=== PATIENT | female | born 1955 | race American Indian/Alaskan Native ===

== ENCOUNTER 2017-03-12 13:32 | Emergency (ER) | payer OTHER ==
[~2017-03-12] VITALS: Ht 162.6 cm; Wt 95.7 kg
--- OUTSIDE RECORDS SUMMARY | ~2017-03-12 | XMS | Clinical Summary ---
Demographics + + + | Address | [address] | | | [place] [address] | + + + | Home Phone | | + + + | Preferred Language | Unknown | + + + | Marital Status | Single | + + + | Confucianism Affiliation | BAP | + + + [...] | Unavailable | + + + Support +------+ +---------+ + | Name | Relationship | Address | Phone | +------+ +---------+ + ECON | Unknown | | +------+ +---------+ + Care Team Providers + +------+ + | Care Sales Director Name | Role | Phone | + +------+ + PP | Unavailable | + +------+ + Source Comments AMELIA is fully live [facility] both [facility] Allergies + + + + + [...] 2.5 mg by mouth | | | /2 | | Activ | | Oral Tablet [...] | | | | (FLU SHOT) | 7 | | | + + + + + Results Not on filefrom Last 3 Months
[~2017-03-12 13:32] MED LIST: ASPIR 8181 MG PO; BASLE60 GM; BETAMETHASONE V60 ML; BYETTA5 MCG/0.02 SQ; CRESTOR10 MG PO; DULERA 100 MCG/13 GM; ERGOCALCIF50000 UNIT; ERYTHROMYCIN3.5 GM OD; FLUCONAZOLE150 MG PO; GLIPIZIDE XL10 MG; GLIPIZIDE XL10 MG PO; GLYBURIDE5 MG PO; IBUPROFEN400 MG PO; ISOSORBIDE MONO30 MG PO; JANUVIA25 MG PO; LANTUS SOL100 UNIT/1 SUB-Q; LEVOTHROID125 MCG PO; LEVOTHYROXINE150 MCG; LEXAPRO20 MG PO; LISINOPRIL10 MG PO; MAGNESIUM400 MG; METOCLOPRAMIDE10 MG PO; METOPROLOL SUCC25 MG PO; NITROGLYCERIN0.4 MG SL; NORCO 5-325 TA1 EACH; NOVOLOG FL100 UNIT/1 SUB-Q; OMEGA-31000 MG PO; PRILOSEC20 MG PO; PROTOPIC100 G1 TP; SIMVASTATIN10 MG PO; SIMVASTATIN5 MG PO; SOOTHING CARE28 GM TOP; TEMOVATE EMOLLI60 GM; VANOS60 GM; VITAMIN D250000 UNIT PO; VITAMIN D5000 UNI1 PO; ZOLOFT25 MG PO
[2017-03-12] MEDS ORDERED: ASPIR 8181 MG PO (13:44)
--- NOTE | 2017-03-12 16:52 | EKG ---
[facility] [address] [facility] [place] [address] Signed Normal sinus rhythm Normal ECG When compared with ECG of 27-DEC-2015 05:55, No significant change was found Confirmed by LIS CORRAL MD ([id number]) on 03/12/2017 4:51:42 PM Electronically Signed By: LIS CORRAL MD 03/12/17 165 PATIENT NAME: RACHAEL GARCIA Electrocardiogram DATE OF : 51 PHYSICIAN: LIS CORRAL MD REPORT #: [id number] REPORT IS CONFIDENTIAL AND NOT TO BE RELEASED WITHOUT AUTHORIZATION
[2017-03-12] MEDS ORDERED: NITROGLYCERIN0.4 MG SL (17:25)
== END 2017-03-12 17:37 | disposition left against medical advice (07) ==
LOC: ED 13:32
DX: R07.9 Chest pain, unspecified (principal); R06.02 Shortness of breath; I10 Essential (primary) hypertension; K21.9 Gastro-esophageal reflux disease without esophagitis; E11.9 Type 2 diabetes mellitus without complications; E78.5 Hyperlipidemia, unspecified; Z90.49 Acquired absence of other specified parts of digestive tract; Z98.51 Tubal ligation status; Z95.5 Presence of coronary angioplasty implant and graft; Z88.2 Allergy status to sulfonamides; Z91.030 Bee allergy status; Z79.899 Other long term (current) drug therapy; Z79.4 Long term (current) use of insulin; Z79.82 Long term (current) use of aspirin
CPT/HCPCS: 36415; 71010; 80053; 84484; 85025; 85379; 93005; 93010; 99284

== ENCOUNTER 2017-06-19 09:12 | Observation (INO) | payer OTHER ==
[~2017-06-19] VITALS: Ht 162.6 cm; Wt 95.7 kg
--- OUTSIDE RECORDS SUMMARY | ~2017-06-19 | XMS | Clinical Summary ---
Demographics + + + | Address | [address] | | | [place] [address] | + + + | Home Phone | | + + + | Preferred Language | Unknown | + + + | Marital Status | Legally | + + + | Jew Affiliation | Unknown | + + + | Race | Unknown | + + + | Ethnic Group | Unknown | + + + Author + + + | Author | [facility] | | | and [place] | + + + | Organization | [facility] | | | and [place] | + + + | Address | Unknown | + + + | Phone | Unavailable | + + + Care Team Providers + +------+ + | Care Fish Peddler Name | Role | Phone | + [...] | 09/ | | Activ | | [place] [facility] | puffs every 6 hours | [...] | | + +--------+ +--------+ +---------+ | [facility] | IHS | xxxxxxxxx | Indemn [...] | Self | [birth year] | Home: | [address] | | | [place] | | 1956 | [phone] | [place] [address] | | | beulah | | | [phone] | | + +--------+ +--------+ + +
--- OUTSIDE RECORDS SUMMARY | ~2017-06-19 | XMS | Clinical Summary ---
Demographics + + + | Address | [address] | | | [place] [address] | + + + | Home Phone | | + + + | Preferred Language | Unknown | + + + | Marital Status | Unknown | + + + | Hoahaoism Affiliation | Unknown | + + + | Race | Unknown | + + + | Ethnic Group | Unknown | + + + Author + + + | Author | [facility] | + + + | Organization | [facility] | + + + | Address [...] Team Providers + +------+ + | Care Goring Cutter Name | Role | Phone | + [...] | | | Activ | | (DRISDOL) [id number] | mouth once a week. | | [...] | | | | | | [place] [address] | | | | | | [phone] | | | | | | | [...] | | | + +--------+ +------+-------+---------+ | [facility] | YELLOW | xxxxxxxxx | | [...] | Self | [birth year] | Home: | [address] | | | [place] | | [phone] | [place] | | | beulah | | | [phone] | [phone] | + +--------+ +--------+ + +
--- OUTSIDE RECORDS SUMMARY | ~2017-06-19 | XMS | Clinical Summary ---
Demographics + + + | Address | [address] | | | [place] [address] | + + + | Home Phone | | + + + | Preferred Language | Unknown | + + + | Marital Status | Single | + + + | Episcopalian Affiliation | BAP | + + + [...] Team Providers + +------+ + | Care Microcomputer Support Specialist Name | Role | Phone | + +------+ + PP | Unavailable | + +------+ + Source Comments AMELIA is fully live on both [facility] and [facility] InPatient.[facility] Allergies + + + + + + [...]
--- OUTSIDE RECORDS SUMMARY | ~2017-06-19 | XMS | Encounter Summary ---
Demographics + + + | Address | [address] | | | [place] [address] | + + + | Home Phone | | + + + | Preferred Language | Unknown | + + + | Marital Status | Unknown | + + + | Spiritism Affiliation | Unknown | + + + | Race | Unknown | + + + | Ethnic Group | Unknown | + + + Author + + + | Author | [facility] | + + + | Organization | [facility] | + + + | Address [...] Team Providers + +------+ + | Care Dental Coordinator Name | Role | Phone | + [...] [place], | | | | | [place] | [place] [address] | | | | | [address] | [phone] | | | | | [phone] | | | +--------+ + + + [...] | | | | | | [place] [address] | | | | | | [phone] | | | | | | | | +--------+ + + + + as of this encounter Visit Diagnoses Not on filein this encounter"
[2017-06-19] MEDS ORDERED: BETAMETHASONE V60 ML TOP (10:03)
--- OUTSIDE RECORDS SUMMARY | 2017-06-19 10:37 | XMS | Clinical Summary ---
Demographics + + + | Address | [address] | | | [place] [address] | + + + | Home Phone | | + + + | Preferred Language | Unknown | + + + | Marital Status | Unknown | + + + | Hinduism Affiliation | Unknown | + + + | Race | Unknown | + + + | Ethnic Group | Unknown | + + + Author + + + | Author | [employer] [facility] | + + + | Organization | [facility] [employer] | + + + | Address | Unknown | + + + | Phone | Unavailable | + + + Support + + +---------+ + | Name | Relationship | Address | Phone | + + +---------+ + | Raad Steward | ECON | Unknown | | + + +---------+ + | Shawn Peña | ECON | Unknown | | + + +---------+ + Care Team Providers + +------+ + | Care Laundromat Worker Name | Role | Phone | + +------+ + | Padmini Lo MD | PP | | + +------+ + Allergies + + + + + + | Active Allergy | Reactions | Severity | Noted | Comments | | | | | Date | | + + + + + + | Sulfa Antibiotics | Nausea Only | Low | 02/28/20 | | | | | | 14 | | + + + + + + Current Medications + + +-------+---------+------+------+-------+ | Prescription | Sig. | Disp. | Refills | Star | End | Statu | | | | | | t | Date | s | | | | | | Date | | | + + +-------+---------+------+------+-------+ | albuterol | Inhale 2 puffs into | | | | | Activ | | (PROVENTIL | the lungs every 4 | | | | | e | | HFA;VENTOLIN HFA) | (four) hours as | | | | | | | 108 (90 BASE) | needed for Wheezing. | | | | | | | MCG/ACT inhaler | | | | | | | + + +-------+---------+------+------+-------+ | insulin aspart | Inject 15 Units into | | | | | Activ | | (NOVOLOG) 100 | the skin 3 (three) | | | | | e | | UNIT/ML injection | times daily before | | | | | | | | meals. Sliding scale | | | | | | + + +-------+---------+------+------+-------+ | insulin glargine | Inject 40 Units into | | | | | Activ | | (LANTUS) 100 UNIT/ML | the skin 2 (two) | | | | | e | | injection | times daily. | | | | | | + + +-------+---------+------+------+-------+ | clotrimazole | Place 1 applicator | | | | | Activ | | (LOTRIMIN) 1 % | vaginally 2 (two) | | | | | e | | vaginal cream | times daily as | | | | | | | | needed. | | | | | | + + +-------+---------+------+------+-------+ | hydrocortisone 2.5 | Apply topically 2 | | | | | Activ | | % ointment | (two) times daily as | | | | | e | | | needed. | | | | | | + + +-------+---------+------+------+-------+ | methylcellulose | Place 1 drop into | | | | | Activ | | (ARTIFICIAL TEARS) 1 | both eyes nightly as | | | | | e | | % ophthalmic | needed. | | | | | | | solution | | | | | | | + + +-------+---------+------+------+-------+ | levothyroxine | Take 150 mcg by | | | | | Activ | | (SYNTHROID) 150 MCG | mouth every morning | | | | | e | | tablet | before breakfast. | | | | | | + + +-------+---------+------+------+-------+ | aspirin 81 MG EC | Take 81 mg by mouth | | | | | Activ | | tablet | daily with | | | | | e | | | breakfast. | | | | | | + + +-------+---------+------+------+-------+ | nitroGLYCERIN | Place 0.4 mg under | | | | | Activ | | (NITROSTAT) 0.4 MG | the tongue every 5 | | | | | e | | SL tablet | (five) minutes as | | | | | | | | needed for Chest | | | | | | | | pain. | | | | | | + + +-------+---------+------+------+-------+ | ergocalciferol | Take 50,000 Units by | | | | | Activ | | (DRISDOL) 92774 | mouth once a week. | | | | | e | | UNITS capsule | | | | | | | + + +-------+---------+------+------+-------+ | escitalopram | Take 10 mg by mouth | | | | | Activ | | (LEXAPRO) 20 MG | daily. | | | | | e | | tablet | | | | | | | + + +-------+---------+------+------+-------+ | ibuprofen (MOTRIN) | Take 600 mg by mouth | | | | | Activ | | 600 MG tablet | every 6 (six) hours | | | | | e | | | as needed for Pain. | | | | | | + + +-------+---------+------+------+-------+ | | Take 1 tablet by | | | | | Activ | | HYDROcodone-acetamin | mouth every 6 (six) | | | | | e | | ophen (KADLEC | hours as needed for | | | | | | | DISPENSED | Pain. | | | | | | | MEDICATION) 5-325 MG | | | | | | | | (6 tab pre-ronald) | | | | | | | + + +-------+---------+------+------+-------+ | metoprolol | Take 25 mg by mouth | | | | | Activ | | (TOPROL-XL) 25 MG 24 | daily. | | | | | e | | hr tablet | | | | | | | + + +-------+---------+------+------+-------+ | omeprazole | Take 20 mg by mouth | | | | | Activ | | (PRILOSEC) 20 MG | every morning before | | | | | e | | capsule | breakfast. | | | | | | + + +-------+---------+------+------+-------+ | simvastatin | Take 10 mg by mouth | | | | | Activ | | (ZOCOR) 10 MG tablet | nightly. | | | | | e | + + +-------+---------+------+------+-------+ | magnesium oxide | Take 400 mg by mouth | | | | | Activ | | (MAG-OX) 400 MG | nightly. | | | | | e | | tablet | | | | | | | + + +-------+---------+------+------+-------+ Active Problems + + + | Problem | Noted Date | + + + | CAD (coronary artery disease) | 02/27/2014 | + + + + + | Last Assessment & Plan: 1V-CAD, Hx PCI/stent, LVEF 60-65%. | | 59yo MARCUS, with known coronary disease, she's been plagued | | by frequent recurrent episodes of chest discomfort, somewhat | | atypical nature. They generally are migratory, and fleeting. A | | nuclear perfusion study has been performed, and this is benign. | | Recent labs reviewed. Reassurance given. Tolerating | | medications. No changes in therapy. Lifestyle modifications | | encouraged, this includes exercise and caloric restriction.Hx | | CABG: noHx PCI/stent: 12/23/2004, LAD (2.75*18mm Cypher DARY).Hx | | Pacemaker/ICD: noLast Cath: 12/01/2006: left main OK, LAD stent | | patent with 20% distal in-stent restenosis, LCx OK, RCA | | non-dominant, LVEF 65%.Last Echo, 08/19/2010: LVEF 60-65%, mild | | LAE, mild MR, mild TR, trace AI, trace PI.Last stress test, | | 06/03/2014: 5:15min Jose Francisco, no chest pain, ECG (-), images NML, | | LVEF 69%.ECG, 01/23/2014: sinus rhythm, PRWP, non-spec ST-T | | changes anteriorly. | + + + + + | HTN (hypertension) | 02/27/2014 | + + + + + | Last Assessment & Plan: Hypertension, controlled, continue | | current meds.Lab, 06/23/2014: Trop-T: <0.010, AST/ALT: 5877, K: | | 4.4, BUN/Cr: 101/0.6, glu: 348, M.7 | | WBC: 6.8, H/H: 13.0/41.9, plt: 224Lab, 09/03/2014: TSH: 2.17, free | | T4: 1.44, HgbA1c: 10.7 | + + + + + | HLD (hyperlipidemia) | 02/27/2014 | + + + + + | Last Assessment & Plan: Hyperlipidemia, managed by PCP. Labs | | requested. | + + + + + | Diabetes mellitus, type 2 | 02/27/2014 | + + + + + | Last Assessment & Plan: DM2, managed by PCP. | + + + + + | GERD (gastroesophageal reflux disease) | 02/27/2014 | + + + + + | Last Assessment & Plan: Hx HH/GERD, IBS. | + + Encounters +--------+ + + + + | Date | Type | Specialty | Care Team | Description | +--------+ + + + + | 03/23/ | Documentati | | Josh Cullen, | | | 2017 | on Only | | MD | | +--------+ + + + + from Last 3 Months Family History + + +------+ + | Medical History | Relation | Name | Comments | + + +------+ + | Heart disease | Father | | | + + +------+ + | Hypertension | Mother | | | + + +------+ + + +------+ + + | Relation | Name | Status | Comments | + +------+ + + | Father | | | heart disease, cirrhosis of liver | | | | (Age | | | | | 72) | | + +------+ + + | Mother | | | MVA, Angina Pectoris,HTN | | | | (Age | | | | | 54) | | + +------+ + + Social History + + + +--------+ + | Tobacco Use | Types | Packs/Day | Years | Date | | | | | Used | | + + + +--------+ + | Former Smoker | Cigarettes | 1 | 41 | Quit: 06/11/2006 | + + + +--------+ + + +---+---+---+ | Smokeless Tobacco: | | | | | Never Used | | | | + +---+---+---+ + + +---------+ + | Alcohol Use | Drinks/We | oz/Week | Comments | | | ek | | | + + +---------+ + | No | 0 | 0.0 | | | | Standard | | | | | drinks or | | | | | | | | | | equivalen | | | | | t | | | + + +---------+ + + + + | Sex Assigned at | Date Recorded | | | | + + + | Not on file | | + + + Last Filed Vital Signs + + + + | Vital Sign | Reading | Time Taken | + + + + | Blood Pressure | 110/64 | 09/04/2014 12:44 PM PDT | + + + + | Pulse | 64 | 09/04/2014 12:44 PM PDT | + + + + | Temperature | - | - | + + + + | Respiratory Rate | 16 | 09/04/2014 12:44 PM PDT | + + + + | Oxygen Saturation | 98% | 09/04/2014 12:44 PM PDT | + + + + | Inhaled Oxygen | - | - | | Concentration | | | + + + + | Weight | 91.6 kg (202 lb) | 09/04/2014 12:44 PM PDT | + + + + | Height | 162.6 cm (5' 4") | 09/04/2014 12:44 PM PDT | + + + + | Body Mass Index | 34.67 | 09/04/2014 12:44 PM PDT | + + + + Plan of Treatment +--------+ + + + + | Date | Type | Specialty | Care Team | Description | +--------+ + + + + | 07/24/ | Initial | | Josh Cullen, | | | 2018 | consult | | MD [address] | | | | | | [place], | | | | | | [place] [address] | | | | | | [phone] | | | | | | | | +--------+ + + + + + + + + + | Health Maintenance | Due Date | Last Done | Comments | + + + + + | Diabetic Eye Exam | | | | | | 4 | | | + + + + + | Diabetic Foot Exam | | | | | | 4 | | | + + + + + | Hemoglobin A1c | | | | | | 4 | | | + + + + + | Microalbumin | | | | | Screening | 4 | | | + + + + + | Vaccine: | | | | | Dtap/Tdap/Td (1 - | 3 | | | | Tdap) | | | | + + + + + | Vaccine: | | | | | Pneumococcal 19-64 | 3 | | | | (PPSV23 only) Medium | | | | | Risk (1 of 1 - | | | | | PPSV23) | | | | + + + + + | Cervical Cancer | | | | | Screening (Pap) | 5 | | | + + + + + | Breast Cancer | | | | | Screening | 4 | | | | (Mammogram) | | | | + + + + + | Colon Cancer | | | | | Screening | 4 | | | | (Colonoscopy) | | | | + + + + + | Vaccine: Zoster (#1) | | | | | | 4 | | | + + + + + | Statin Therapy | | | | | (optimal intensity) | 6 | | | + + + + + | Vaccine: Influenza | | | | | (Season Ended) | 8 | | | + + + + + Results Not on filefrom Last 3 Months Insurance + +--------+ +------+-------+---------+ | Payer | Benefi | Subscriber | Type | Phone | Address | | | t Plan | ID | | | | | | / | | | | | | | Group | | | | | + +--------+ +------+-------+---------+ | [employer] | YELLOW | xxxxxxxxx | | | | | PLANS | [place] | | | | | + +--------+ +------+-------+---------+ + +--------+ +--------+ + + | Guarantor Name | Accoun | Relation to | Date | Phone | Billing Address | | | t Type | Patient | of | | | | | | | | | | + +--------+ +--------+ + + | RACHAEL CARCAMO | Person | Self [birth year] Home: | [address] | | | [place] | | [phone] [place] | | | [place] | | | [phone] | [address] | + +--------+ +--------+ + +
--- OUTSIDE RECORDS SUMMARY | 2017-06-19 10:37 | XMS | Encounter Summary ---
Demographics + + + | Address | [address] | | | [place] [address] | + + + | Home Phone | | + + + | Preferred Language | Unknown | + + + | Marital Status | Unknown | + + + | Gnosticist Affiliation | Unknown | + + + | Race | Unknown | + + + | Ethnic Group | Unknown | + + + Author + + + | Author | [employer] | + + + | Organization | [facility] [employer] | + + + | Address [...] Team Providers + +------+ + | Care Support Architect Name | Role | Phone | + +------+ + | Padmini Lo MD | PCP | | + +------+ + Encounter Details +--------+ + + + + | Date | Type | Department | Care Team | Description | +--------+ + + + + | 03/23/ | Documentati | [facility] | Josh Cullen, | | | 2018 | on Only | Cardiology Eric | [address] | | | | | [address] | [place], | | | | | [place] | [place] [address] | | | | | [address] | [phone] | | | | | [phone] | | | +--------+ + + + + Social History + + + [...] on file | | + + + as of this encounter Plan of Treatment +--------+ + + + + | Date | Type | Specialty | Care Team | Description | +--------+ + + + + | 07/24/ | Initial | Cardiology | Josh Cullen, | | | 2018 | consult | | [address] | | | | | | [place], | | | | | | [place] [address] | | | | | | [phone] | | | | | | | | +--------+ + + + + as of this encounter Visit Diagnoses Not on filein this encounter"
--- OUTSIDE RECORDS SUMMARY | 2017-06-19 10:37 | XMS | Clinical Summary ---
Demographics + + + | Address | [address] | | | [place] [address] | + + + | Home Phone | | + + + | Preferred Language | Unknown | + + + | Marital Status | Single | + + + | Temple Affiliation | BAP | + + + | Race | White | + + + | Ethnic Group | Not or | + + + Author + + + | Author | [facility] | + + + | Organization | NON REVEN[facility] LOC[facility] | + + + | Address | Unknown | + + + | Phone | Unavailable | + + + Support + + +---------+ + | Name | Relationship | Address | Phone | + + +---------+ + | KHUSHI PIERCE | ECON | Unknown | | + + +---------+ + Care Team Providers + +------+ + | Care Lion Tamer Name | Role | Phone | + +------+ + PP | Unavailable | + +------+ + Source Comments [facility] is [facility] and [facility] Allergies + + + + + + | Active Allergy | Reactions | Severity | Noted | Comments | | | | | Date | | + + + + + + | Penicillins | | | 04/05/19 | | | | | | 11 | | + + + + + + | Sulfa (Sulfonamide | | | 04/05/19 | | | Antibiotics) | | | 11 | | + + + + + + Current Medications + + +-------+---------+------+------+-------+ | Prescription | Sig. | Disp. | Refills | Star | End | Statu | | | | | | t | Date | s | | | | | | Date | | | + + +-------+---------+------+------+-------+ | glyBURIDE 2.5 mg | Take 2.5 mg by mouth | | | 03/14 | | Activ | | Oral Tablet | two times daily. | | | 06/30 | | e | | | | | | 11 | | | + + +-------+---------+------+------+-------+ | Aspirin 81 mg Oral | Take 81 mg by mouth | | | | | Activ | | Tablet | once daily. | | | | | e | + + +-------+---------+------+------+-------+ | omeprazole 20 mg | Take 20 mg by mouth | | | | | Activ | | Oral Capsule, | once daily. | | | | | e | | Delayed | | | | | | | | Release(E.C.) | | | | | | | + + +-------+---------+------+------+-------+ | levothyroxine 150 | Take 150 mcg by | | | | | Activ | | mcg Oral Tablet | mouth once daily. | | | | | e | + + +-------+---------+------+------+-------+ | Ergocalciferol, | Take 50,000 Units by | | | | | Activ | | Vitamin D2, 50,000 | mouth. | | | | | e | | unit Oral Tablet | | | | | | | + + +-------+---------+------+------+-------+ | docusate sodium | Take 100 mg by mouth | | | | | Activ | | 100 mg Oral Capsule | two times daily. | | | | | e | + + +-------+---------+------+------+-------+ | SALSALATE ORAL | Take by mouth. | | | | | Activ | | | | | | | | e | + + +-------+---------+------+------+-------+ | IPRATROPIUM | Inhale. | | | | | Activ | | BROMIDE INHL | | | | | | e | + + +-------+---------+------+------+-------+ | nitroglycerin 0.3 | Place 0.3 mg under | | | | | Activ | | mg Sublingual | tongue every five | | | | | e | | Tablet, Sublingual | minutes as needed. | | | | | | | | Do not crush. Place | | | | | | | | under tongue and | | | | | | | | allow to dissolve. | | | | | | | | Administer every 5 | | | | | | | | minutes for a | | | | | | | | maximum of 3 doses | | | | | | | | in 15 minutes. | | | | | | + + +-------+---------+------+------+-------+ | hydrocortisone 2.5 | by Topical route two | | | | | Activ | | % Topical Cream | times daily. Apply | | | | | e | | | a thin film to | | | | | | | | clean, dry skin and | | | | | | | | rub in gently. | | | | | | + + +-------+---------+------+------+-------+ | Hydrophilic | by Topical route. | | | | | Activ | | Topical Ointment | | | | | | e | + + +-------+---------+------+------+-------+ | pioglitazone | Take 15 mg by mouth | | | | | Activ | | (ACTOS) 15 mg Oral | once daily. | | | | | e | | Tablet | | | | | | | + + +-------+---------+------+------+-------+ Active Problems + + + | Problem | Noted Date | + + + | Enchondroma | 04/22/2010 | + + + Family History + + +------+ + | Medical History | Relation | Name | Comments | + + +------+ + | Heart Disease | Brother | | | + + +------+ + | Heart Disease | Brother | | | + + +------+ + | Heart Disease | Father | | | + + +------+ + | Cancer | Maternal | | | | | Aunt | | | + + +------+ + | Diabetes | Maternal | | | | | Aunt | | | + + +------+ + | Diabetes | Maternal | | | | | Uncle | | | + + +------+ + | Cancer | Mother | | stomach;uterus | + + +------+ + | Heart Disease | Mother | | | + + +------+ + + +------+--------+ + | Relation | Name | Status | Comments | + +------+--------+ + | Brother | | | | + +------+--------+ + | Brother | | | | + +------+--------+ + | Father | | | | + +------+--------+ + | Maternal Aunt | | | | + +------+--------+ + | Maternal Uncle | | | | + +------+--------+ + | Mother | | | | + +------+--------+ + Social History + +-------+ +--------+------+ | Tobacco Use | Types | Packs/Day | Years | Date | | | | | Used | | + +-------+ +--------+------+ | Never Assessed | | | | | + +-------+ +--------+------+ + + + | Sex Assigned at | Date Recorded | | | | + + + | Not on file | | + + + Last Filed Vital Signs + + + + | Vital Sign | Reading | Time Taken | + + + + | Blood Pressure | 122/77 | 04/05/2010 1:08 PM PST | + + + + | Pulse | 87 | 04/05/2010 1:08 PM PST | + + + + | Temperature | 36.6 C (97.9 F) | 10/04/2010 2:59 PM PDT | + + + + | Respiratory Rate | - | - | + + + + | Oxygen Saturation | - | - | + + + + | Inhaled Oxygen | - | - | | Concentration | | | + + + + | Weight | 95.3 kg (210 lb) | 10/04/2010 2:59 PM PDT | + + + + | Height | 162.6 cm (5' 4") | 10/04/2010 2:59 PM PDT | + + + + | Body Mass Index | 36.05 | 10/04/2010 2:59 PM PDT | + + + + Plan of Treatment + + + + + | Health Maintenance | Due Date | Last Done | Comments | + + + + + | INFLUENZA VACCINE | | | | | (FLU SHOT) | 8 | | | + + + + + Results Not on filefrom Last 3 Months
--- OUTSIDE RECORDS SUMMARY | 2017-06-19 10:37 | XMS | Clinical Summary ---
Demographics + + + | Address | [address] | | | [place] [address] | + + + | Home Phone | | + + + | Preferred Language | Unknown | + + + | Marital Status | Legally | + + + | Lutheran Affiliation | Unknown | + + + | Race | Unknown | + + + | Ethnic Group | Unknown | + + + Author + + + | Author | [facility] | | | and [place] | + + + | Organization | [facility] | | | and [place] | + + + | Address | Unknown | + + + | Phone | Unavailable | + + + Care Team Providers + +------+ + | Care Video Games Storywriter Name | Role | Phone | + +------+ + | Kevin Eagle PA-C | PP | | + +------+ + Allergies + + + +--------+ + | Active Allergy | Reactions | Severity | Noted | Comments | | | | | Date | | + + + +--------+ + | Amoxicillin-Pot | | | | | | Clavulanate | | | | | + + + +--------+ + | Bee Venom | | | | | + + + +--------+ + | Soap | | | | SDS: Sodium | | | | | | dodecyl sulfate | + + + +--------+ + | Sulfa Antibiotics | | | | | + + + +--------+ + Current Medications + + +-------+---------+------+------+-------+ | Prescription | Sig. | Disp. | Refills | Star | End | Statu | | | | | | t | Date | s | | | | | | Date | | | + + +-------+---------+------+------+-------+ | ergocalciferol | Take 50,000 Units by | | | 09/1 | | Activ | | (VITAMIN D-2) 50,000 | mouth Every 30 | | | 4/20 | | e | | units capsule | days. | | | 12 | | | + + +-------+---------+------+------+-------+ | hydrophilic | Apply a thin layer | | | 09/1 | | Activ | | ointment | to the affected area | | | 4/20 | | e | | | of feet every | | | 12 | | | | | morning | | | | | | + + +-------+---------+------+------+-------+ | mupirocin | Apply a small amount | | | 09/1 | | Activ | | (BACTROBAN) 2% | in each nostril at | | | 20 | | e | | ointment | bedtime and apply a | | | 12 | | | | | thin layer to the | | | | | | | | affected area four | | | | | | | | times a day as | | | | | | | | directed for | | | | | | | | infection | | | | | | + + +-------+---------+------+------+-------+ | simvastatin | Take 20 mg by mouth | | | 11/11 | | Activ | | (ZOCOR) 20 mg tablet | every evening. | | | 06/30 | | e | | | | | | 12 | | | + + +-------+---------+------+------+-------+ | | Take 1 tablet by | | | 11/11 | | Activ | | amoxicillin-clavulan | mouth twice daily | | | 06/30 | | e | | ate (AUGMENTIN) | with meals until all | | | 12 | | | | 875-125 mg per | taken for infection | | | | | | | tablet | | | | | | | + + +-------+---------+------+------+-------+ | aspirin 325 mg EC | Take 325 mg by mouth | | | 09/1 | | Activ | | tablet | Daily. | | | 420 | | e | | | | | | 12 | | | + + +-------+---------+------+------+-------+ | glucose blood | Use as directed | | | 11/11 | | Activ | | test strips (CHERRY | | | | 06/30 | | e | | CONTOUR TEST) strip | | | | 12 | | | + + +-------+---------+------+------+-------+ | glyBURIDE | Take 2.5 mg by mouth | | | 1 | | Activ | | (DIABETA) 2.5 mg | 2 times daily. | | | 20 | | e | | tablet | | | | 12 | | | + + +-------+---------+------+------+-------+ | hydrocortisone 2.5 | Apply a thin layer | | | / | | Activ | | % ointment | to the affected area | | | 420 | | e | | | two times daily | | | 12 | | | + + +-------+---------+------+------+-------+ | Ipratropium | AERS Inhale 1 to 2 | | | 09/ | | Activ | | [place] HFA | puffs every 6 hours | | | 20 | | e | | (ATROVENT HFA IN) | as needed for | | | 12 | | | | | shortness of breath | | | | | | + + +-------+---------+------+------+-------+ | levothyroxine | Take 1 tablet by | | | 11/11 | | Activ | | (SYNTHROID, | mouth once daily on | | | 06/30 | | e | | LEVOTHROID) 150 mcg | empty stomach with | | | 12 | | | | tablet | water and wait 30 | | | | | | | | minutes before | | | | | | | | eating | | | | | | + + +-------+---------+------+------+-------+ | nitroglycerin | Take 1 tablet | | | 11/11 | | Activ | | (NITROSTAT) 0.4 mg | sublingually every 5 | | | 20 | | e | | SL tablet | minutes up to 3 | | | 12 | | | | | tablets total for | | | | | | | | chest pain. Call 911 | | | | | | | | or go to ER if not | | | | | | | | relieved. | | | | | | + + +-------+---------+------+------+-------+ | omeprazole | Take 20 mg by mouth | | | 11/11 | | Activ | | (PRILOSEC) 20 mg | 2 times daily. | | | 06/30 | | e | | capsule | | | | 12 | | | + + +-------+---------+------+------+-------+ | Pioglitazone HCl | TABS daily | | | 11/11 | | Activ | | (ACTOS PO) | | | | 06/30 | | e | | | | | | 12 | | | + + +-------+---------+------+------+-------+ | | Take 5-500 mg by | | | 11/11 | | Activ | | HYDROcodone-acetamin | mouth as needed. | | | 06/30 | | e | | ophen (VICODIN) | | | | 12 | | | | 5-500 mg per tablet | | | | | | | + + +-------+---------+------+------+-------+ Active Problems + + + | Problem | Noted Date | + + + | HYPOTHYROIDISM | | + + + | DIABETES MELLITUS, TYPE II | | + + + | CHRONIC OBSTRUCTIVE PULMONARY DISEASE | | + + + | CORONARY ARTERY DISEASE | | + + + | URINARY INCONTINENCE | | + + + | DYSPNEA ON EXERTION | | + + + | GASTROESOPHAGEAL REFLUX DISEASE | | + + + | NONSPEC ELEVATION OF LEVELS OF TRANSAMINASE/LDH | | + + + | HYPERLIPIDEMIA | | + + + | BREAST TENDERNESS | | + + + | ABDOMINAL PAIN OTHER SPECIFIED SITE | | + + + | PSORIASIS | | + + + Social History + +-------+ +--------+------+ | [...] + + + | Blood Pressure | 120/60 | 07/29/2010 0000 PDT | + + + + | Pulse | - | - | + + + + | Temperature | - | - | + + + + | Respiratory Rate | - | - | + + + + | Oxygen Saturation | - | - | + + + + | Inhaled Oxygen | - | - | | Concentration | | | + + + + | Weight | 92.5 kg (204 lb) | 07/29/2010 0000 PDT | + + + + | Height | 165.1 cm (5' 5") | 04/09/2010 0000 PST | + + + + | Body Mass Index | 33.95 | 07/29/2010 0000 PDT | + + + + Plan of Treatment + + + + + | Health Maintenance | Due Date | Last Done | Comments | + + + + + | Hepatitis C | | | | | Screening | 4 | | | + + + + + | Diabetic Eye Exam | | | | | (Bi-Annually) | 2 | | | + + + + + | Diabetic Foot Exam | | | | | | 2 | | | + + + + + | Hemoglobin A1c Q3 | | | | | Months | 2 | | | + + + + [...] | + + + + + | CERVICAL CANCER | | | | | SCREENING (PAP EVERY | 5 | | | | 3 YEARS 21-64 ) | | | | + + + + + | BREAST CANCER | | | | | SCREENING (MAMM Q2 | 4 | | | | YEARS 50-74) | | | | + + + + + | COLON CANCER | | | | | SCREENING | 4 | | | | (COLONOSCOPY EVERY | | | | | 10 YEARS 50-75) | | | | + + + + + | Vaccine: Zoster (#1) | | | | | | 4 | | | + + + + + | Microalbumin | | | | | Screening | 5 | | | + + + + + | Statin Therapy | | | | | (optimal intensity) | 5 | | | + + + + + | Vaccine: Influenza | | | | | (Season Ended) | 8 | | | + + + + + Results Not on filefrom Last 3 Months Insurance + +--------+ +--------+ +---------+ | Payer | Benefi | Subscriber | Type | Phone | Address | | | t Plan | ID | | | | | | / | | | | | | | Group | | | | | + +--------+ +--------+ +---------+ | [employer] | MODA | xxxxxxxx | Medica | +1- | | | MEDICAID HMO | HEALTH | | id | [id number] | | | | MDCD | | | | | | | HMO [place] | | | | | + +--------+ +--------+ +---------+ | [employer] [facility] | IHS | xxxxxxxxx | Indemn | | | | SERVICE | YELLOW | | ity | | | | | HAWK | | | | | + +--------+ +--------+ +---------+ + +--------+ +--------+ + + | Guarantor Name | Accoun | Relation to | Date | Phone | Billing Address | | | t Type | Patient | of | | | | | | | | | | + +--------+ +--------+ + + | ALBERT CARCAMO | Person | Self | [birth year] | Home: | [address] | | | [place] | | 1956 | [phone] | [place] [address] | | | beulah | | | [phone] | | + +--------+ +--------+ + +
--- NOTE | 2017-06-20 07:22 | EKG ---
[facility] [address] [facility] [place], [place] [address] Signed Normal sinus rhythm Inferior infarct , age undetermined Abnormal ECG When compared with ECG of 12-MAR-2017 13:36, No significant change was found Confirmed by LIS CORRAL MD ([id number]) on 06/20/2017 7:22:10 AM Electronically Signed By: LIS CORRAL MD 06/20/17 0722 PATIENT NAME: RACHAEL GARCIA Electrocardiogram DATE OF : 51 PHYSICIAN: LIS CORRAL MD REPORT #: [id number] REPORT IS CONFIDENTIAL AND NOT TO BE RELEASED WITHOUT AUTHORIZATION
--- NOTE | 2017-06-20 07:58 | CONS ---
[facility] [address] [place], [place] [address] Signed DATE OF CONSULTATION: 06/19/2017 CHIEF COMPLAINT: Right lower quadrant abdominal pain. HISTORY OF PRESENT ILLNESS: Mariece is a 62-year-old diabetic female, who developed epigastric and periumbilical pain that is localized to the right lower quadrant over the last day. She has had nausea and dry heaves along with anorexia. She came to the ER for evaluation. Although the white count is normal. She has a left shift and she is tender in the right lower quadrant. The CT scan showed an thickened inflamed appendix with periappendiceal fat stranding. Consequently, I was asked to admit her earlier today. She has been n.p.o. and started on Rocephin and Flagyl and given pain control. PAST MEDICAL HISTORY: 1. Gastroesophageal reflux disease. 2. COPD. 3. Hypertension. 4. Diabetes. 5. Coronary artery disease. 6. Angina. 7. Irritable bowel syndrome. 8. Hyperlipidemia. 9. Obesity. 10. Uterine prolapse. 11. Psoriasis. PAST SURGICAL HISTORY: Includes: 1. Laparoscopic cholecystectomy. 2. Cardiac stents in 2004. 3. Bilateral tubal ligation. 4. Sinus surgery. 5. Left great toe surgery. SOCIAL HISTORY: She does not smoke or drink. She lives with her partner. Her son is Raad Steward. She prefers the [facility]. Her primary care provider is Abiola Holland. FAMILY HISTORY: Mom had ovarian cancer. She is not sure about her dad. REVIEW OF SYSTEMS: Electronically Signed By: RICK CARRILLO MD 06/20/17 0758 PATIENT NAME: ALBERT GARCIA CONSULTATION DATE OF : 51 REPORT #: [id number] PHYSICIAN: RICK CARRILLO MD PCP: ABIOLA HOLLAND REPORT IS CONFIDENTIAL AND NOT TO BE RELEASED WITHOUT AUTHORIZATION [facility] [address] [place], [place] [address] Signed She had 10 systems reviewed and there were no new findings. She said she has no metal in the body. ALLERGIES: Sulfa and bee stings. MEDICATIONS: 1. Nitroglycerin. 2. Tacrolimus. 3. Metoprolol. 4. Magnesium oxide. 5. Lexapro. 6. Levothyroxine. 7. Dulera. 8. Lantus. 9. Hydrocortisone. 10. NovoLog. 11. Vitamin D. 12. Aspirin. 13. Betamethasone. PHYSICAL EXAMINATION: VITAL SIGNS: Blood pressure 155/66, heart rate 79, respiratory rate 18, and temperature is 98.2. She is 95% on room air. She is 5 feet 4 inches at 95 kg. GENERAL: Meredithece is a 62-year-old female appears generally healthy and her stated age. Her boyfriend is in the room along with I believe family friend or daughter. She does not appear systemically ill or toxic. LUNGS: Clear to auscultation bilaterally. HEART: Regular rate and rhythm. ABDOMEN: Obese, but soft. She is tender in the right lower quadrant. LABORATORY DATA: Her white blood cell count is 8.5, neutrophils 86, BUN 9, creatinine 0.6, total bilirubin 0.7, AST 71, ALT 80, alkaline phosphatase 104, albumin 3.9, and lipase 13. Urinalysis negative. RADIOGRAPHIC STUDIES: CT scan of abdomen and pelvis is reviewed along with the report. It shows a slightly thickened inflamed appendix. Chest x-ray is unremarkable. ASSESSMENT AND PLAN: Albert is a 62-year-old, obese, diabetic female, who presents with acute appendicitis. I have discussed with her the location of function of the appendix. We have discussed laparoscopic versus open appendectomy. She understands expected intraop and postop Electronically Signed By: RICK CARRILLO MD 06/20/17 0758 PATIENT NAME: ALBERT GARCIA CONSULTATION DATE OF : 51 REPORT #: [id number] PHYSICIAN: RICK CARRILLO MD PCP: ABIOLA HOLLAND REPORT IS CONFIDENTIAL AND NOT TO BE RELEASED WITHOUT AUTHORIZATION [facility] [address] [place], [place] [address] Signed course. There is risk of surgery including, but not limited to, bleeding, infection, scarring, change in contour of the skin, damage to bowel, appendiceal stump leak, postoperative intraabdominal abscess, incisional hernias, and other unforeseen comorbidities. She has expressed understanding and wishes to proceed. Rick Carrillo MD ALB/BRANDONL /[id number] cc: MUMTAZ Rolon MD Copies: ABIOLA HOLLAND ANDREW L MD ~ Electronically Signed By: RICK CARRILLO MD 06/20/17 0758 PATIENT NAME: ALBERT GARCIA CONSULTATION DATE OF : 51 REPORT #: [id number] PHYSICIAN: RICK CARRILLO MD PCP: ABIOLA HOLLAND REPORT IS CONFIDENTIAL AND NOT TO BE RELEASED WITHOUT AUTHORIZATION
--- NOTE | 2017-06-20 07:58 | OR ---
[facility] [address] [place], [place] [address] Signed DATE OF OPERATION: 06/19/2017 SURGEON: Rick Carrillo MD PREOPERATIVE DIAGNOSIS: Acute appendicitis. POSTOPERATIVE DIAGNOSIS: Acute inflamed appendicitis. PROCEDURE: Laparoscopic appendectomy. ESTIMATED BLOOD LOSS: Minimal. INDICATIONS: Albert is a 62-year-old obese diabetic female, who over about a day or so developed epigastric and periumbilical pain, which localized to the right lower quadrant. She had nausea, dry heaves, and anorexia. She came to the emergency room for evaluation. She was tender in the right lower quadrant with a normal white count, but elevated neutrophils. The chest x-ray was fine. CT scan of the abdomen and pelvis showed an inflamed thickened appendix with fat stranding around the appendix. Consequently, I was asked to admit her to general surgeon on-call. She was given Rocephin and Flagyl earlier today along with IV fluids and we started her on a sliding scale regular insulin. Overall, she is doing better, but fiber machine tender in the right lower quadrant even with her pain medication. I met with Albert and her boyfriend and family, and we discussed the above findings. We reviewed the location and function of the appendix. We discussed laparoscopic versus open appendectomy. They understand the expected intraoperative and postoperative course. There is risk to surgery including, but not limited to bleeding, infection, scarring, change in contour of the skin, damage to bowel, appendiceal stump leak, postoperative intraabdominal abscess, incisional hernias and other unforeseen comorbidities. She had expressed understanding and wished to proceed. PROCEDURE NOTE: Albert was taken into our operating room and placed in the supine position under general endotracheal tube anesthesia. She was given preoperative antibiotics along with subcutaneous heparin. SCDs were utilized. Bain catheter was inserted with return of clear yellow urine. She was then prepped and draped in the usual sterile fashion. All Electronically Signed By: RICK CARRILLO MD 06/20/17 0758 PATIENT NAME: ALBERT GARCIA OPERATIVE REPORT DATE OF : 51 REPORT #: [id number] PHYSICIAN: RICK CARRILLO MD PCP: ABIOLA SANTANA REPORT IS CONFIDENTIAL AND NOT TO BE RELEASED WITHOUT AUTHORIZATION [facility] [address] [place], [place] [address] Signed trocars were placed in the usual positions under direct visualization of camera without difficulty. We could see that she has a fatty liver. We were able to sweep the omentum off the cecum, where it was speckled in red. The anterior taenia coli was followed down to the appendix and the appendix was elevated and cleared off at the base of the appendix with the help of the cautery. The appendix was divided from the cecum with the help of a linear stapler. Hemostasis was easily achieved with the cautery. The mesoappendix was divided between the vascular load on the stapler, and again, there was one small vessel bleeding and it was easily controlled with the cautery. The appendix was then placed into an EndoCatch bag and taken out through the right subcostal trocar site. The right lower quadrant was irrigated and suctioned out until clear. We used our laparoscopic suturing device to pass 0 Vicryl suture on either side of the fascia of the subxiphoid trocar site. This was tied down to close this fascia primarily. After this, the remaining trocars were removed. We closed the fascia of the supraumbilical trocar site with interrupted 0 Vicryl sutures. Local anesthetic was injected into all trocar sites. The skin of each trocar site was then closed with interrupted 3-0 subcuticular Monocryl sutures. Dry gauze and tape were applied to all incisions. Albert was then awakened from her anesthesia, extubated in the OR, and taken to recovery room in stable condition. Rick Carrillo MD ALB/MODL /[id number] cc: MUMTAZ Rolon Copies: ABIOLA SANTANA ~ Electronically Signed By: RICK CARRILLO MD 06/20/17 0758 PATIENT NAME: ALBERT GARCIA OPERATIVE REPORT DATE OF : 51 REPORT #: [id number] PHYSICIAN: RICK CARRILLO MD PCP: ABIOLA SANTANA REPORT IS CONFIDENTIAL AND NOT TO BE RELEASED WITHOUT AUTHORIZATION
[2017-06-20] MEDS ORDERED: NORCO 5-325 TA1 EACH PO (12:04)
--- NOTE | 2017-06-21 08:57 | DS ---
[facility] [address] [place], [place] [address] Signed ADMISSION DATE: 06/19/2017 DISCHARGE DATE: 06/20/2017 FINAL DIAGNOSIS: Acute appendicitis. PROCEDURE: Laparoscopic appendectomy. HISTORY OF PRESENT ILLNESS: Albert is a 62-year-old female, who came to us with periumbilical pain that had localized to the right lower quadrant associated with nausea, vomiting, and anorexia. White count was normal with a little bit of a left shift. CT scan confirmed an inflamed appendix. Consequently, I was asked to admit her as a general surgeon on-call. HOSPITAL COURSE: Albert was brought into the hospital as above, hydrated, and given antibiotics and pain control. We took her to the operating room later that same day for an uncomplicated laparoscopic appendectomy for acute inflamed appendicitis. Although, she did have a little necrosis of the appendix as it was approaching the proximal 1/3. Her intra and postop course had been uncomplicated. She rapidly transitioned from her liquid diet to a regular diet. She is eating well and has no nausea or vomiting. She has a little pain in between otherwise doing fine. Given her progress, she wanted to be discharged to home and her boyfriend was in agreement. DISCHARGE PLANS: Albert will be discharged to home with a prescription for hydrocodone 5 mg 1-2 tablets p.o. q.4-6 hours p.r.n. pain, dispense 50 tablets with no refills. We are going to have her resume all her chronic medications including the aspirin. She is welcomed to walk up and down stairs and perform her activities of daily living. She should not lift over 25 pounds or do any heavy pushing, pulling, or lifting. She is not working currently and should not return to work currently. She can follow up in my office in 7 to 10 days for her surgical followup. I have reviewed this with Albert and her . They have expressed understanding and agreed with the above plan. Rick Carrillo MD Electronically Signed By: RICK CARRILLO MD 06/21/17 0857 PATIENT NAME: ALBERT GARCIA DISCHARGE SUMMARY DATE OF : 51 REPORT #: [id number] PHYSICIAN: RICK CARRILLO MD PCP: ABIOLA SANTANA REPORT IS CONFIDENTIAL AND NOT TO BE RELEASED WITHOUT AUTHORIZATION [facility] [address] [place], [place] [address] Signed ALB/MODL /[id number] cc: MUMTAZ Rolon Copies: ABIOLA SANTANA ~ Electronically Signed By: RICK CARRILLO MD 06/21/17 0857 PATIENT NAME: ALBERT GARCIA DISCHARGE SUMMARY DATE OF : 51 REPORT #: [id number] PHYSICIAN: RICK CARRILLO MD PCP: ABIOLA SANTANA REPORT IS CONFIDENTIAL AND NOT TO BE RELEASED WITHOUT AUTHORIZATION
== END 2017-06-20 12:50 | disposition home or self-care (01) ==
LOC: ED 09:12 → MS 09:13 → ED 12:35 → MS 06-20 12:50
PROVIDERS: ADMIT Colon & Rectal Surgery
PROC: 0DTJ4ZZ Resection of Appendix, Percutaneous Endoscopic Approach (ICD-10-PCS; principal; 2017-06-19 16:00)
DX: K35.3 Acute appendicitis with localized peritonitis (principal); J44.9 Chronic obstructive pulmonary disease, unspecified; K21.9 Gastro-esophageal reflux disease without esophagitis; I10 Essential (primary) hypertension; E11.9 Type 2 diabetes mellitus without complications; E66.9 Obesity, unspecified; K58.9 Irritable bowel syndrome, unspecified; Z95.5 Presence of coronary angioplasty implant and graft; Z79.4 Long term (current) use of insulin; I25.10 Atherosclerotic heart disease of native coronary artery without angina pectoris; E78.5 Hyperlipidemia, unspecified; L40.9 Psoriasis, unspecified; Z68.26 Body mass index [BMI] 26.0-26.9, adult; Z87.891 Personal history of nicotine dependence; Z88.2 Allergy status to sulfonamides; Z79.82 Long term (current) use of aspirin; Z79.51 Long term (current) use of inhaled steroids; Z79.52 Long term (current) use of systemic steroids; Z79.899 Other long term (current) drug therapy
CPT/HCPCS: 00840; 36415; 71046; 74177; 80053; 81001; 82150; 83690; 85025; 88304; 93005; 93010; 94762; 96374; 96375; 99285; G0378; J0330; J0696; J0735; J1100; J1170; J1644; J1885; J2250; J2405; J2704; J3475; J7030; J7120; Q9967

== ENCOUNTER 2018-08-10 15:16 | Emergency (ER) | payer MEDICAID, OTHER ==
[~2018-08-10] VITALS: Ht 162.6 cm; Wt 95.7 kg
--- OUTSIDE RECORDS SUMMARY | ~2018-08-10 | XMS | Encounter Summary ---
Demographics + + + | Address | [address] | | | [place] [address] | + + + | Home Phone | | + + + | Preferred Language | Unknown | + + + | Marital Status | Single | + + + | Taoist Affiliation | BAP | + + + | Race | White | + + + | Ethnic Group | Not or | + + + Author + + + | Author | [facility] | + + + | Organization | [facility] | + + + | Address | Unknown | + + + | Phone | Unavailable | + + + Support + + +---------+ + | Name | Relationship | Address | Phone | + + +---------+ + | Raad Steward | ECON | Unknown | | + + +---------+ + Care Team Providers + +------+ + | Care Hedis Registered Nurse Rn Name | Role | Phone | + +------+ + | Moni Erwin MD | PCP | | + +------+ + Reason for Visit + + + | Reason | Comments | + + + | Follow-up visit | | + + + Office Visit - E/M Services (Routine) +--------+--------+ + + + + | Status | Reason | Specialty | Diagnoses / | Referred By | Referred To | | | | | Procedures | Contact | Contact | +--------+--------+ + + + + | Closed | | Orthopedics | Diagnoses | Remberto, | Sher | | | | | Lesion | [place], | MD Anna | | | | | proximal | Eastern | [address] | | | | | Humerus | [facility] | [facility] | | | | | | & [address] | [address] | | | | | | [address] | [place], [place] | | | | | | Jade Castaneda | [address] | | | | | | [place], | Phone: | | | | | | [place] [address] | [phone] | | | | | | Phone: | Fax: | | | | | | [phone] | [phone] | | | | | | Fax: | | | | | | | [phone] | | +--------+--------+ + + + + Encounter Details +--------+---------+ + + + | Date | Type | Department | Care Team | Description | +--------+---------+ + + + | 10/04/ | Office | Orthopaedics at | Anna Olivarez, | Gurvinder (Primary | | 2010 | Visit | [facility] [address] | [address] | Dx) | | | | [facility] [address] | [facility] [address] | | | | | Mailcode: PV430 | [place], [place] | | | | | [facility] | [address] | | | | | [place], [place] | [phone] | | | | | [address] | | | | | | [phone] | | | +--------+---------+ + + + Social History + +-------+ [...] + + documented as of this encounter Last Filed Vital Signs + + + + + | Vital Sign | Reading | Time Taken | Comments | + + + + + | Blood Pressure | - | - | | + + + + + | Pulse | - | - | | + + + + + | Temperature | 36.6 C (97.9 F) | 10/04/2010 2:59 PM | | | | | PDT | | + + + + + | Respiratory Rate | - | - | | + + + + + | Oxygen Saturation | - | - | | + + + + + | Inhaled Oxygen | - | - | | | Concentration | | | | + + + + + | Weight | 95.3 kg (210 lb) | 10/04/2010 2:59 PM | | | | | PDT | | + + + + + | Height | 162.6 cm (5' 4") | 10/04/2010 2:59 PM | | | | | PDT | | + + + + + | Body Mass Index | 36.05 | 10/04/2010 2:59 PM | | | | | PDT | | + + + + + documented in this encounter Progress Notes Anna Olivarez MD - 10/04/2010 5:11 PM PDTFormatting of this note might be different fr om the original. Dx: enchondroma L prox humerus HPI: 55 y.o. F here for f/u enchondroma L proximal humerus. No pain in shoulder currently. No issues with shoulder. Able to do all activities. Past Medical History Diagnosis Date High cholesterol Diabetes COPD (chronic obstructive pulmonary disease) Anxiety Heart attack 2002 Hypothyroid Rheum arth Psoriasis Past Surgical History Procedure Date Stent placement 2004 Gallbladder surgery 1997 Tubal ligation 1975 Colonoscopy 2007 Upper gi surgery Current Medication List Name Sig ASPIRIN 81 MG TAB Take 81 mg by mouth once daily. DOCUSATE SODIUM 100 MG CAP Take 100 mg by mouth two times daily. ERGOCALCIFEROL (VITAMIN D2) 50,000 UNIT TAB Take 50,000 Units by mouth. GLYBURIDE 2.5 MG TAB Take 2.5 mg by mouth two times daily. HYDROCORTISONE 2.5 % TOPICAL CREAM by Topical route two times daily. Apply a thin film to c lean, dry skin and rub in gently. HYDROPHILIC OINTMENT by Topical route. IPRATROPIUM BROMIDE INHL Inhale. LEVOTHYROXINE 150 MCG TAB Take 150 mcg by mouth once daily. NITROGLYCERIN 0.[address] 0.3 mg under tongue every five minutes as needed. Do not crush. Place under tongue and allow to dissolve. Administer every 5 minutes for a m aximum of 3 doses in 15 minutes. OMEPRAZOLE 20 MG CAP, DELAYED RELEASE Take 20 mg by mouth once daily. PIOGLITAZONE 15 MG TAB Take 15 mg by mouth once daily. SALSALATE ORAL Take by mouth. PE: Ht 162.6 cm (5' 4")( < 3 %ile), Wt 95.255 kg (210 lbs)( < 3 %ile), Temperature 36.6 C (97 .9 F), Temperature source Oral, BMI 36.05 kg/(m^2). Gen: NAD WDWN overweight LUE: AROM FE 170/ER 70/IR T10. SILT M/R/U/A. Motor 5/ D/B/T/WE/Int. 5/5 RTC muscles. N o ttp biceps tendon. No ttp acromion, clavicle, ac jt. 2+rad. No axillary lymphadenopathy . Imaging: Reviewed by myself. XR today compared to 03/2010 and 01/2010: lesion with calcific stipping in L humeral head, s table compared to 2 previous films. No soft tissue mass. No periosteal reaction. No corti lary expansion or thinning. A/P: enchondroma L prox humerus, stable -f/u 6 mo w/ new XR L shoulder (AP, ax, scapular-Y) -pt will likely need 3 more visits total over the course of 1.5 years to ensure that this l esion is stable. documented in this e ncounter Plan of Treatment Not on filedocumented as of this encounter Visit Diagnoses + + | Diagnosis | + + | Enchondroma - Primary Benign neoplasm of bone and articular cartilage, site | | unspecified | + + documented in this encounter
--- OUTSIDE RECORDS SUMMARY | ~2018-08-10 | XMS | Clinical Summary ---
Demographics + + + | Address | [address] | | | [place] [address] | + + + | Home Phone | | + + + | Preferred Language | Unknown | + + + | Marital Status | Unknown | + + + | Advent Affiliation | Unknown | + + + | Race | Unknown | + + + | Ethnic Group | Unknown | + + + Author + + + | Author | [facility] | + + + | Organization | [facility] | + + + | Address [...] Team Providers + +------+ + | Care Food Beverage Attendant Name | Role | Phone | + +------+ + | Padmini Lo MD | PP | | + +------+ + Allergies + + + + + + | Active Allergy | Reactions | Severity | Noted | Comments | | | | | Date | | + + + + + + | Amoxicillin-Pot | Other (See Comments) | Medium | | | | Clavulanate | | | | | + + + + + + | Bee Venom | Anaphylaxis | High | | | + + + + + + | Lactose Intolerance | Diarrhea | Low | /20 | | | (Gi) | | | 18 | | + + + + + + | Other-Environmental | Other (See Comments) | Medium | | SDS: Sodium | | | | | | dodecyl sulfate | + + + + + + | Sulfa Antibiotics | Nausea Only | Low | 20 | | | | | | 14 [...] + +-------+---------+------+------+-------+ | insulin glargine | Inject 72 Units into | | | | | [...] + + +-------+---------+------+------+-------+ | escitalopram | Take 20 mg by mouth | [...] | | | | | DISPENSED | Pain (rarely take). | | | | | | | [...] | | | + + +-------+---------+------+------+-------+ | cholecalciferol | Take 5,000 Units by | | | | | Activ | | 5000 units capsule | mouth daily. | | | | | e | + + +-------+---------+------+------+-------+ | rifaximin | Take 550 mg by mouth | | | | | Activ | | (XIFAXAN) 550 MG | 3 (three) times | | | | | e | | TABS | daily. | | | | | | + + +-------+---------+------+------+-------+ | clobetasol | Apply topically 2 | | | | | Activ | | propionate | (two) times daily. | | | | | e | | (TEMOVATE) 0.05 % | | | | | | | | ointment | | | | | | | + + +-------+---------+------+------+-------+ | betamethasone | Apply topically 2 | | | | | Activ | | valerate (VALISONE) | (two) times daily. | | | | | e | | 0.1 % lotion | | | | | | | + + +-------+---------+------+------+-------+ Active Problems + + + | Problem | Noted Date | + + + | Chronic obstructive pulmonary disease (HCC) | 11/11/2017 | + + + | Psoriasis | 11/11/2017 | + + + | Hypothyroidism | 11/11/2017 | + + + | CAD (coronary [...] Plan: Hx HH/GERD, IBS. | + + + + + | Status post insertion of drug-eluting stent into left anterior | 12/23/2004 | | descending (LAD) artery for coronary artery disease | | + + + + + | Overview: 2.75x18 mm Cypher DARY mid LAD | + + + +---+ | Obstructive sleep apnea syndrome | | + +---+ + + | Overview: not on CPAP (could not tolerate) | + + Family History + + +------+ + | Medical History | Relation | Name | Comments | + + +------+ + | Coronary art dis | Brother | | CABG | + + +------+ + | Diabetes type II | Brother | | | + + +------+ + | High cholesterol | Brother | | | + + +------+ + | Hypertension | Brother | | | + + +------+ + | Alcohol abuse | Brother | | | + + +------+ + | Coronary art dis | Brother | | | + + +------+ + | Diabetes type II | Brother | | | + + +------+ + | High cholesterol | Brother | | | + + +------+ + | Psoriasis | Brother | | | + + +------+ + | Cirrhosis | Father | | | + + +------+ + | Coronary art dis | Father | | CABG | + + +------+ + | Coronary art dis | Mother | | | + + +------+ + | Hypertension | Mother | | | + + +------+ + + +------+ + + | Relation | Name | Status | Comments | + +------+ + + | Brother | | Alive | | + +------+ + + | Brother | | | OH | | | | (Age | | | | | 60) | | + +------+ + + | Daughter | | Alive | | + +------+ + + | Father | | | cirrhosis | | | | (Age | | | | | 72) | | + +------+ + + | Mother | | | MVA | | | | (Age | | | | | 54) | | + +------+ + + | Son | | Alive | | + +------+ + + Social [...] | No | 0 | 0.0 | quit drinking 05/2003, h/o alcoholism | | | Standard | | | [...] + + + | Blood Pressure | 126/62 | 11/09/2017 3:18 PM PDT | + + + + | Pulse | 82 | 11/09/2017 3:18 PM PDT | + + + + | Temperature | - | - | + + + + | Respiratory Rate | 16 | 11/09/2017 3:18 PM PDT | + + + + | Oxygen Saturation | 94% | 11/09/2017 3:18 PM PDT | + + + + | Inhaled Oxygen | - | - | | Concentration | | | + + + + | Weight | 98.4 kg (216 lb 14.4 | 11/09/2017 3:18 PM PDT | | | oz) | | + + + + | Height | 162.6 cm (5' 4") | 11/09/2017 3:18 PM PDT | + + + + | Body Mass Index | 37.23 | 11/09/2017 3:18 PM PDT | + + + + [...] + + + + | Vaccine: Zoster (1 | | | | | of 2) | 4 | | | + + + + + | Lung Cancer | | | | | Screening | 9 | | | + + + + + | DEXA SCAN SCREENING | | | | | | 9 | | | + + + + + | Vaccine: | | | | | Pneumococcal 65+ | 9 | | | | Low/Medium Risk (1 | | | | | of 2 - PCV13) | | | | + + + + + | Vaccine: Influenza | | | | | (Season Ended) | 9 | | | + + + + + Results Not on filefrom Last 3 Months Insurance + +--------+ +------+-------+ + | Payer | Benefi | Subscriber | Type | Phone | Address | | | t Plan | ID | | | | | | / | | | | | | | Group | | | | | + +--------+ +------+-------+ + | MEDICAID | [employer] | [id number] | | | [address] | | | N | | | | [place], [place] | | | [place] | | | | [address] | | | EXCAVATING CONTRACTOR | | | | | + +--------+ +------+-------+ + | [facility] | YELLOW | [id number] | | | | | PLANS | [place] | | | | | + +--------+ +------+-------+ + + +--------+ +--------+ + + | Guarantor Name | Accoun | Relation to | Date | Phone | Billing Address | | | t Type | Patient | of | | | | | | | | | | + +--------+ +--------+ + + | ALBERT CARCAMO | Person | Self [birth year] Home: | [address] | | | [place] | | [phone] | [phone] | [place] | | | [place]ah | | | [phone] | [address] | + +--------+ +--------+ + +
--- OUTSIDE RECORDS SUMMARY | ~2018-08-10 | XMS | Encounter Summary ---
Demographics + + + | Address | [address] | | | [place] [address] | + + + | Home Phone | | + + + | Preferred Language | Unknown | + + + | Marital Status | Single | + + + | Jewish Affiliation | BAP | + + + | Race | White | + + + | Ethnic Group | Not or | + + + Author + + + | Author | [facility] | + + + | Organization | [facility] | + + + | Address | Unknown | + + + | Phone | Unavailable | + + + Support + + +---------+ + | Name | Relationship | Address | Phone | + + +---------+ + | Raad Steward | ECON | Unknown | | + + +---------+ + Care Team Providers + +------+ + | Care Mechanical Manufacturing Technician Name | Role | Phone | + +------+ + | Elaina Emerson HELP DESK ADMINISTRATOR | PCP | Unavailable | + +------+ + Encounter Details +--------+ + + + + | Date | Type | Department | Care Team | Description | +--------+ + + + + | 04/05/ | Hospital | Diagnostic | | | | 2010 | Encounter | Radiology at [facility] | | | | | | [address] | | | | | | [facility] | | | | | | Mailcode: PV450 | | | | | | [place] | | | | | | [place], [place] | | | | | | [address] | | | | | | [phone] | | | +--------+ + + + [...] | | | | | | medullary | | | | | | calcification. There | | | | | | isno endosteal | | | | | | scalloping or periosteal | | | | | | | | | | | | reaction. Additionall | | | | | | y, nosoft tissue | | | | | | component or cortical | | | | | | destruction is | | | | | | seen. The bones | | | | | | areotherwise intact with | | | | | | no fracture or focal | | | | | | destruction. Thegleno | | | | | | humeral joint is | | | | | | maintained. There are | | | | | | no soft | | | | | [...] STINSON, | | | | | | MYvette STATUS FINAL / | | | | | | TAMICA STINSON | | | | + + + + + + + + | Specimen | + + | | + + + +---------+ + + | Performing | Address | City/State/Zipcode | Phone Number | | Organization | | | | + +---------+ + + | [facility] DEPARTMENT OF | | | | | RADIOLOGY | | | | + +---------+ + + documented in this encounter Visit Diagnoses + + | Diagnosis | + + | Shoulder pain Pain in joint, shoulder region | + + documented in this encounter"
--- OUTSIDE RECORDS SUMMARY | ~2018-08-10 | XMS | Encounter Summary ---
Demographics + + + | Address | [address] | | | [place] [address] | + + + | Home Phone | | + + + | Preferred Language | Unknown | + + + | Marital Status | Single | + + + | Baptist Affiliation | BAP | + + + | Race | White | + + + | Ethnic Group | Not or | + + + Author + + + | Author | [facility] | + + + | Organization | [facility] | + + + | Address | Unknown | + + + | Phone | Unavailable | + + + Support + + +---------+ + | Name | Relationship | Address | Phone | + + +---------+ + | Raad Steward | ECON | Unknown | | + + +---------+ + Care Team Providers + +------+ + | Care Acid Tank Liner Name | Role | Phone | + +------+ + | Elaina Emerson BRIM SHAPER | PCP | Unavailable | + +------+ + Encounter Details +--------+ + + + + | Date | Type | Department | Care Team | Description | +--------+ + + + + | 04/05/ | Clinical Trials Data Coordinator | Orthopaedics at | Anna Olivarez, | Shoulder pain | | 2010 | | [facility] [address] | [address] | (Primary Dx) | | | | [facility] | [facility] [address] | | | | | Mailcode: PV430 | [place], [place] | | | | | [facility] | [address] | | | | | [facility] [place] | [phone] | | | | | [address] | | | | | | [phone] | | | +--------+ + + + [...]
--- OUTSIDE RECORDS SUMMARY | ~2018-08-10 | XMS | Encounter Summary ---
Demographics + + + | Address | [address] | | | [place] [address] | + + + | Home Phone | | + + + | Preferred Language | Unknown | + + + | Marital Status | Single | + + + | Episcopal Affiliation | BAP | + + + | Race | White | + + + | Ethnic Group | Not or | + + + Author + + + | Author | [facility] | + + + | Organization | [facility] | + + + | Address | Unknown | + + + | Phone | Unavailable | + + + Support + + +---------+ + | Name | Relationship | Address | Phone | + + +---------+ + | Raad Steward | ECON | Unknown | | + + +---------+ + Care Team Providers + +------+ + | Care Cashier Or Checker Stock Clerk Name | Role | Phone | + +------+ + | Moni Erwin MD | PCP | | + +------+ + Encounter Details +--------+ + + + + | Date | Type | Department | Care Team | Description | +--------+ + + + + | 04/21/ | Manager Requirements | Orthopaedics at | Anna Olivarez, | Enchondroma (Primary | | 2011 | | [facility] [address] | [address] | Dx) | | | | [facility] | [facility] | | | | | Mailcode: PV430 | [place], [place] | | | | | [facility] | [address] | | | | | [facility] [place] | [phone] | | | | | [address] | | | | | | [phone] | | | +--------+ + + + [...]
--- OUTSIDE RECORDS SUMMARY | ~2018-08-10 | XMS | Encounter Summary ---
Demographics + + + | Address | [address] | | | [place] [address] | + + + | Home Phone | | + + + | Preferred Language | Unknown | + + + | Marital Status | Single | + + + | Scientology Affiliation | BAP | + + + | Race | White | + + + | Ethnic Group | Not or | + + + Author + + + | Author | [facility] | + + + | Organization | [facility] | + + + | Address | Unknown | + + + | Phone | Unavailable | + + + Support + + +---------+ + | Name | Relationship | Address | Phone | + + +---------+ + | Raad Steward | ECON | Unknown | | + + +---------+ + Care Team Providers + +------+ + | Care Math Professor Name | Role | Phone | + +------+ + | Elaina Emerson ELECTRONIC COMPONENTS ASSEMBLER | PCP | Unavailable | + +------+ + Encounter Details +--------+ + + + + | Date | Type | Department | Care Team | Description | +--------+ + + + + | 09/29/ | Steward/Stewardess Club Car | Orthopaedics at | Anna Olivarez, | Gurvinder (Primary | | 2010 | | [facility] [address] | [address] | Dx) | | | | [facility] | [facility] | | | | | Mailcode: PV430 | [place], [place] | | | | | [facility] | [address] | | | | | [place], [place] | [phone] | | | | | [address] | | | | | | [phone] | | | +--------+ + + + [...] | | | | | | COMPARISON: 1/24/11. | | | | | | HISTORY: [...] | | | | | inappearance and | | | | | | size. Measurements on | | | | | | the axillary view are | | | | | | 1.5 x 1.9cm, which is | | | | | | unchanged. No new | | | | | | lytic component, | | | | | | endostealscalloping, | | | | | | cortical breakthrough or | | | | | | periosteal new bone | | | | | | formation | | | | | | isobserved. The | | | | | | remaining osseous | | | | | | structures are | | | | | | intact. There is | | | | | | ahealed mid left | | | | | | clavicular | | | | | | fracture. No acute | | | | | | fracture is | | | | | | observed.Glenohumeral | | | | | | alignment is | | | | | | normal. No soft | | | | | | tissue abnormality | | | | | | isdetected. IMPRESSION: | | | | | | Stable appearance of a | | | | | | low-grade chondroid | | | | | | lesion within the | | | | | | proximalleft humerus. | | | | | | Attending Radiologists: | | | | | | Rosa Capps, | | | | | | M.AdiAuthor: Rosa | | | | | | [...] | | + +---------+ + + | [facility] DEPARTMENT OF | | | | | RADIOLOGY | | | | + +---------+ + + documented in this encounter Visit Diagnoses + + | Diagnosis | + + | Enchondroma - Primary Benign neoplasm of bone and articular cartilage, site | | unspecified | + + documented in this encounter"
--- OUTSIDE RECORDS SUMMARY | ~2018-08-10 | XMS | Clinical Summary ---
Demographics + + + | Address | [address] | | | [place] [address] | + + + | Home Phone | | + + + | Preferred Language | Unknown | + + + | Marital Status | Unknown | + + + | Hindu Affiliation | Unknown | + + + | Race | Unknown | + + + | Ethnic Group | Unknown | + + + Author + + + | Author | [facility] | + + + | Organization | [facility] | + + + | Address [...] Team Providers + +------+ + | Care Ux Design Lead Name | Role | Phone | + [...] + + | Brother | | | [place] | | | | (Age | | [...] +------+-------+ + | MEDICAID | [employer] | [id number] | | | [address] | | | N | | | | [place], [place] | | | [place] | | | | [address] | | | UNIT CONTROLLER | | | | | + +--------+ +------+-------+ + | [facility] | YELLOW | [id number] | | | | | PLANS | [...] | Self | [birth year] | Home: | [address] | | | [place] | | [phone] | [phone] | [place] | | | [place] | | | [address] | [address] | + +--------+ +--------+ + +
--- OUTSIDE RECORDS SUMMARY | ~2018-08-10 | XMS | Encounter Summary ---
Demographics + + + | Address | [address] | | | [place] [address] | + + + | Home Phone | | + + + | Preferred Language | Unknown | + + + | Marital Status | Single | + + + | Moravian Affiliation | BAP | + + + | Race | White | + + + | Ethnic Group | Not or | + + + Author + + + | Author | [facility] | + + + | Organization | [facility] | + + + | Address | Unknown | + + + | Phone | Unavailable | + + + Support + + +---------+ + | Name | Relationship | Address | Phone | + + +---------+ + | Raad Steward | ECON | Unknown | | + + +---------+ + Care Team Providers + +------+ + | Care Sound Printer Name | Role | Phone | + +------+ + | Elaina Emerson SUPERVISOR FEED MILL | PCP | Unavailable | + +------+ + Encounter Details +--------+ + + + + | Date | Type | Department | Care Team | Description | +--------+ + + + + | 09/29/ | Payroll Accounting Specialist | Orthopaedics at | Anna Olivarez, | Gurvinder (Primary | | 2010 | | [facility] [address] | [address] | Dx) | | | | [facility] | [facility] | | | | | Mailcode: PV430 | [place], [place] | | | | | [facility] | [address] | | | | | [place], [place] | [phone] | | | | | [address] | | | | | | [phone] | | | +--------+ + + + [...] | | + +---------+ + + | [facility] DEPARTMENT OF | | | | | RADIOLOGY | | | | + +---------+ + + documented in this encounter Visit Diagnoses + + | Diagnosis | + + | Enchondroma - Primary Benign neoplasm of bone and articular cartilage, site | | unspecified | + + documented in this encounter"
--- OUTSIDE RECORDS SUMMARY | ~2018-08-10 | XMS | Encounter Summary ---
Demographics + + + | Address | [address] | | | [place] [address] | + + + | Home Phone | | + + + | Preferred Language | Unknown | + + + | Marital Status | Single | + + + | Advent Affiliation | BAP | + + + | Race | White | + + + | Ethnic Group | Not or | + + + Author + + + | Author | [facility] | + + + | Organization | [facility] | + + + | Address | Unknown | + + + | Phone | Unavailable | + + + Support + + +---------+ + | Name | Relationship | Address | Phone | + + +---------+ + | Raad Steward | ECON | Unknown | | + + +---------+ + Care Team Providers + +------+ + | Care Molding Line Assistant Name | Role | Phone | + +------+ + | Moni Erwin MD | PCP | | + +------+ + Encounter Details +--------+ + + + + | Date | Type | Department | Care Team | Description | +--------+ + + + + | 10/04/ | Hospital | Diagnostic | | | | 2010 | Encounter | Radiology at [facility] | | | | | | [address] [facility] | | | | | | [facility] | | | | | | Mailcode: PV450 | | | | | | [address] | | | | | | [place], [place] | | | | | | [address] | | | | | | [phone] | | | +--------+ + + + [...] Capps, | | | | | | ChitoAuthor: [...]
--- OUTSIDE RECORDS SUMMARY | ~2018-08-10 | XMS | Encounter Summary ---
Demographics + + + | Address | [address] | | | [place] [address] | + + + | Home Phone | | + + + | Preferred Language | Unknown | + + + | Marital Status | Single | + + + | Quaker Affiliation | BAP | + + + | Race | White | + + + | Ethnic Group | Not or | + + + Author + + + | Author | [facility] | + + + | Organization | [facility] | + + + | Address | Unknown | + + + | Phone | Unavailable | + + + Support + + +---------+ + | Name | Relationship | Address | Phone | + + +---------+ + | Raad Steward | ECON | Unknown | | + + +---------+ + Care Team Providers + +------+ + | Care Wind Turbine Mechanical Engineer Name | Role | Phone | + +------+ + | Elaina Emerson PAINTER SPRAY | PCP | Unavailable | + +------+ + Encounter Details +--------+ + + + + | Date | Type | Department | Care Team | Description | +--------+ + + + + | 04/05/ | Spindle Maker | Orthopaedics at | Anna Olivarez, | Shoulder pain | | 2010 | | [facility] [address] | [address] | (Primary Dx) | | | | [facility] | [address] | | | | | Mailcode: PV430 | [place], [place] | | | | | [facility] | [address] | | | | | [facility] [place] | [phone] | | | | | [address] | | | | | | [phone] | | | +--------+ + + + [...]
--- OUTSIDE RECORDS SUMMARY | ~2018-08-10 | XMS | Encounter Summary ---
Demographics + + + | Address | [address] | | | [place] [address] | + + + | Home Phone | | + + + | Preferred Language | Unknown | + + + | Marital Status | Single | + + + | Sabianism Affiliation | BAP | + + + | Race | White | + + + | Ethnic Group | Not or | + + + Author + + + | Author | [facility] | + + + | Organization | 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 | | | | | Mailcode: PV430 | [place], [place] | | | | | [facility] | [address] | | | | | [facility] [place] | [phone] | | | | | [address] | | | | | | [phone] | | | +--------+ + + + [...]
--- OUTSIDE RECORDS SUMMARY | ~2018-08-10 | XMS | Encounter Summary ---
Demographics + + + | Address | [address] | | | [place] [address] | + + + | Home Phone | | + + + | Preferred Language | Unknown | + + + | Marital Status | Single | + + + | Nondenominational Affiliation | BAP | + + + | Race | White | + + + | Ethnic Group | Not or | + + + Author + + + | Author | [facility] | + + + | Organization | [facility] | + + + | Address | Unknown | + + + | Phone | Unavailable | + + + Support + + +---------+ + | Name | Relationship | Address | Phone | + + +---------+ + | Raad Steward | ECON | Unknown | | + + +---------+ + Care Team Providers + +------+ + | Care Deli Cutter Slicer Name | Role | Phone | + +------+ + | Elaina Emerson QUALITY CONTROL AUDITOR | PCP | Unavailable | + +------+ [...] [address] | | | | | | [facility] | | | | | | Mailcode: PV450 | | | | | | [place] | | | | | | [place], [place] | | | | | | [address] | | | | | | [phone] | | | +--------+ + + + [...] | | + +---------+ + + | [facility] DEPARTMENT OF | | | | | RADIOLOGY | | | | + +---------+ + + documented in this encounter Visit Diagnoses + + | Diagnosis | + + | Shoulder pain Pain in joint, shoulder region | + + documented in this encounter"
--- OUTSIDE RECORDS SUMMARY | ~2018-08-10 | XMS | Clinical Summary ---
Demographics + + + | Address | [address] | | | [place] [address] | + + + | Home Phone | | + + + | Preferred Language | Unknown | + + + | Marital Status | Legally | + + + | Sikhism Affiliation | Unknown | + + + | Race | Unknown | + + + | Ethnic Group | Unknown | + + + Author + + + | Author | [facility] | | | and [place] | + + + | Organization | [facility] | | | and [place] | + + + | Address | Unknown | + + + | Phone | Unavailable | + + + Care Team Providers + +------+ + | Care Ornamental Metal Erector Name | Role | Phone | + [...] | | + + + +--------+ + Medications + + + +---------+------+------+-------+ | Medication | Sig | Dispensed | Refills | Star | End | Statu | | | | | | t | Date | s | | | | | | Date | | | + + + +---------+------+------+-------+ | ergocalciferol | Take 50,000 Units by | | 0 | 09/1 | | [...] | | + + + +---------+------+------+-------+ | simvastatin | Take 20 mg by mouth | | 0 | 09/1 | | Activ | | (ZOCOR) 20 mg tablet | every evening. | | | 420 | | e | | | | | | 12 | | | + + + +---------+------+------+-------+ | | Take 1 tablet by | | 0 | 09/1 | | Activ | | amoxicillin-clavulan | mouth twice daily | | | 420 | | e | | ate (AUGMENTIN) | with meals until all | | | 12 | | | | 875-125 mg per | taken for infection | | | | | | | tablet | | | | | | | + + + +---------+------+------+-------+ | aspirin 325 mg EC | Take 325 mg by mouth | | 0 | 09/1 | | Activ | | tablet | Daily. | | | 4/20 | | e | | | | | | 12 | | | + + + +---------+------+------+-------+ | glucose blood | Use as directed | | 0 | 09/1 | | Activ | | test strips (CHERRY | | | | 4/20 | | e | | CONTOUR TEST) strip | | | | 12 | | | + + + +---------+------+------+-------+ | glyBURIDE | Take 2.5 mg by mouth | | 0 | 09/1 | | Activ | | (DIABETA) 2.5 mg | 2 times daily. | | | 4/20 | | e | | tablet | | | | 12 | | | + + + +---------+------+------+-------+ | hydrocortisone 2.5 | Apply a thin layer | | 0 | 09/1 | | Activ | | % ointment | to the affected area | | | 4/20 | | e | | | two times daily | | | 12 | | | + + + +---------+------+------+-------+ | Ipratropium | AERS Inhale 1 to 2 | | 0 | 09/1 | | Activ | | [place] HFA | puffs every 6 hours | | | 20 | | e | | (ATROVENT HFA IN) | as needed for | | | 12 | | | | | shortness of breath | | | | | | + + + +---------+------+------+-------+ | levothyroxine | Take 1 tablet by | | 0 | 09/1 | | Activ | | (SYNTHROID, | [...] | sublingually every 5 | | | 06/30 | | e | | SL tablet [...] mg by mouth | | 0 | 11/11 | | Activ | | (PRILOSEC) 20 mg | 2 times daily. | | | 06/30 | | e | | capsule | | | | 12 | | | + + + +---------+------+------+-------+ | Pioglitazone HCl | TABS daily | | 0 | 11/11 | | Activ | | (ACTOS PO) | | | | 420 | | e | | | | | | 12 | | | + + + +---------+------+------+-------+ | | Take 5-500 mg by | | 0 | 11/11 | | Activ | | HYDROcodone-acetamin | mouth as needed. | | | 4/20 | | e | | ophen (MIAGILBERT) | | | | 12 | | [...] Body Mass Index | 33.95 | 04/09/2010 0000 PST | + + + + Plan of [...] Last 3 Months Insurance + +--------+ +--------+ +---------+--------+ | Payer | Benefi | Subscriber | Effect | Phone | Address | Type | | | t Plan | ID | radha | | | | | | / | | Dates | | | | | | Group | | | | | | + +--------+ +--------+ +---------+--------+ | MEDICARE | MEDICA | [id number] | 05/12/19 | [phone] | | Medica | | | RE | | 19-Pre | 5 | | re | | | PART A | | sent | | | | | | AND B | | | | | | + +--------+ +--------+ +---------+--------+ | [facility] | IHS | [id number] | 01/04/ | | | Indemn | [...] +--------+ +--------+ + + | Albert Carcamo | Person | Self | [birth year] | [address] | | | al/Fam | | 1956 | [phone] | [place] [address] | | | beulah | | | 9 (Home) | | + +--------+ +--------+ + +
--- OUTSIDE RECORDS SUMMARY | ~2018-08-10 | XMS | Encounter Summary ---
Demographics + + + | Address | [address] | | | [place] [address] | + + + | Home Phone | | + + + | Preferred Language | Unknown | + + + | Marital Status | Single | + + + | Yazidi Affiliation | BAP | + + + | Race | White | + + + | Ethnic Group | Not or | + + + Author + + + | Author | [facility] | + + + | Organization | [facility] | + + + | Address | Unknown | + + + | Phone | Unavailable | + + + Support + + +---------+ + | Name | Relationship | Address | Phone | + + +---------+ + | Raad Steward | ECON | Unknown | | + + +---------+ + Care Team Providers + +------+ + | Care Hub Cutter Name | Role | Phone | + +------+ + | Moni Erwin MD | PCP | | + +------+ + Encounter Details +--------+ + + + + | Date | Type | Department | Care Team | Description | +--------+ + + + + | 10/04/ | Hospital | Diagnostic | | | | 2010 | Encounter | Radiology at [facility] | | | | | | [address] | | | | | | [facility] | | | | | | Mailcode: PV450 | | | | | | [address] | | | | | | [place], [place] | | | | | | [address] | | | | | | [phone] | | | +--------+ + + + [...]
--- OUTSIDE RECORDS SUMMARY | ~2018-08-10 | XMS | Encounter Summary ---
Demographics + + + | Address | [address] | | | [place] [address] | + + + | Home Phone | | + + + | Preferred Language | Unknown | + + + | Marital Status | Single | + + + | Muslim Affiliation | BAP | + + + | Race | White | + + + | Ethnic Group | Not or | + + + Author + + + | Author | [facility] | + + + | Organization | [facility] | + + + | Address | Unknown | + + + | Phone | Unavailable | + + + Support + + +---------+ + | Name | Relationship | Address | Phone | + + +---------+ + | Raad Steward | ECON | Unknown | | + + +---------+ + Care Team Providers + +------+ + | Care Batter Mixer Helper Name | Role | Phone | + +------+ + | Elaina mEerson GLAZE MAKER | PCP | Unavailable | + +------+ + Reason for Visit [...] | | proximal | Eastern | [address] | | | | | Humerus | [facility] | [address] | | | | | | & [address] | [address] | | | | | | [address] | [place], [place] | | | | | | [address] | [address] | | | | | | [place], | Phone: | | | | | | [place] [address] | [phone] | | | | | | Phone: | Fax: | | | | | | [phone] | [phone] | | | | | | Fax: | | | | | | | [phone] | | +--------+--------+ + + + + Encounter Details +--------+---------+ + + + | Date | Type | Department | Care Team | Description | +--------+---------+ + + + | 04/05/ | Office | Orthopaedics at | Anna Olivarez, | [place]re[place] (Primary | | 2010 | Visit | [facility] [address] | [address] | Dx) | | | | [facility] | [address] | | | | | Mailcode: PV430 | [place], [place] | | | | | [facility] | [address] | | | | | [place], [place] | [phone] | | | | | [address] | | | | | | [phone] | | | +--------+---------+ + + + [...] shoulder pain. Has a h/o adhesive capsulitis Kim garcia 2 yrs ago, resolved with PT/OT. [...]
--- OUTSIDE RECORDS SUMMARY | ~2018-08-10 | XMS | Clinical Summary ---
Demographics + + + | Address | [address] | | | [place] [address] | + + + | Home Phone | | + + + | Preferred Language | Unknown | + + + | Marital Status | Single | + + + | Anglican Affiliation | BAP | + + + [...] Team Providers + +------+ + | Care Information Systems Administrator Name | Role | Phone | + +------+ + PP | Unavailable | + +------+ + Source Comments AMELIA is fully live on both EpicCare Ambulatory and [facility] InPatient.[facility] Allergies + + + + + [...] + + + + + | Pneumococcal (Adult) | | | | | (1 of 2 - PCV13) | 9 | | | + + + + + | Influenza (Flu) | | | | | vaccination (Season | 9 | | | | Ended) | | | | + + + [...] | | | + +--------+ +--------+-------+---------+--------+ | [facility] | [facility] | xxxxxxxxxx | Effect | | | [...] Person | Self | [birth year] | | [address] | | | al/Fam | | [birth year] | [phone] | [place] [address] | | | beulah | | | 6 (Home) | | + +--------+ +--------+ + + | Albert Carcamo | Agency | Self | [birth year] | | [address] | | | | | 1956 | [phone] | [place] [address] | | | | | | 6 (Home) | | + +--------+ +--------+ + +
--- OUTSIDE RECORDS SUMMARY | ~2018-08-10 | XMS | Clinical Summary ---
Demographics + + + | Address | [address] | | | [place] [address] | + + + | Home Phone | | + + + | Preferred Language | Unknown | + + + | Marital Status | Legally | + + + | Restoration Affiliation | Unknown | + + + | Race | Unknown | + + + | Ethnic Group | Unknown | + + + Author + + + | Author | [facility] | | | and [place] | + + + | Organization | [facility] | | | and [place] | + + + | Address | Unknown | + + + | Phone | Unavailable | + + + Care Team Providers + +------+ + | Care Registered Nurse Obstetrics Name | Role | Phone | + [...] | 09/1 | | Activ | | [place] [facility] | puffs every 6 hours | [...] +--------+ +---------+--------+ | MEDICARE | MEDICA | [id number] | 05/12/19 | [phone] | | Medica | | | RE | | 19-Pre | 5 | | re | | | PART A | | sent | | | | | | AND B | | | | | | + +--------+ +--------+ +---------+--------+ | [facility] | IHS | [id number] | 01/04/ | | | Indemn | [...] Person | Self | [birth year] | | [address] | | | al/Fam | | 1956 | [phone] | [place] [address] | | | beulah | | | 9 (Home) | | + +--------+ +--------+ + +
--- OUTSIDE RECORDS SUMMARY | ~2018-08-10 | XMS | Encounter Summary ---
Demographics + + + | Address | [address] | | | [place] [address] | + + + | Home Phone | | + + + | Preferred Language | Unknown | + + + | Marital Status | Single | + + + | Jew Affiliation | BAP | + + + | Race | White | + + + | Ethnic Group | Not or | + + + Author + + + | Author | [facility] | + + + | Organization | [facility] | + + + | Address | Unknown | + + + | Phone | Unavailable | + + + Support + + +---------+ + | Name | Relationship | Address | Phone | + + +---------+ + | Raad Steward | ECON | Unknown | | + + +---------+ + Care Team Providers + +------+ + | Care Screw Machine Repairer Name | Role | Phone | + [...] | | | | | Humerus | [facility] | [facility] | | | | | | & [address] | [address] | | | | | | [address] | [place], [place] | | | | | | [address] | [address] | | | | | | [place], | Phone: | | | | | | [place] [address] | [phone] | | | | | | Phone: | Fax: | | | | | | [phone] | [phone] | | | | | | Fax: | | | | | | | [phone] | | +--------+--------+ + + + + Encounter Details +--------+---------+ + + + | Date | Type | Department | Care Team | Description | +--------+---------+ + + + | 10/04/ | Office | Orthopaedics at | Anna Olivarez, | Gurvinder (Primary | | 2010 | Visit | [facility] [address] | [address] | Dx) | | | | [facility] [address] | [facility] [address] | | | | | Mailcode: PV430 | [place], [place] | | | | | [facility]ilion | [address] | | | | | [place], [place] | [phone] | | | | | [address] | | | | | | [phone] | | | +--------+---------+ + + + [...]
--- OUTSIDE RECORDS SUMMARY | ~2018-08-10 | XMS | Encounter Summary ---
Demographics + + + | Address | [address] | | | [place] [address] | + + + | Home Phone [...] Author + + + | Author | [facility] | + + + | Organization | [facility] | + + + | Address | Unknown | + + + | Phone | Unavailable | + + + Support + + +---------+ + | Name | Relationship | Address | Phone | + + +---------+ + | Raad Steward | ECON | Unknown | | + + +---------+ + Care Team Providers + +------+ + | Care Tuber Machine Operator Name | Role | Phone | + +------+ + | Elaina Emerson INSEMINATION WORKER | PCP | Unavailable | + +------+ [...] | | | | | Humerus | [facility] | [address] | | | | | | & [address] | Rd | | | | | | [address] | [place], [place] | | | | | | [address] | [address] | | | | | | [place], | Phone: | | | | | | [place] [address] | [phone] | | | | | | Phone: | Fax: | | | | | | [phone] | [phone] | | | | | | Fax: | | | | | | | [phone] | | +--------+--------+ + + + + Encounter Details +--------+---------+ + + + | Date | Type | Department | Care Team | Description | +--------+---------+ + + + | 04/05/ | Office | Orthopaedics at | Anna Olivarez, | [place]reas (Primary | | 2010 | Visit | [facility] [address] | [address] | Dx) | | | | [facility] | [facility] [address] | | | | | Mailcode: PV430 | [place], [place] | | | | | [facility] | [address] | | | | | [place], [place] | [phone] | | | | | [address] | | | | | | [phone] | | | +--------+---------+ + + + [...]
--- OUTSIDE RECORDS SUMMARY | ~2018-08-10 | XMS | Clinical Summary ---
Demographics + + + | Address | [address] | | | [place] [address] | + + + | Home Phone | | + + + | Preferred Language | Unknown | + + + | Marital Status | Single | + + + | Orthodoxy Affiliation | BAP | + + + [...] Team Providers + +------+ + | Care Generation Engineering Technologist Name | Role | Phone | + +------+ + PP | Unavailable | + +------+ + Source Comments AMELIA is fully live on both Epic[facility] Ambulatory and [facility] & [facility] Allergies + + + + + + [...] | | | + +--------+ +--------+-------+---------+--------+ | [facility] | [facility] | xxxxxxxxxx | Effect | | | [...] Person | Self | [birth year] | | [address] | | | al/Fam | | 4 | [phone] | [place] [address] | | | beulah | | | 6 (Home) | | + +--------+ +--------+ + + | Albert Carcamo | Agency | Self | [birth year] | | [address] | | | | | 1956 | [phone] | [place] [address] | | | | | | 6 (Home) | | + +--------+ +--------+ + +
[~2018-08-10 15:16] MED LIST changes: +BETAMETHASONE V60 ML TOP; +NORCO 5-325 TA1 EACH PO
--- OUTSIDE RECORDS SUMMARY | 2018-08-10 15:18 | XMS ---
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 Details: AMA CRITERIA MET - Group Notification CARE PROVIDERS MUMTAZ [facility] Current PHONE: [phone] Russ has no Care Guidelines for this patient. EAlia. VISIT COUNT (12 MO.) 1 [facility]. TOTAL 1 NOTE: Visits indicate total known visits. ED/UCC VISIT TRACKING (12 MO.) 08/10/2018 15:17 [facility] TYPE: Emergency COMPLAINT: - ABNORMAL LABS INPATIENT VISIT TRACKING (12 MO.) No inpatient visits to display in this time frame [email or web address]
[2018-08-10] MEDS ORDERED: VENTOLIN HFA18 GM (16:17)
[2018-08-10] MEDS ORDERED: MACRODANTIN100 MG PO (16:17)
== END 2018-08-10 19:32 | disposition home or self-care (01) ==
LOC: ED 15:16
DX: E11.65 Type 2 diabetes mellitus with hyperglycemia (principal); I10 Essential (primary) hypertension; Z87.891 Personal history of nicotine dependence; Z90.49 Acquired absence of other specified parts of digestive tract; Z95.5 Presence of coronary angioplasty implant and graft; Z88.2 Allergy status to sulfonamides; Z91.030 Bee allergy status; Z79.82 Long term (current) use of aspirin; Z79.4 Long term (current) use of insulin; Z79.899 Other long term (current) drug therapy
CPT/HCPCS: 80053; 81001; 82010; 82803; 85025; 96360; 99283-25; J1815; J7030

== ENCOUNTER 2018-11-12 11:27 | Emergency (ER) | payer MEDICARE, OTHER, MEDICAID ==
[~2018-11-12] VITALS: Ht 162.6 cm; Wt 95.7 kg
[~2018-11-12 11:27] MED LIST changes: +MACRODANTIN100 MG PO; +VENTOLIN HFA18 GM
--- OUTSIDE RECORDS SUMMARY | 2018-11-12 11:30 | XMS ---
PreManage Notification: RACHAEL GARCIA Security Agriculture Technician Events No recent Security Events currently on file CRITERIA MET - Group Notification CARE PROVIDERS MUMTAZ [facility] Current PHONE: [phone] Russ has no Care Guidelines for this patient. EYvette VISIT COUNT (12 MO.) 2 [facility] [place] TOTAL 2 NOTE: Visits indicate total known visits. ED/UCC VISIT TRACKING (12 MO.) 11/12/2018 11:28 [facility] [place] TYPE: Emergency COMPLAINT: - ABD PAIN 08/10/2018 15:17 [facility] [place] TYPE: Emergency COMPLAINT: - ABNORMAL LABS DIAGNOSES: - salvage determiner (current) use of insulin - Allergy status to sulfonamides status - Bee allergy status - Hyperglycemia, unspecified - Presence of coronary angioplasty implant and graft - Other usp (current) drug therapy - Personal history of nicotine dependence - retirement (current) use of aspirin - Acquired absence of other specified parts of digestive tract - Type 2 diabetes mellitus with hyperglycemia - Essential (primary) hypertension INPATIENT VISIT TRACKING (12 MO.) No inpatient visits to display in this time frame [email or web address]
[2018-11-12] MEDS ORDERED: NORCO 5-325 TA1 EACH PO (16:45)
[2018-11-12] MEDS ORDERED: FLOMAX0.4 MG PO (16:45)
== END 2018-11-12 17:00 | disposition home or self-care (01) ==
LOC: ED 11:27
DX: N20.1 Calculus of ureter (principal); I10 Essential (primary) hypertension; K21.9 Gastro-esophageal reflux disease without esophagitis; E11.9 Type 2 diabetes mellitus without complications; I20.9 Angina pectoris, unspecified; E78.5 Hyperlipidemia, unspecified; Z87.891 Personal history of nicotine dependence; Z88.2 Allergy status to sulfonamides; Z91.030 Bee allergy status; Z79.899 Other long term (current) drug therapy; Z79.4 Long term (current) use of insulin; Z79.82 Long term (current) use of aspirin
CPT/HCPCS: 36415; 74176; 80053; 81001; 85025; 96374; 99284-25; J1885

== ENCOUNTER 2018-11-22 14:42 | Emergency (ER) | payer MEDICARE, OTHER, MEDICAID ==
[~2018-11-22] VITALS: Ht 162.6 cm; Wt 99.3 kg
[~2018-11-22 14:42] MED LIST changes: +FLOMAX0.4 MG PO
--- OUTSIDE RECORDS SUMMARY | 2018-11-22 14:44 | XMS ---
PreManage Notification: RACHAEL GARCIA Security Director Web Events No recent Security Events currently on file CRITERIA MET - Group Notification - [facility] - Has Care Guidelines - [facility] - 2 Visits in 30 Days CARE PROVIDERS SERGIO HARRINGTON Nurse Practitioner 11/13/2018-Current PHONE: [phone] MUMTAZ [facility] Current PHONE: [phone] Russ has no Care Guidelines for this patient. Care History Medical/Surgical 11/13/2018 [facility] \T\middot;\T\nbsp; PATIENT IS A [employer] MEMBER. \T\middot;\T\nbsp; PLEASE REFER PATIENT TO [facility] FOR NON EMERGENT MEDICAL NEEDS. \T\middot;\ T\nbsp; [facility] CAN SEE PATIENTS SAME DAY FOR APTS IF PATIENT CALLS FIRST THING IN THE MORNING. E.D. VISIT COUNT (12 MO.) 3 [facility] [place] TOTAL 3 NOTE: Visits indicate total known visits. ED/UCC VISIT TRACKING (12 MO.) 11/22/2018 14:43 [facility] [place] TYPE: Emergency COMPLAINT: - INTOXICATION 11/12/2018 11:28 [facility] [place] TYPE: Emergency COMPLAINT: - ABD PAIN DIAGNOSES: - terminal press operator (current) use of insulin - Allergy status to sulfonamides status - Type 2 diabetes mellitus without complications - Personal history of nicotine dependence - Gastro-esophageal reflux disease without esophagitis - Other custodial (current) drug therapy - Bee allergy status - detention (current) use of aspirin - Essential (primary) hypertension - Hyperlipidemia, unspecified - Unspecified abdominal pain - Calculus of ureter - Angina pectoris, unspecified 08/10/2018 15:17 [facility] [place] TYPE: Emergency COMPLAINT: - ABNORMAL LABS DIAGNOSES: - detention (current) use of insulin - Allergy status to sulfonamides status - Bee allergy status - Hyperglycemia, unspecified - Presence of coronary angioplasty implant and graft - Other custodial (current) drug therapy - Personal history of nicotine dependence - terminal press operator (current) use of aspirin - Acquired absence of other specified parts of digestive tract - Type 2 diabetes mellitus with hyperglycemia - Essential (primary) hypertension INPATIENT VISIT TRACKING (12 MO.) No inpatient visits to display in this time frame [id number]
[2018-11-22] MEDS ORDERED: PERCOCET 5-3251 EACH PO (18:07)
[2018-11-22] MEDS ORDERED: INDOMETHACIN50 MG PO (18:07)
--- NOTE | 2018-11-23 12:01 | EKG ---
[facility] [address] [place], [place] [address] Signed Normal sinus rhythm Normal ECG When compared with ECG of 19-JUN-2017 12:05, No significant change was found Confirmed by SHERLY RODRIGUES MD ([id number]) on 11/23/2018 12:01:25 PM Electronically Signed By: SHERLY RODRIGUES MD 11/23/18 1201 PATIENT NAME: RACHAEL GARCIA Electrocardiogram DATE OF : 51 PHYSICIAN: SHERLY RODRIGUES MD REPORT #: [id number] REPORT IS CONFIDENTIAL AND NOT TO BE RELEASED WITHOUT AUTHORIZATION
== END 2018-11-22 18:22 | disposition home or self-care (01) ==
LOC: ED 14:42
DX: R10.9 Unspecified abdominal pain (principal); I10 Essential (primary) hypertension; E11.9 Type 2 diabetes mellitus without complications; K21.9 Gastro-esophageal reflux disease without esophagitis; E78.5 Hyperlipidemia, unspecified; Z87.891 Personal history of nicotine dependence; Z95.5 Presence of coronary angioplasty implant and graft; Z91.030 Bee allergy status; Z79.4 Long term (current) use of insulin; Z79.82 Long term (current) use of aspirin; Z79.899 Other long term (current) drug therapy
CPT/HCPCS: 74176; 80053; 81001; 85025; 93005; 93010; 96374; 96375; 99284-25; J1885; J2405

== ENCOUNTER 2019-07-05 16:59 | Emergency (ER) | payer MEDICARE, MEDICAID, OTHER ==
[~2019-07-05] VITALS: Ht 162.6 cm; Wt 99.8 kg
--- OUTSIDE RECORDS SUMMARY | ~2019-07-05 | XMS | Encounter Summary ---
Demographics + + + | Address | [address] | | | [place] [address] | + + + | Home Phone | | + + + | Preferred Language | Unknown | + + + | Marital Status | Legally | + + + | Hoahaoism Affiliation | Unknown | + + + | Race | Unknown | + + + | Ethnic Group | Unknown | + + + Author + + + | Author | [facility] | | | and [place] | + + + | Organization | [facility] | | | and [place] | + + + | Address | Unknown | + + + | Phone | Unavailable | + + + Support + + +---------+ + | Name | Relationship | Address | Phone | + + +---------+ + | Raad Kari | ECON | Unknown | | + + +---------+ + | Shawn Peña | ECON | Unknown | | + + +---------+ + Care Team Providers + +------+ + | Care Web Site Manager Name | Role | Phone | + +------+ + | Deloris Tolbert | PCP | | + +------+ + Reason for Visit + + + | Reason | Comments | + + + | Procedure | EGD instructions | + + + Encounter Details +--------+ + + + + | Date | Type | Department | Care Team | Description | +--------+ + + + + | 11/05/ | Telephone | [facility] | [facility] | Procedure (EGD | | 2019 | | GASTROENTEROLOGY | MD [address] | instructions) | | | | [address] | [address] | | | | | [address], [place] | [place] [address] | | | | | [address] | [phone] | | | | | [phone] | | | +--------+ + + + + Social History + +-------+ +--------+------+ | Tobacco Use | Types | Packs/Day | Years | Date | | | | | Used | | + +-------+ +--------+------+ | Former Smoker | | | | | + +-------+ +--------+------+ + +---+---+---+ | Smokeless Tobacco: | | | | | Never Used | | | | + +---+---+---+ + + +---------+ + | Alcohol Use | Drinks/Week | oz/Week | Comments | + + +---------+ + | Never | | | | + + +---------+ + + + + + | Alcohol Habits | Answer | Date Recorded | + + + + | How often do you have a drink containing | Never | 08/20/2018 | | alcohol? | | | + + + + | How many drinks containing alcohol do you | Not asked | | | have on a typical day when you are | | | | drinking? | | | + + + + | How often do you have six or more drinks on | Not asked | | | one occasion? | | | + + + + + + + | Sex Assigned at | Date Recorded | | | | + + + | Not on file | | + + + + + + + | Job Start Date | Occupation | Industry | + + + + | Not on file | Not on file | Not on file | + + + + + + + + | Travel History | Travel Start | Travel End | + + + + + + | No recent travel history available. | + + documented as of this encounter Plan of Treatment Not on filedocumented as of this encounter Visit Diagnoses Not on filedocumented in this encounter Additional Health Concerns + + + + | Infection | Noted Time | Resolved Time | + + + + | Methicillin-resistant Staphylococcus aureus | 05/17/2013 3:06 PM | | | | PST | | + + + + documented as of this encounter"
--- OUTSIDE RECORDS SUMMARY | ~2019-07-05 | XMS | Encounter Summary ---
Demographics + + + | Address | [address] | | | [place] [address] | + + + | Home Phone | | + + + | Preferred Language | Unknown | + + + | Marital Status | Single | + + + | Gnosticist Affiliation | BAP | + + + | Race | White | + + + | Ethnic Group | Not or | + + + Author + + + | Author | [facility] | + + + | Organization | [facility] | + + + | Address | Unknown | + + + | Phone | Unavailable | + + + Support + + +---------+ + | Name | Relationship | Address | Phone | + + +---------+ + | Raad Steward | ECON | Unknown | | + + +---------+ + Care Team Providers + +------+ + | Care Medical Language Specialist Name | Role | Phone | + +------+ + | Elaina Emerson ASSISTIVE TECHNOLOGY TRAINER | PCP | | + +------+ + Reason for Visit + + + | Reason | Comments | + + + | New patient | | | consultation | | + + + Office Visit - E/M Services (Routine) +--------+--------+ + + + + | Status | Reason | Specialty | Diagnoses / | Referred By | Referred To | | | | | Procedures | Contact | Contact | +--------+--------+ + + + + | Closed | | Orthopedics | Diagnoses | Remberto, | Sher, | | | | | Lesion | [place], | MD Anna | | | | | proximal | Eastern | [address] | | | | | Humerus | [facility] | [address] | | | | | | & Fractur | [facility] [place] | | | | | | [address] | [address] | | | | | | [address] | Phone: | | | | | | [place], | [phone] | | | | | | [place] [address] | Fax: | | | | | | Phone: | [phone] | | | | | | [phone] | | | | | | | Fax: | | | | | | | [phone] | | +--------+--------+ + + + + Encounter Details +--------+---------+ + + + | Date | Type | Department | Care Team | Description | +--------+---------+ + + + | 04/05/ | Office | Orthopaedics at | Anna Olivarez, | Gurvinder (Primary | | 2010 | Visit | [address] | MD [address] | Dx) | | | | [address] | [place], [place] | | | | | Mailcode: [id number] | [phone] | | | | | [facility] | [phone] | | | | | [place] | | | | | | [address] | | | | | | [phone] | | | +--------+---------+ + + + [...] Pressure | 122/77 | 04/05/2010 1:08 PM | | | | | PST | | + + + + + | Pulse | 87 | 04/05/2010 1:08 PM | | | | | PST | | + + + + + | Temperature | 37.2 C (99 F) | 04/05/2010 1:08 PM | | | | | PST | | + + + + + | Respiratory Rate | - | - | | + + + + + | Oxygen Saturation | - | - | | + + + + + | Inhaled Oxygen | - | - | | | Concentration | | | | + + + + + | Weight | 95.3 kg (210 lb) | 04/05/2010 1:08 PM | | | | | PST | | + + + + + | Height | 162.6 cm (5' 4") | 04/05/2010 1:08 PM | | | | | PST | | + + + + + | Body Mass Index | 36.05 | 04/05/2010 1:08 PM | | | | | PST | | + + + + + documented in this encounter Progress Notes Anna Olivarez MD - 04/05/2010 2:44 PM PSTFormatting of this note might be different fr om the original. Dx: enchondroma L prox humerus Chief Complaint: L shoulder pain This is a consult from [place] HPI: 54 y.o. F here for evaluation of L shoulder pain. Has a h/o adhesive capsulitis L lia garcia 2 yrs ago, resolved with PT/OT. Still has some L shoulder pain, feels muscular in saturnino ure. On wkup of L shoulder pain, had XR taken which showed calcification. Also had MRI and bone scan. Referred here for further mgmt. RHD. Able to use L shoulder for ADLs. Past Medical History Diagnosis Date High cholesterol Diabetes COPD (chronic obstructive pulmonary disease) Anxiety Heart attack 2002 Hypothyroid Rheum arth Psoriasis Past Surgical History Procedure Date Stent placement 2004 Gallbladder surgery 1997 Tubal ligation 1976 Colonoscopy 2007 Upper gi surgery Current Medication [...] Take 20 mg by mouth once daily. SALSALATE ORAL Take by mouth. Family History Problem Relation Age of Onset Cancer Mother stomach;uterus Cancer Maternal Aunt Diabetes Maternal Uncle Diabetes Maternal Aunt Heart Disease Father Heart Disease Brother Heart Disease Brother Heart Disease Mother History Social History Marital Status: Single Spouse Name: N/A Number of Children: N/A Years of Education: N/A Social History Main Topics Smoking status: Not on file Smokeless tobacco: Not on file Alcohol Use: Not on file Drug Use: Not on file Sexually Active: Not on file Other Topics Concern Not on file Social History Narrative No narrative on file Review of Systems: General: No constitutional symptoms of fevers, fatigue, chills, weight loss or sweats. Eyes: No changes in vision loss, double vision, eye pain, eye irritation, discharge, blurr ed vision or light sensitivity. Ears, Nose and Throat: No hearing loss, ringing in the ears, ear discharge, earache, noseb raina, nasal congestion, difficulty swallowing, hoarseness or sore throat. Respiratory: No coughing up blood, excessive sputum, cough, chest discomfort or wheezing. +shortness of breath, Musculoskeletal: No swelling, stiffness, back pain, arthritis, muscle aches, muscle cramps or loss of strength. +joint pain L shoulder, Cardiovascular: No skipping beats, lightheadedness, difficulty breathing upright or lying down, fatigue, near fainting or fainting, weight gain, leg cramps. + chest pain, palpitatio ns, edema, Gastrointestinal: No loss of appetite, excessive appetite, indigestion, vomiting, constipa tion, gas, abdominal pain, hemorrhoids, diarrhea, bloating, bloody stools or dark tarry stoo ls. +nausea, reflux Genitourinary: No blood in urine, discharge, painful urination, incontinence, urinary urge ncy or genital sores. +urinary frequency, difficulty in urination, Neurologic: No unusual headaches, inability to speak, poor balance, numbness, tingling, tr emors, memory loss, disturbances in coordination or sensation of room spinning. Skin: No itching, poor wound healing, night sweats, changes in skin color, dryness, flushi ng or suspicious lesions. +psoriasis Psychological: No abnormal anxiety, depression, thoughts of suicide or hallucinations. Heme/Lymphatic: No skin discoloration, abnormal bleeding or enlarged lymph nodes. Endocrine: No heat intolerance, cold intolerance, excessive hunger or excessive thirst. Allergic: No seasonal allergies, hives or rash, persistent infections or HIV exposure. PE: Ht 162.6 cm (5' 4")( < 3 %ile), Wt 95.255 kg (210 lbs)( < 3 %ile), BP 122/77, Pulse 87, Tem perature 37.2 C (99 F), Temperature source Oral, BMI 36.05 kg/(m^2). Gen: NAD WDWN overweight LUE: AROM FE 160/ER 70/IR T10. SILT M/R/U/A. Motor 07/15 D/B/T/WE/Int. 07/15 RTC muscles. N o ttp biceps tendon. No ttp acromion, clavicle, ac jt. 2+rad. No axillary lymphadenopathy . Imaging: XR today and 01/2010: lesion with calcific stipping in L humeral head, stable between 2 jay ms. No soft tissue mass. No periosteal reaction. No cortical expansion or thinning. Bone scan: slightly increased uptake in L humeral head. A/P: enchondroma L prox humerus, stable over 3 mo period -pt to have MRI sent here for us to eval -f/u 6 mo w/ new XR L shoulder (AP, ax, scapular-Y) -no objections to intraarticular injections if pt needs one documented in this encounter Plan of Treatment Not on filedocumented as of this encounter Visit Diagnoses + + | Diagnosis | + + | Enchondroma - Primary Benign neoplasm of bone and articular cartilage, site | | unspecified | + + documented in this encounter
--- OUTSIDE RECORDS SUMMARY | ~2019-07-05 | XMS | Encounter Summary ---
Demographics + + + | Address | [address] | | | [place] [address] | + + + | Home Phone | | + + + | Preferred Language | Unknown | + + + | Marital Status | Single | + + + | Anabaptism Affiliation | BAP | + + + | Race | White | + + + | Ethnic Group | Not or | + + + Author + + + | Author | [facility] | + + + | Organization | [facility] | + + + | Address | Unknown | + + + | Phone | Unavailable | + + + Support + + +---------+ + | Name | Relationship | Address | Phone | + + +---------+ + | Raad Steward | ECON | Unknown | | + + +---------+ + Care Team Providers + +------+ + | Care Oracle Financials Developer Name | Role | Phone | + [...] | | | | | proximal | MD Eastern | [address] | | | | | Humerus | [facility] | [address] | | | | | | & Fractur | [facility] [place] | | | | | | [address] | [address] | | | | | | [address] | Phone: | | | | | | [place], | [phone] | | | | | | [place] [address] | Fax: | | | | | | Phone: | [phone] | | | | | | [phone] | | | | | | | Fax: | | | | | | | [phone] | | +--------+--------+ + + + + Encounter Details +--------+---------+ + + + | Date | Type | Department | Care Team | Description | +--------+---------+ + + + | 10/04/ | Office | Orthopaedics at | Anna Olivarez, | Bendrameza (Primary | | 2010 | Visit | [address] | MD [address] | Dx) | | | | [address] | [place], [place] | | | | | Mailcode: [id number] | [address] | | | | | [facility] | [phone] | | | | | [place], [place] | | | | | | [address] | | | | | | [phone] | | | +--------+---------+ + + + [...] FE 170/ER 70/IR T10. SILT M/R/U/A. Motor 07/15 D/B/T/WE/Int. / RTC muscles. N o ttp biceps tendon. [...]
--- OUTSIDE RECORDS SUMMARY | ~2019-07-05 | XMS | Clinical Summary ---
Demographics + + + | Address | [address] | | | [place] [address] | + + + | Home Phone | | + + + | Preferred Language | Unknown | + + + | Marital Status | Unknown | + + + | Adventism Affiliation | Unknown | + + + | Race | Unknown | + + + | Ethnic Group | Unknown | + + + Author + + + | Author | [facility] (Historical as of | | | 10-27-18) | + + + | Organization | [facility] (Historical as of | | | 10-27-18) | + + + | Address | Unknown | + + + | Phone | Unavailable | + + + Support + + +---------+ + | Name | Relationship | Address | Phone | + + +---------+ + | Kari,Raad | ECON | Unknown | | + + +---------+ + | Shawn Peña | ECON | Unknown | | + + +---------+ + Care Team Providers + +------+ + | Care Patient Service Rep Name | Role | Phone | + [...] Lactose Intolerance | Diarrhea | Low | 08/30/20 | | | (Gi) | | | 18 | | + + + + + + | Other-Environmental | Other (See Comments) | Medium | | SDS: Sodium | | | | | | dodecyl sulfate | + + + + + + | Sulfa Antibiotics | Nausea Only | Low | 12/18/20 | | | | | | 14 [...] + + | Overview: 2.75x18 mm Cypher DRAY mid LAD | + + + +---+ [...] + + | Brother | | | [place] | | | | (Age | | [...] | | | | (Season Ended) | 0 | | | + + + + [...] +------+-------+ + | MEDICAID | [place] | [id number] | | | [address] | | | [place] | | | | [place] | | | [place] | | | | [address] | | | DIRECTOR OF SERVICES | | | | | + +--------+ +------+-------+ + | [employer] [facility] | YELLOW | [phone] | | | | | PLANS | [...] | Self [birth year] Home: | [address] | | | al/Fam | | 1955 | [phone] [place] | | | beulah | | | [address] | [address] | + +--------+ +--------+ + +
--- OUTSIDE RECORDS SUMMARY | ~2019-07-05 | XMS | Encounter Summary ---
Demographics + + + | Address | [address] | | | [place] [address] | + + + | Home Phone | | + + + | Preferred Language | Unknown | + + + | Marital Status | Legally | + + + | Hinduism Affiliation | Unknown | + + + | Race | Unknown | + + + | Ethnic Group | Unknown | + + + Author + + + | Author | [facility] | | | and [place] | + + + | Organization | [facility] | | | and [...] Team Providers + +------+ + | Care Decontamination Technician Name | Role | Phone | + +------+ + PCP | Unavailable | + +------+ + Encounter Details +--------+ + + + + | Date | Type | Department | Care Team | Description | +--------+ + + + + | 06/18/ | Hospital | [facility] | | | | 2007 | Encounter | [facility] | | | | | | CENTER [address] | | | | | | [place] | | | | | | [address] | | | | | | [phone] | | | +--------+ + + + [...] Visit Diagnoses Not on filedocumented in this encounter"
--- OUTSIDE RECORDS SUMMARY | ~2019-07-05 | XMS | Encounter Summary ---
Demographics + + + | Address | [address] | | | [place] [address] | + + + | Home Phone | | + + + | Preferred Language | Unknown | + + + | Marital Status | Single | + + + | Druze Affiliation | BAP | + + + | Race | White | + + + | Ethnic Group | Not or | + + + Author + + + | Author | [facility] | + + + | Organization | [facility] | + + + | Address | Unknown | + + + | Phone | Unavailable | + + + Support + + +---------+ + | Name | Relationship | Address | Phone | + + +---------+ + | Raad Steward | ECON | Unknown | | + + +---------+ + Care Team Providers + +------+ + | Care Development Mgr Name | Role | Phone | + +------+ + | Elaina Emerson AIRCRAFT SEAT UPHOLSTERER | PCP | | + +------+ + Encounter Details +--------+ + + + + | Date | Type | Department | Care Team | Description | +--------+ + + + + | 09/29/ | Product Promoter Sales Person | Orthopaedics at | Anna Olivarez, | Enchondroma (Primary | | 2010 | | [address] | MD [address] | Dx) | | | | [address] | [facility] [place] | | | | | Mailcode: [id number] | [address] | | | | | [facility] | [phone] | | | | | [place], [place] | | | | | | [address] | | | | | | [phone] | | | +--------+ + + + [...] Not on filedocumented as of this encounter Results X-RAY SHOULDER 3+ VIEWS LEFT (10/04/2010 2:59 PM PDT) + + + + + + | Component | Value | Ref Range | Performed | Pathologist | | | | | At | Signature | + + + + + + | SHOULDER 3+ | STUDY: SHOULDER 3 VIEWS | | | | | VIEWS LEFT | LEFT 10/04/10 14:59:00 | | | | | | COMPARISON: 04/05/10. | | | | | | HISTORY: Enchondroma. | | | | | | FINDINGS: The stippled | | | | | | calcified lesion within | | | | | | the proximal humerus, | | | | | | partiallyextending into | | | | | | the base of the lesser | | | | | | tuberosity is unchanged | | | | | | inappearance and size. | | | | | | Measurements on the | | | | | | axillary view are 1.5 x | | | | | | 1.9cm, which is | | | | | | unchanged. No new | | | | | | lytic component, | | | | | | endostealscalloping, | | | | | | cortical breakthrough or | | | | | | periosteal new bone | | | | | | formation isobserved. | | | | | | The remaining osseous | | | | | | structures are intact. | | | | | | There is ahealed mid | | | | | | left clavicular | | | | | | fracture. No acute | | | | | | fracture is | | | | | | observed.Glenohumeral | | | | | | alignment is normal. | | | | | | No soft tissue | | | | | | abnormality isdetected. | | | | | | IMPRESSION: Stable | | | | | | appearance of a | | | | | | low-grade chondroid | | | | | | lesion within the | | | | | | proximalleft humerus. | | | | | | Attending Radiologists: | | | | | | Rosa Capps, | | | | | | M.DMjAuthor: Rosa | | | | | | Chito Capps I have | | | | | | personally viewed this | | | | | | procedure/exam, reviewed | | | | | | this report,and made | | | | | | changes to it where | | | | | | appropriate. | | | | | | Final/Electronically | | | | | | signed / Rosa | | | | | | Jefry 10/04/2010 | | | | | | 17:29PM | | | | + + + + + + + + | Specimen | + + | | + + + +---------+ + + | Performing | Address | City/State/Zipcode | Phone Number | | Organization | | | | + +---------+ + + | [facility] | | | | [facility]IOLOGY | | | | + +---------+ + + documented in this encounter Visit Diagnoses + + | Diagnosis | + + | Enchondroma - Primary Benign neoplasm of bone and articular cartilage, site | | unspecified | + + documented in this encounter"
--- OUTSIDE RECORDS SUMMARY | ~2019-07-05 | XMS | Clinical Summary ---
Demographics + + + | Address | [address] | | | [place] [address] | + + + | Home Phone | | + + + | Preferred Language | Unknown | + + + | Marital Status | Legally | + + + | Hoahaoism Affiliation | Unknown | + + + | Race | Unknown | + + + | Ethnic Group | Unknown | + + + Author + + + | Author | [facility] | | | [facility] [place] | + + + | Organization | [facility] | | | [facility] [place] | + + + | Address | Unknown | + + + | Phone | Unavailable | + + + Support + + +---------+ + | Name | Relationship | Address | Phone | + + +---------+ + | Raad Parr | ECON | Unknown | | + + +---------+ + | Shawn Peña | ECON | Unknown | | + + +---------+ + Care Team Providers + +------+ + | Care Program Production Specialist Name | Role | Phone | + +------+ + | Deloris Tolbert | PCP | | + +------+ + Allergies + + + + + + | Active Allergy | Reactions | Severity | Noted | Comments | | | | | Date | | + + + + + + | Amoxicillin-Pot | | | | | | Clavulanate | | | | | + + + + + + | Amoxicillin-Pot | Other (See Comments) | Medium | 10/09/19 | | | Clavulanate | | | 19 | | + + + + + + | Bee Venom | Anaphylaxis | High | | | + + + + + + | Lactose Intolerance | Diarrhea | Low | 11/10/19 | | | (Gi) | | | 18 | | + + + + + + | Metformin | Other (See Comments) | | 08/21/19 | Reaction: unknown | | | | | 19 | | + + + + + + | Uncoded | Other (See Comments) | Medium | 10/09/19 | SDS: Sodium | | Nonscreenable | | | 19 | dodecyl sulfate | | Allergen | | | | | + + + + + + | Soap | | | | SDS: Sodium | | | | | | dodecyl sulfate | + + + + + + | Sulfa Antibiotics | Nausea Only | Low | 02/28/20 | | | | | | 14 | | + + + + + + Medications + + + +---------+------+------+-------+ | Medication | Sig | Dispensed | Refills | Star | End | Statu | | | | | | t | Date | s | | | | | | Date | | | + + + +---------+------+------+-------+ | hydrophilic | Apply a thin layer | | 0 | 09/1 | | Activ | | ointment | to the affected area | | | 4/20 | | e | | | of feet every | | | 12 | | | | | morning | | | | | | + + + +---------+------+------+-------+ | mupirocin | Apply a small amount | | 0 | 09/1 | | Activ | | (BACTROBAN) 2% | in each nostril at | | | 4/20 | | e | | ointment | [...] | | | | + + + +---------+------+------+-------+ | glucose blood | Use as directed | | 0 | 09/1 | | Activ | | test strips (CHERRY | | | | 4/20 | | e | | CONTOUR TEST) strip | | | | 12 | | | + + + +---------+------+------+-------+ | Ipratropium | AERS Inhale 1 to 2 | | 0 | 09/1 | | Activ | | [place] HFA | puffs every 6 hours | | | 4/20 | | e | | (ATROVENT HFA IN) | as needed for | | | 12 | | | | | shortness of breath | | | | | | + + + +---------+------+------+-------+ | nitroglycerin | Take 1 tablet | | 0 | 09/1 | | Activ | | (NITROSTAT) 0.4 mg | sublingually every 5 | | | 4/20 | | e | | SL tablet [...] | | | | + + + +---------+------+------+-------+ | omeprazole | Take 20 mg by mouth | | 0 | 09/1 | | Activ | | (PRILOSEC) 20 mg | 2 times daily. | | | 4/20 | | e | | capsule | | | | 12 | | | + + + +---------+------+------+-------+ | Alcohol Swabs 70 % | 1 Pad by Does not | | 0 | | | Activ | | PADS | apply route as | | | | | e | | | needed (To wipe area | | | | | | | | as directed). | | | | | | + + + +---------+------+------+-------+ | aspirin 81 MG | Take 81 mg by mouth | | 0 | | | Activ | | tablet | Daily. | | | | | e | + + + +---------+------+------+-------+ | Insulin Pen Needle | by Does not apply | | 0 | | | Activ | | (EASY TOUCH PEN | route. | | | | | e | | NEEDLES) 32G X 4 MM | | | | | | | | MISC | | | | | | | + + + +---------+------+------+-------+ | betamethasone | Apply 1 Application | | 0 | | | Activ | | valerate (VALISONE) | topically 2 times | | | | | e | | 0.1 % lotion | daily. | | | | | | + + + +---------+------+------+-------+ | Emollient (CERAVE) | Apply 1 Application | | 0 | | | Activ | | CREA | topically as needed | | | | | e | | | (Apply a small | | | | | | | | amount to affected | | | | | | | | area as directed for | | | | | | | | dry skin.). | | | | | | + + + +---------+------+------+-------+ | Misc. Throat | Take 1 capful by | | 0 | | | Activ | | Products (OASIS | mouth 2 times daily. | | | | | e | | MOISTURIZING | | | | | | | | MOUTHWASH) LIQD | | | | | | | + + + +---------+------+------+-------+ | albuterol 90 | Inhale 2 puffs into | | 0 | | | Activ | | mcg/puff inhaler | the lungs every 4 | | | | | e | | | (four) hours as | | | | | | | | needed for Wheezing. | | | | | | + + + +---------+------+------+-------+ | ibuprofen | Take 600 mg by mouth | | 0 | | | Activ | | (ADVIL,MOTRIN) 600 | every 6 (six) hours | | | | | e | | MG tablet | as needed for Pain. | | | | | | + + + +---------+------+------+-------+ | Cholecalciferol | Take 5,000 Units by | | 0 | | | Activ | | (VITAMIN D-3) 5000 | mouth daily. | | | | | e | | units CAPS | | | | | | | + + + +---------+------+------+-------+ | insulin aspart | Inject 28 Units into | | 0 | | | Activ | | (NOVOLOG) 100 | the skin 3 (three) | | | | | e | | units/mL injection | times daily before | | | | | | | | meals. Sliding scale | | | | | | + + + +---------+------+------+-------+ | insulin glargine | Inject 72 Units into | | 0 | | | Activ | | (LANTUS) 100 | the skin 2 (two) | | | | | e | | units/mL injection | times daily. | | | | | | | (vial) | | | | | | | + + + +---------+------+------+-------+ | levothyroxine | Take 150 mcg by | | 0 | | | Activ | | (SYNTHROID) 150 mcg | mouth every morning | | | | | e | | tablet | before breakfast. | | | | | | + + + +---------+------+------+-------+ | metoprolol | Take 25 mg by mouth | | 0 | | | Activ | | succinate | daily. | | | | | e | | (TOPROL-XL) 25 mg 24 | | | | | | | | hr tablet | | | | | | | + + + +---------+------+------+-------+ | dicyclomine | Take 1 tablet by | 60 | 3 | 10/ | | Activ | | (BENTYL) 20 MG | mouth 3 times daily | tablet | | 09/29 | | e | | tabletIndications: | as needed (GI | | | 19 | | | | Irritable bowel | cramps). | | | | | | | syndrome with both | | | | | | | | constipation and | | | | | | | | diarrhea | | | | | | | + + + +---------+------+------+-------+ Active Problems + + + | Problem | Noted Date | + + + | S/P PTCA (percutaneous transluminal coronary angioplasty) | 11/19/2018 | + + + | Hoarseness | 11/05/2018 | + + + + + | Overview: Added automatically from request for surgery | | [id number] | + + + + + | Gastroesophageal reflux disease, esophagitis presence not | 11/05/2018 | | specified | | + + + + + | Overview: Added automatically from request for surgery | | [id number] | + + + + + | Sore throat | 11/05/2018 | + + + + + | Overview: Added automatically from request for surgery | | [id number] | + + + + + | Epigastric pain | 11/05/2018 | + + + + + | Overview: Added automatically from request for surgery | | [id number] | + + + + + | Obstructive sleep apnea syndrome | 10/08/2018 | + + + + + | Overview: not on CPAP (could not tolerate) | + + + + + | Essential hypertension | 02/27/2014 | + + + + + | Overview: Last Assessment & Plan: Hypertension, controlled, | | continue current meds.Lab, 06/23/2014: Trop-T: <0.010, AST/ALT: | | 5877, K: 4.4, BUN/Cr: 101/0.6, glu: 348, M.7 | | WBC: 6.8, H/H: 13.0/41.9, plt: 224Lab, 09/03/2014: TSH: | | 2.17, free T4: 1.44, HgbA1c: 10.7 | + + + + + | Status post insertion of drug-eluting stent into left anterior | 12/23/2004 | | descending (LAD) artery for coronary artery disease | | + + + + + | Overview: 2.75x18 mm Cypher DARY mid LAD | + + + +---+ | HYPOTHYROIDISM | | + +---+ | Diabetes mellitus, type 2 | | + +---+ + + | Overview: Last Assessment & Plan: | | DM2, managed by PCP. | + + + +---+ | CHRONIC OBSTRUCTIVE PULMONARY DISEASE | | + +---+ | Coronary atherosclerosis | | + +---+ + + | Overview: Last Assessment & Plan: 1V-CAD, Hx PCI/stent, LVEF | | 60-65%. 59yo MARCUS, with known coronary disease, she's been | | plagued by frequent recurrent episodes of chest discomfort, | | somewhat atypical nature. They generally are migratory, and | | fleeting. A nuclear perfusion study has been performed, and this | | is benign. Recent labs reviewed. Reassurance given. | | Tolerating medications. No changes in therapy. Lifestyle | | modifications encouraged, this includes exercise and caloric | | restriction.Hx CABG: noHx PCI/stent: 12/23/2004, LAD (2.75*18mm | | Cypher DARY).Hx Pacemaker/ICD: noLast Cath: 12/01/2006: left main | | OK, LAD stent patent with 20% distal in-stent restenosis, LCx OK, | | RCA non-dominant, LVEF 65%.Last Echo, 08/19/2010: LVEF 60-65%, | | mild LAE, mild MR, mild TR, trace AI, trace PI.Last stress test, | | 06/03/2014: 5:15min Jose Francisco, no chest pain, ECG (-), images NML, | | LVEF 69%.ECG, 01/23/2014: sinus rhythm, PRWP, non-spec ST-T | | changes anteriorly. | + + + +---+ | URINARY INCONTINENCE | | + +---+ | DYSPNEA ON EXERTION | | + +---+ | GERD (gastroesophageal reflux disease) | | + +---+ + + | Overview: Last Assessment & Plan: | | Hx HH/GERD, IBS. | + + + +---+ | NONSPEC ELEVATION OF LEVELS OF TRANSAMINASE/LDH | | + +---+ | HLD (hyperlipidemia) | | + +---+ + + | Overview: Last Assessment & Plan: | | Hyperlipidemia, managed by PCP. Labs requested. | + + + +---+ | BREAST TENDERNESS | | + +---+ | ABDOMINAL PAIN OTHER SPECIFIED SITE | | + +---+ | PSORIASIS | | + +---+ Social History + +-------+ +--------+------+ | Tobacco [...] recent travel history available. | + + Last Filed Vital Signs + + + + + | Vital Sign | Reading | Time Taken | Comments | + + + + + | Blood Pressure | 120/72 | 12/27/2018 2:21 PM | | | | | PDT | | + + + + + | Pulse | 67 | 12/27/2018 2:21 PM | | | | | PDT | | + + + + + | Temperature | 36.3 C (97.4 F) | 12/27/2018 2:21 PM | | | | | PDT | | + + + + + | Respiratory Rate | 16 | 12/27/2018 2:21 PM | | | | | PDT | | + + + + + | Oxygen Saturation | 97% | 12/27/2018 2:21 PM | | | | | PDT | | + + + + + | Inhaled Oxygen | - | - | | | Concentration | | | | + + + + + | Weight | 96.8 kg (213 lb 6.5 | 12/27/2018 2:21 PM | | | | oz) | PDT | | + + + + + | Height | 162.6 cm (5' 4") | 12/27/2018 2:21 PM | | | | | PDT | | + + + + + | Body Mass Index | 36.63 | 12/27/2018 2:21 PM | | | | | PDT | | + + + + + Plan of Treatment [...] Hemoglobin A1c | | | | | Screening | 2 | | | + + + + + | Colorectal Cancer | | | | | Screening | 4 | | | | (Colonoscopy) | | | | + + + + + | Breast Cancer | | | | | Screening | 9 | | | + + + + + | Vaccine: Zoster (2 | | 09/03/2014 | | | of 3) | 5 | | | + + + + + | Vaccine: | | | | | Pneumococcal 65+ (1 | 9 | | | | of 2 - PCV13) | | | | + + + + + | Adult Annual | | | | | Wellness Visit | 9 | | | + + + + + | Microalbumin | | | | | Screening | 9 | | | + + + + + | Statin Therapy | | | | | (optimal intensity) | 9 | | | + + + + + | Vaccine: Influenza | | 11/29/2017, 03/22/2017, | | | (Season Ended) | 0 | 01/14/2015, Additional history | | | | | exists | | + + + + + | Vaccine: | | 12/04/2009, 02/08/1999 | | | Dtap/Tdap/Td (2 - | 0 | | | | Td) | | | | + + + + + Results Not on filefrom Last 3 Months Additional Health Concerns + + + + | Infection | Noted Time | Resolved Time | + + + + | Methicillin-resistant Staphylococcus aureus | 05/17/2013 3:06 PM | | | | PST | | + + + + Insurance + +--------+ +--------+ +---------+--------+ | Payer | Benefi | Subscriber | Effect | Phone | Address | Type | | | t Plan | ID | radha | | | | | | / | | Dates | | | | | | Group | | | | | | + +--------+ +--------+ +---------+--------+ | MEDICARE | MEDICA | [id number] | 05/12/19 | [phone] | | Medica | | | RE | | 19-Pre | 5 | | re | | | PART A | | sent | | | | | | AND B | | | | | | + +--------+ +--------+ +---------+--------+ | MEDICARE | MEDICA | [id number] | 05/12/19 | [phone] | | Medica | | | RE | | 19-Pre | 5 | | re | | | PART A | | sent | | | | | | AND B | | | | | | + +--------+ +--------+ +---------+--------+ | [place] | MEDICA | [id number] | 06/12/19 | [phone] | | Medica | | | ID | | 19-Pre | 2 | | id | | | [place] | | sent | | | | + +--------+ +--------+ +---------+--------+ | [employer] | [employer]HS | [id number] | 03/13/19 | | | Indemn | | SERVICE | YELLOW | | 15-Pre | | | ity | | | [place] | | sent | | | | + +--------+ +--------+ +---------+--------+ | [employer] | [employer]HS | [id number] | 01/04/ | | | Indemn | | SERVICE | YELLOW | | 2017-P | | | ity | | | [place] | | resent | | | | + +--------+ +--------+ +---------+--------+ + +--------+ +--------+ + + | Guarantor Name | Accoun | Relation to | Date | Phone | Billing Address | | | t Type | Patient | of | | | | | | | | | | + +--------+ +--------+ + + | Carlos Alberto,Mariece M | Person | Self | [birth year] | [address] | | | al/Fam | | 1956 | [phone] | [place], [place] | | | beulah | | | 5 (Home) | [address] | + +--------+ +--------+ + + | Albert Carcamo Mahi | Person | Self [birth year] | [address] | | | al/Fam | | 1956 | [phone] | [place], [place] | | | beulah | | | 5 (Home) | [address] | + +--------+ +--------+ + + Advance Directives + + + + + | Type | Date Recorded | Patient | Explanation | | | | Windows Server Architect | | + + + + + | Power of | | | | | Human Resources Technician | | | | + + + + + | Advance | 11/07/2018 9:23 | | | | Directive | AM | | | + + + + +
--- OUTSIDE RECORDS SUMMARY | ~2019-07-05 | XMS | Encounter Summary ---
Demographics + + + | Address | [address] | | | [place] [address] | + + + | Home Phone | | + + + | Preferred Language | Unknown | + + + | Marital Status | Legally | + + + | Orthodoxy Affiliation | Unknown | + + + | Race | Unknown | + + + | Ethnic Group | Unknown | + + + Author + + + | Author | [facility] | | | and [place] | + + + | Organization | [facility] | | | and [...] Team Providers + +------+ + | Care Integrated Circuit Layout Designer Name | Role | Phone | + +------+ + | Deloris Tolbert | PCP | | + +------+ + Encounter Details +--------+ + + + + | Date | Type | Department | Care Team | Description | +--------+ + + + + | 10/08/ | Orders Only | [facility] | Provider, | | | 2018 | | [facility] | MD [address] | | | | | CONVERSION [address] | [address] | | | | | [address] [place], [place] | [place] [address] | | | | | [address] | | | | | | [phone] | | | +--------+ + + + [...]
--- OUTSIDE RECORDS SUMMARY | ~2019-07-05 | XMS | Encounter Summary ---
Demographics + + + | Address | [address] | | | [place] [address] | + + + | Home Phone | | + + + | Preferred Language | Unknown | + + + | Marital Status | Legally | + + + | Druze Affiliation | Unknown | + + + | Race | Unknown | + + + | Ethnic Group | Unknown | + + + Author + + + | Author | [facility] | | | and [place] | + + + | Organization | [facility] | | | [...] Team Providers + +------+ + | Care Telecom Sales Consultant Name | Role | Phone | + +------+ + | Deloris Tolbert | PCP | | + +------+ + Reason for Visit + + + | Reason | Comments | + + + | New Patient | | + + + | Inflammatory Bowel | | | Disease | | + + + | Sore Throat | | + + + Evaluate & Treat (Routine) +--------+--------+ + + + + | Status | Reason | Specialty | Diagnoses / | Referred By | Referred To | | | | | Procedures | Contact | Contact | +--------+--------+ + + + + | Closed | | Gastroenterol | Diagnoses | Did[facility], | [facility] | | | ogy | IBS | Deloris P, | Gastroenterol | | | | | (irritable | 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 [id number] | ogy [address] | | | | | bowel | [address] | [address] | | | | | syndrome) | [address] | [address] | | | | | Sore throat | [place], | [place] | | | | | Procedures | [place] [address] | [address] | | | | | OFFICE | Phone: | Phone: | | | | | VISIT | [phone] | [phone] | | | | | | Fax: | Fax: | | | | | | [phone] | [phone] | +--------+--------+ + + + + Encounter Details +--------+---------+ + + + | Date | Type | Department | Care Team | Description | +--------+---------+ + + + | 10/16/ | Office | [facility] | Camden Hansen | Irritable bowel | | 2019 | Visit | GASTROENTEROLOGY | MD Donny [address] | syndrome with both | | | | [address] | [address] | constipation and | | | | [address] [place], [place] | [place] [address] | diarrhea (Primary | | | | [address] | [phone] | Dx); | | | | [phone] | | Gastroesophageal | | | | | | reflux disease, | | | | | | esophagitis presence | | | | | | not specified; | | | | | | Hoarseness; Sore | | | | | | throat; Epigastric | | | | | | pain; Obstructive | | | | | | sleep apnea syndrome | +--------+---------+ + + + Social History [...] + + + | Blood Pressure | 128/74 | 10/16/2018 2:43 PM | | | | | PDT | | + + + + + | Pulse | 70 | 10/16/2018 2:43 PM | | | | | PDT | | + + + + + | Temperature | 36.3 C (97.4 F) | 10/16/2018 2:43 PM | | | | | PDT | | + + + + + | Respiratory Rate | 12 | 10/16/2018 2:43 PM | | | | | PDT | | + + + + + | Oxygen Saturation | 95% | 10/16/2018 2:43 PM | | | | | PDT | | + + + + + | Inhaled Oxygen | - | - | | | Concentration | | | | + + + + + | Weight | 98.4 kg (216 lb 14.9 | 10/16/2018 2:43 PM | | | | oz) | PDT | | + + + + + | Height | 165.1 cm (5' 5") | 10/16/2018 2:43 PM | | | | | PDT | | + + + + + | Body Mass Index | 36.1 | 10/16/2018 2:43 PM | | | | | PDT | | + + + + + documented in this encounter Patient Instructions Patient Instructions Camden Hansen MD - 10/16/2018 2:30 PM PDT1. Start metmucil. If not helping after doing 2 tablespoons twice a day, after 1 week, call. Would then recommend trying colestipol 2. Arrange upper endoscopy 3. Recommend getting a referral to an ENT doctor from your primary care 4. Get lactaid pills and take with milk, but the best solution would be to cut out dairy fr om your diet. documented in this encounter Progress Notes Camden Hansen MD - 10/16/2018 2:30 PM PDTColonoscopy report received: 09/01/16 [facility] Dr Marie Normal entire colon. Good prep. Required 10mg versed and 200mcg fentanyl Interval: follow up colonoscopy in 10 years was recommended erina Beth RN - 10/16/2018 2:30 PM PDT Scheduled patient for egd/manometry w/prop (DOMINGO) on Mon11/07/[address] Hansen; Medi cations (hold DM, PPI day of procedure), surg/med hx, and allergies were reviewed; gave inst ructions for manometry and EGD; NPO food/liquids after midnight day before procedure ; info provided to patient ; completed case request order, notes to MA. Camden Johnson MD - 10/16/2018 2:30 PM PDTFormatting of this note might be different from the melly [facility] Consult Note Date of Office Visit: 10/17/18 Referring Provider: VINOD Potter [address] [facility] [address] [place] [address] Providing Physician: Camden Hansen MD. Chief Complaint: New Patient; Inflammatory Bowel Disease; and Sore Throat History of Present Illness Albert Carcamo is a 63 y.o. female with psoriasis, IBS-D, GERD, DM, DOMINGO, who presents for a sore throat and diarrhea. She provides her own history but she is forgetful and tangential with her history. Voice changes, now for at least 3 months. Voice feels low and she also has a "sore throat". Bottom of her tongue hurts. She has difficulty swallowing. Pepper gets stuck in her tonsils . Her esophagus "feels ok", but she feels like she has GERD. She stopped taking omeprazole 20mg BID 2 years ago "because I worried it would cause cancer ". She gets a pain in her epigastric area that radiates up into her chest. She has taken nitro for this and it has helped. She says that at some point in the past she did a barium swallo w, she cannot recall the results. She says that she has had trouble with her throat for 11 years. She smoked for 43 years, she quit several years ago after having what sounds like a COPD or asthma attack. Albert also reports uncontrollable diarrhea for years, recently worse. She has had fecal i ncontinence. The stools are liquid with her fecal incontinence. This morning she had an episode of fecal incontinence after a shower. She had a BM earlier this morning. She took an unspecified antibiotic in March, which she reports was very effective. She re ports that she had normal stools for 1.5 months after wards, with gradual return of diarrhea . She cut out dairy and it did help. She tried lactaid and it helped. She forgets about her i ssues with dairy and has been consuming more dairy again lately without lactaid. She also reports some episodes of constipation with overflow diarrhea in the past. 2 weeks ago she had constipation that lasted 3 days. She hasn't really tried any medications for her symptoms per her report. Endoscopic History EGD in 2010, Dr Gunter Hiatal hernia, normal duodenum, gastritis Reports colonoscopy in Oct 2017 - tells me it was normal, report n/a Review of Systems ROS A 12 point review of systems was conducted with the patient. Pertinent positives and negati ves listed per HPI Problem List Patient Active Problem List Diagnosis HYPOTHYROIDISM Diabetes mellitus, type 2 CHRONIC OBSTRUCTIVE PULMONARY DISEASE Coronary atherosclerosis URINARY INCONTINENCE DYSPNEA ON EXERTION GERD (gastroesophageal reflux disease) NONSPEC ELEVATION OF LEVELS OF TRANSAMINASE/LDH HLD (hyperlipidemia) BREAST TENDERNESS ABDOMINAL PAIN OTHER SPECIFIED SITE PSORIASIS HTN (hypertension) Obstructive sleep apnea syndrome Status post insertion of drug-eluting stent into left anterior descending (LAD) artery for coronary artery disease Past Medical History Past Medical History: Diagnosis Date Abnormal LFTs (liver function tests) Adjustment disorder with depressed mood Alcohol dependence (HCC) Allergic reaction Anemia Anxiety Arthritis Chest pain, atypical Chronic anterior uveitis Chronic constipation with overflow COPD (chronic obstructive pulmonary disease) (HCC) Cramp of both lower extremities Depressive disorder Diabetic gastroparesis (HCC) Diabetic neuropathy (HCC) Diarrhea Dry eye Edema of lower extremity Essential hypertension Fibromyositis GERD (gastroesophageal reflux disease) Glossodynia Ghanshyam's + TPO antibody Hemoptysis Hyperlipidemia Hypothyroidism IBS (irritable bowel syndrome) Ischemic heart disease Midline cystocele Pharyngitis Psoriasis with arthropathy (HCC) PTSD (post-traumatic stress disorder) Sore throat Due to Gerd Type 2 diabetes mellitus (HCC) Vitamin D deficiency Past Surgical History Past Surgical History: Procedure Laterality Date No surgical history on file Family History Family History Family history unknown: Yes Social History Social History Socioeconomic History Marital status: Legally Spouse name: Not on file Number of children: Not on file Years of education: Not on file Highest education level: Not on file Tobacco Use Smoking status: Former Smoker Smokeless tobacco: Never Used Substance and Sexual Activity Alcohol use: Never Frequency: Never Drug use: Never Comment: Not on file Allergies Allergies Allergen Reactions Bee Venom Anaphylaxis Amoxicillin-Pot Clavulanate Other (See Comments) Other (Uncoded Nonscreenable Allergen) Other (See Comments) SDS: Sodium dodecyl sulfate Amoxicillin-Pot Clavulanate Not Noted Metformin Other (See Comments) Reaction: unknown Soap Not Noted SDS: Sodium dodecyl sulfate Lactose Intolerance (Gi) Diarrhea Sulfa Antibiotics Nausea Only Intolerance No active intolerances/contraindications Medications Current Outpatient Medications on File Prior to Visit Medication Sig Dispense Refill albuterol 90 mcg/puff inhaler Inhale 2 puffs into the lungs every 4 (four) hours as nee ded for Wheezing. Alcohol Swabs 70 % PADS 1 Pad by Does not apply route as needed (To wipe area as direct ed). aspirin 81 MG tablet Take 81 mg by mouth Daily. betamethasone valerate (VALISONE) 0.1 % lotion Apply 1 Application topically 2 times da beulah. Cholecalciferol (VITAMIN D-3) 5000 units CAPS Take 5,000 Units by mouth daily. Emollient (CERAVE) CREA Apply 1 Application topically as needed (Apply a small amount t o affected area as directed for dry skin.). glucose blood test strips (CHERRY CONTOUR TEST) strip Use as directed hydrophilic ointment Apply a thin layer to the affected area of feet every morning ibuprofen (ADVIL,MOTRIN) 600 MG tablet Take 600 mg by mouth every 6 (six) hours as need ed for Pain. insulin aspart (NOVOLOG) 100 units/mL injection Inject 28 Units into the skin 3 (three) times daily before meals. Sliding scale insulin glargine (LANTUS) 100 units/mL injection (vial) Inject 72 Units into the skin 2 (two) times daily. Insulin Pen Needle (EASY TOUCH PEN NEEDLES) 32G X 4 MM MISC by Does not apply route. Ipratropium Erin HFA (ATROVENT HFA IN) AERS Inhale 1 to 2 puffs every 6 hours as nee ded for shortness of breath levothyroxine (SYNTHROID) 150 mcg tablet Take 150 mcg by mouth every morning before rubi akfast. metoprolol succinate (TOPROL-XL) 25 mg 24 hr tablet Take 25 mg by mouth daily. Misc. Throat Products (OASIS MOISTURIZING MOUTHWASH) LIQD Take 1 capful by mouth 2 time s daily. mupirocin (BACTROBAN) 2% ointment Apply a small amount in each nostril at bedtime and a pply a thin layer to the affected area four times a day as directed for infection nitroglycerin (NITROSTAT) 0.4 mg SL tablet Take 1 tablet sublingually every 5 minutes u p to 3 tablets total for chest pain. Call 911 or go to ER if not relieved. omeprazole (PRILOSEC) 20 mg capsule Take 20 mg by mouth 2 times daily. No current facility-administered medications on file prior to visit. Physical Exam Vitals:BP 128/74 | Pulse 70 | Temp 36.3 C (97.4 F) (Temporal) | Resp 12 | Ht 1.651 m (5' 5") | Wt 98.4 kg (216 lb 14.9 oz) | SpO2 95% | BMI 36.10 kg/m General: This is a well-developed,well-nurished female in no apparent distress, alert and o riented x 3. Head: Reveals normocephalic, atraumatic Eyes: Sclera anicteric, normal conjunctiva Mouth: Oropharynx is clear without obstruction. No oral lesion. Lungs: Clear to auscultation without rales or wheezes. Cardiac: Reveals regular rate and rhythm with normal S1 and S2 and no murmurs, rubs or gall ops. Abdomen: Soft and nontender without masses or organmegaly. No guarding or rebound pain. No rmoactive bowel sounds. Extremities: Without cyanosis, clubbing or edema. Neuro: Awake, alert, oriented x3. Skin: extensive psoriasis on arms and knees. Labs No results found for: WBC, HGB, HCT, MCV, LABPLAT, PLT Chemistry No results found for: NA, K, CL, CO2, GLU, BUN, CREATININE, ANIONGAP, OSMOLALITY No results found for: CALCIUM, ALKPHOS, AST, ALT, TOTALPROTEIN, ALBUMIN, GFRAA, BILITOT Imaging n/a Assessment and Plan This is a 63 year old woman with DM, obesity, history of smoking, CAD, hiatal hernia, who p resents for diarrhea, fecal incontinence, sore throat, dysphagia with chest pain. 1. Diarrhea with full incontinence of feces She has obviously identified that diary is a trigger for diarrhea, yet she continues to con sume it. I stressed that she needs to either eliminate dairy or take lactaid. She is diabetic and may have diabetic diarrhea. Other considered causes could be overflow d iarrhea, microscopic colitis, IBS. Less likely IBD given reportedly normal colonoscopy. -cut out dairy or use lactaid -get last colonoscopy report -start metamucil, if symptoms worsen, would stop metamucil and start colestipol -will decide on need for repeat colonoscopy depending on my review of her prior colonoscopy from 2018 2. GERD, voice changes, dysphagia with chest pain I suspect that she has chronic GERD, and may have esophageal spasm vs esophagitis. Her thro at pain and voice changes warrant evaluation by ENT given her history of smoking, but could also be due to GERD. -recommend referral for ENT evaluation -At this time I recommend that upper endoscopy or esophagogastroduodenoscopy be performed f or further evaluation. Indications risks benefits and possible complications were discussed with the patient who wished to proceed with EGD at this time. -recommend MAC sedation given DOMINGO, which puts her at increased risk for sedation related co mplications ICD-10-CM ICD-9-CM 1. Irritable bowel syndrome with both constipation and diarrhea K58.2 564.1 2. Gastroesophageal reflux disease, esophagitis presence not specified K21.9 530.81 Case Re quest - [place]/ENDO/ASC/OB: EGD, MANOMETRY ESOPHAGEAL 3. Hoarseness R49.0 784.42 Case Request - OR/ENDO/ASC/OB: EGD, MANOMETRY ESOPHAGEAL 4. Sore throat J02.9 462 Case Request - OR/ENDO/ASC/OB: EGD, MANOMETRY ESOPHAGEAL 5. Epigastric pain R10.13 789.06 Case Request - [place]/ENDO/ASC/OB: EGD, MANOMETRY ESOPHAGEAL 6. Obstructive sleep apnea syndrome G47.33 327.23 Case Request - [place]/ENDO/ASC/OB: EGD, MANOM ETRY ESOPHAGEAL Follow up: Return in about 6 weeks (around 11/27/2018). CC: VINOD Potter [id number] [place] [address] [id number] [place] [address] Portions of this chart may have been created with [employer] voice recognition software. Occasi onal wrong-word or sound-alike substitutions may have occurred due to the inherent mello itations of voice recognition software. Please read the chart carefully and recognize, using context, where these substitutions have occurred documented in this encounter Plan of Treatment Not on filedocumented as of this encounter Visit Diagnoses + + | Diagnosis | + + | Irritable bowel syndrome with both constipation and diarrhea - Primary | + + | Gastroesophageal reflux disease, esophagitis presence not specified | + + | Hoarseness Dysphonia | + + | Sore throat Acute pharyngitis | + + | Epigastric pain Abdominal pain, epigastric | + + | Obstructive sleep apnea syndrome Obstructive sleep apnea (adult) (pediatric) | + + documented in this encounter Additional Health Concerns + + + + | Infection | Noted Time | Resolved Time | + + + + | Methicillin-resistant Staphylococcus aureus | 05/17/2013 3:06 PM | | | | PST | | + + + + documented as of this encounter
--- OUTSIDE RECORDS SUMMARY | ~2019-07-05 | XMS | Encounter Summary ---
Demographics + + + | Address | [address] | | | [place] [address] | + + + | Home Phone | | + + + | Preferred Language | Unknown | + + + | Marital Status | Legally | + + + | Rastafari Affiliation | Unknown | + + + | Race | Unknown | + + + | Ethnic Group | Unknown | + + + Author + + + | Author | [facility] | | | and [place] | + + + | Organization | [facility] | | | [...] Team Providers + +------+ + | Care Net Mvc Developer Name | Role | Phone | + +------+ + | Deloris Tolbert | PCP | | + +------+ + Reason for Visit Auth/Cert +--------+--------+ + + + + | Status | Reason | Specialty | Diagnoses / | Referred By | Referred To | | | | | Procedures | Contact | Contact | +--------+--------+ + + + + | | | | Diagnoses | | Jade, | | | | | Hoarseness | | Camden Hines, | | | | | | | MD [address] | | | | Gastroesopha | | [address] | | | | | geal reflux | | [place], | | | | | disease, | | [place] [address] | | | | | esophagitis | | Phone: | | | | | presence not | | [phone] | | | | | specified | | Fax: | | | | | Sore throat | | [phone] | | | | | Epigastric | | | | | | | pain | | | | | | | Obstructive | | | | | | | sleep apnea | | | | | | | syndrome | | | | | | | Procedures | | | | | | | NE | | | | | | | ESOPHAGOGAST | | | | | | | RODUODENOSCO | | | | | | | PY TRANSORAL | | | | | | | DIAGNOSTIC | | | | | | | NE EGD | | | | | | | TRANSORAL | | | | | | | BIOPSY | | | | | | | SINGLE/MULTI | | | | | | | PLE NE | | | | | | | GASTRIC | | | | | | | MOTILITY | | | | | | | STUDY NE | | | | | | | ANESTHESIA | | | | | | | UPPER GI | | | | | | | ENDOSCOPIC | | | | | | | PX NOS EGD | | | | | | | MANOMETRY | | | | | | | ESOPHAGEAL | | | +--------+--------+ + + + + Encounter Details +--------+ + + + + | Date | Type | Department | Care Team | Description | +--------+ + + + + | 11/07/ | Hospital | [facility] | Camden Gan | Hoarseness; | | 2018 | Encounter | [facility] | MD [place] [address] | Gastroesophageal | | | | [address] | [facility] | reflux disease, | | | | [place] | [place] [address] | esophagitis presence | | | | [id number] | [phone] | not specified; Sore | | | | [phone] | | throat; Epigastric | | | | | | pain; Esophageal | | | | | | dysphagia | +--------+ + + + + Social [...] + + + | Blood Pressure | 137/73 | 11/07/2018 12:30 PM | | | | | PDT | | + + + + + | Pulse | 66 | 11/07/2018 12:30 PM | | | | | PDT | | + + + + + | Temperature | 36.3 C (97.3 F) | 11/07/2018 12:17 PM | | | | | PDT | | + + + + + | Respiratory Rate | 20 | 11/07/2018 12:17 PM | | | | | PDT | | + + + + + | Oxygen Saturation | 96% | 11/07/2018 12:30 PM | | | | | PDT | | + + + + + | Inhaled Oxygen | - | - | | | Concentration | | | | + + + + + | Weight | 96.9 kg (213 lb 10 | 11/07/2018 9:30 AM | | | | oz) | PDT | | + + + + + | Height | 162.6 cm (5' 4") | 11/07/2018 9:30 AM | | | | | PDT | | + + + + + | Body Mass Index | 36.67 | 11/07/2018 9:30 AM | | | | | PDT | | + + + + + documented in this encounter Medications at Time of Discharge + + + +---------+ + + | Medication | Sig | Dispensed | Refills | Start | End Date | | | | | | Date | | + + + +---------+ + + | albuterol 90 | Inhale 2 puffs into | | 0 | | | | mcg/puff inhaler | the lungs every 4 | | | | | | | (four) hours as | | | | | | | needed for Wheezing. | | | | | + + + +---------+ + + | Alcohol Swabs 70 % | 1 Pad by Does not | | 0 | | | | PADS | apply route as | | | | | | | needed (To wipe area | | | | | | | as directed). | | | | | + + + +---------+ + + | aspirin 81 MG | Take 81 mg by mouth | | 0 | | | | tablet | Daily. | | | | | + + + +---------+ + + | betamethasone | Apply 1 Application | | 0 | | | | valerate (VALISONE) | topically 2 times | | | | | | 0.1 % lotion | daily. | | | | | + + + +---------+ + + | Cholecalciferol | Take 5,000 Units by | | 0 | | | | (VITAMIN D-3) 5000 | mouth daily. | | | | | | units CAPS | | | | | | + + + +---------+ + + | Emollient (CERAVE) | Apply 1 Application | | 0 | | | | CREA | topically as needed | | | | | | | (Apply a small | | | | | | | amount to affected | | | | | | | area as directed for | | | | | | | dry skin.). | | | | | + + + +---------+ + + | glucose blood | Use as directed | | 0 | 11/25/19 | | | test strips (CHERRY | | | | 12 | | | CONTOUR TEST) strip | | | | | | + + + +---------+ + + | hydrophilic | Apply a thin layer | | 0 | 09/14/20 | | | ointment | to the affected area | | | 12 | | | | of feet every | | | | | | | morning | | | | | + + + +---------+ + + | ibuprofen | Take 600 mg by mouth | | 0 | | | | (ADVIL,MOTRIN) 600 | every 6 (six) hours | | | | | | MG tablet | as needed for Pain. | | | | | + + + +---------+ + + | insulin aspart | Inject 28 Units into | | 0 | | | | (NOVOLOG) 100 | the skin 3 (three) | | | | | | units/mL injection | times daily before | | | | | | | meals. Sliding scale | | | | | + + + +---------+ + + | insulin glargine | Inject 72 Units into | | 0 | | | | (LANTUS) 100 | the skin 2 (two) | | | | | | units/mL injection | times daily. | | | | | | (vial) | | | | | | + + + +---------+ + + | Insulin Pen Needle | by Does not apply | | 0 | | | | (EASY TOUCH PEN | route. | | | | | | NEEDLES) 32G X 4 MM | | | | | | | MISC | | | | | | + + + +---------+ + + | Ipratropium | AERS Inhale 1 to 2 | | 0 | 11/25/19 | | | [place] HFA | puffs every 6 hours | | | 12 | | | (ATROVENT HFA IN) | as needed for | | | | | | | shortness of breath | | | | | + + + +---------+ + + | levothyroxine | Take 150 mcg by | | 0 | | | | (SYNTHROID) 150 mcg | mouth every morning | | | | | | tablet | before breakfast. | | | | | + + + +---------+ + + | metoprolol | Take 25 mg by mouth | | 0 | | | | succinate | daily. | | | | | | (TOPROL-XL) 25 mg 24 | | | | | | | hr tablet | | | | | | + + + +---------+ + + | Misc. Throat | Take 1 capful by | | 0 | | | | Products (OASIS | mouth 2 times daily. | | | | | | MOISTURIZING | | | | | | | MOUTHWASH) LIQD | | | | | | + + + +---------+ + + | mupirocin | Apply a small amount | | 0 | 09/14/20 | | | (BACTROBAN) 2% | in each nostril at | | | 12 | | | ointment | bedtime and apply a | | | | | | | thin layer to the | | | | | | | affected area four | | | | | | | times a day as | | | | | | | directed for | | | | | | | infection | | | | | + + + +---------+ + + | nitroglycerin | Take 1 tablet | | 0 | 11/25/19 | | | (NITROSTAT) 0.4 mg | sublingually every 5 | | | 12 | | | SL tablet | minutes up to 3 | | | | | | | tablets total for | | | | | | | chest pain. Call 911 | | | | | | | or go to ER if not | | | | | | | relieved. | | | | | + + + +---------+ + + | omeprazole | Take 20 mg by mouth | | 0 | 11/25/19 | | | (PRILOSEC) 20 mg | 2 times daily. | | | 12 | | | capsule | | | | | | + + + +---------+ + + documented as of this encounter Plan of Treatment Not on filedocumented as of this encounter Procedures + +--------+ + + + | Procedure Name | Priori | Date/Time | Associated Diagnosis | Comments | | | ty | | | | + +--------+ + + + | SURGICAL PATHOLOGY | Routin | 11/07/2018 | | Results for this | | EXAM | e | 11:36 AM | | procedure are in the | | | | PDT | | results section. | + +--------+ + + + | MANOMETRY ESOPHAGEAL | | 11/07/2018 | Hoarseness | | | | | 11:27 AM | Gastroesophageal | | | | | PDT | reflux disease, | | | | | | esophagitis presence | | | | | | not specified Sore | | | | | | throat Epigastric | | | | | | pain Obstructive | | | | | | sleep apnea syndrome | | + +--------+ + + + | EGD | | 11/07/2018 | Hoarseness | | | | | 11:27 AM | Gastroesophageal | | | | | PDT | reflux disease, | | | | | | esophagitis presence | | | | | | not specified Sore | | | | | | throat Epigastric | | | | | | pain Obstructive | | | | | | sleep apnea syndrome | | + +--------+ + + + | EGD | Routin | 11/07/2018 | | Results for this | | | e | 11:16 AM | | procedure are in the | | | | PDT | | results section. | + +--------+ + + + | POC GLUCOSE | Routin | 11/07/2018 | | Results for this | | | e | 9:58 AM | | procedure are in the | | | | PDT | | results section. | + +--------+ + + + documented in this encounter Results Surgical Pathology Exam (11/07/2018 11:36 AM PDT) + + | Specimen | + + | | + + + + + | Narrative | Performed At | + + + | SPECIMEN(S): A DUODENAL BIOPSIES SPECIMEN(S): B GASTRIC BIOPSIES | [facility] | | SPECIMEN(S): C ESOPHAGUS BIOPSY AT 40 CM SPECIMEN(S): D MID ESOPHAGUS | [facility] | | SPECIMEN SOURCE: A. DUODENAL BIOPSIES B. GASTRIC BIOPSIES C. | | | ESOPHAGUS BIOPSY AT 40 CM D. MID ESOPHAGUS CLINICAL HISTORY: | | | EGD, manometry esophageal. Rule out Leyva's, rule out EOE. R49.0 | | | (hoarseness), K21.9 (gastroesophageal reflux disease without | | | esophagitis), J02.9 (acute pharyngitis, unspecified), R10.13 | | | (epigastric pain), G47.33 (obstructive sleep apnea [adult] | | | [pediatric]) MICROSCOPIC DESCRIPTION: Histologic sections of all | | | submitted blocks are examined by light microscopy. These findings, | | | together with the gross examination, support the pathologic diagnosis. | | | B. A Helicobacter pylori immunostain is performed on (B1) with | | | appropriate positive and negative controls and is negative for | | | organisms. [facility] FINAL PATHOLOGIC DIAGNOSIS: A. Duodenal | | | biopsies: - Benign duodenal mucosa with focal Beverly's gland | | | hyperplasia and mild acute duodenitis. - Preserved villous | | | architecture, negative for significantly increased epithelial | | | lymphocytes. B. Gastric biopsies: - Focal mild chronic | | | gastritis. - Helicobacter pylori immunostain is negative for | | | organisms. C. Esophagus biopsy at 40 cm: - Gastroesophageal | | | junction with reactive epithelial features and moderate chronic | | | inflammation. - Negative for specialized intestinal (goblet cell) | | | metaplasia or dysplasia. D. Mid esophagus, biopsy: - Benign | | | esophageal mucosa, negative for significantly increased epithelial | | | eosinophils. [facility]:C2NR GROSS DESCRIPTION: Four specimens | | | are received in four containers, labeled "MD." A. The specimen, | | | labeled "MD, duodenal biopsies," is received in formalin and consists | | | of five garcia-white soft tissue fragments ranging from 0.2 to 0.4 cm in | | | greatest dimension. The specimen is entirely submitted in cassette | | | (A1). B. The specimen, labeled "MD, gastric biopsies," is | | | received in formalin and consists of three garcia-white soft tissue | | | fragments ranging from 0.3 to 0.4 cm in greatest dimension. The | | | specimen is entirely submitted in cassette (B1). C. The | | | specimen, labeled "MD, esophagus biopsy at 40 cm," is received in | | | formalin and consists of two garcia-white soft tissue fragments ranging | | | from 0.2 to 0.3 cm in greatest dimension. The specimen is entirely | | | submitted in cassette (C1). D. The specimen, labeled "MD, mid | | | esophagus," is received in formalin and consists of four garcia-white | | | soft tissue fragments ranging from 0.2 to 0.4 cm in greatest | | | dimension. The specimen is entirely submitted in cassette (D1). | | | [place] (under the direct supervision of a pathologist) The Gross | | | Description was prepared using a voice recognition system. The | | | report was reviewed for accuracy; however, sound-alike word errors, | | | addition and/or deletions may occur. If there is any question about | | | this report, please contact Client Services. ADDITIONAL NOTES: | | | Immunohistochemical and/or in situ hybridization studies were | | | performed on this case with the appropriate positive controls that | | | react as expected. This test was developed and its performance | | | characteristics determined by [facility]. It has not been | | | cleared or approved by the U.S. Food and Drug Administration. The | | | FDA has determined that such clearance or approval is not necessary. | | | This test is used for clinical purposes. It should not be regarded | | | as investigational or for research. [facility] is certified | | | under the Clinical Laboratory Improvement Amendments of 1988 (CLIA) | | | as qualified to perform high complexity clinical laboratory testing. | | | PERFORMING LABORATORY: The technical component was performed by | | | [facility], [address] [place] [address] (Medical | | | Director: Patricia Ovalles MD; CLIA# [id number]). Professional | | | interpretation was performed by [facility] [place] | | | [facility], [address] [place] [address] | | | [id number] (Immunopathologist: Franck Perez M.D.). Diagnostician: | | | Franck Perez MD Pathologist Electronically Signed 11/08/2018 | | | | | + + + + +---------+ + + | Performing | Address | City/State/Zipcode | Phone Number | | Organization | | | | + +---------+ + + | [facility] | | | | | [facility] | | | | + +---------+ + + EGD (11/07/2018 11:16 AM PDT) + + | Specimen | + + | | + + + + ----+ | Narrative | Performed At | + + ----+ | | [facility] | | GastroenterologyPatient Name: Albert Melgaredairam Date: 11/07/2018 | [facility] | | 11:16 AMMRN: [id number] #: [id number] of : | | | 4Admit Type: AmbulatoryAge: 63Room: Endo Room 2Gender: | | | FemaleNote Status: FinalizedAttending MD: CAMDEN GAN , | | | MDProcedure: Upper GI endoscopyIndications: | | | Epigastric abdominal pain, Dysphagia, HeartburnProviders: | | | CAMDEN GAN MD, Sandy Morales RN, Sarahi | | | REGLA Maya, Rosana Traore, Trauma Surgeon, Andrews Marmolejo | | | DO Vee (Anesthesia Staff)Referring MD: | | | Deloris Tolbert (Referring )Medicines: Monitored | | | Anesthesia CareComplications: No immediate | | | complications.Procedure: Pre-Anesthesia Assessment: - | | | Prior to the procedure, a History and Physical was performed, and | | | patient medications and allergies were reviewed. The patient is | | | competent. The risks and benefits of the procedure and the | | | sedation options and risks were discussed with the patient. All | | | questions were answered and informed consent was obtained. | | | Patient identification and proposed procedure were verified by | | | the physician, the nurse and the anesthesiologist in the | | | pre-procedure area in the procedure room. Mental Status | | | Examination: alert and oriented. Airway Examination: Mallampati | | | Class II (the uvula but not tonsillar pillars visualized). | | | Respiratory Examination: clear to auscultation. CV Examination: | | | normal. Prophylactic Antibiotics: The patient does not require | | | prophylactic antibiotics. Prior Anticoagulants: The patient | | | has taken no previous anticoagulant or antiplatelet agents. ASA | | | Grade Assessment: III - A patient with severe systemic | | | disease. After reviewing the risks and benefits, the patient | | | was deemed in satisfactory condition to undergo the procedure. The | | | anesthesia plan was to use monitored anesthesia care (MAC). | | | Immediately prior to administration of medications, the patient | | | was re-assessed for adequacy to receive sedatives. The heart | | | rate, respiratory rate, oxygen saturations, blood pressure, | | | adequacy of pulmonary ventilation, and response to care were | | | monitored throughout the procedure. The physical status of the | | | patient was re-assessed after the procedure. After obtaining | | | informed consent, the endoscope was passed under direct vision. | | | Throughout the procedure, the patient's blood pressure, pulse, | | | and oxygen saturations were monitored continuously. The Endoscope was | | | introduced through the mouth, and advanced to the second part | | | of duodenum. The upper GI endoscopy was accomplished without | | | difficulty. The patient tolerated the procedure well.Findings: | | | The upper third of the esophagus and middle third of the | | | esophagus were normal. Biopsies were taken with a cold forceps | | | for histology. [place] of salmon-colored mucosa were present at | | | 40 cm. No other visible abnormalities were present. The maximum | | | longitudinal extent of these esophageal mucosal changes was | | | 0.4 cm in length. Biopsies were taken with a cold forceps for | | | histology. The Z-line was irregular and was found 41 cm from the | | | incisors. Diffuse mildly erythematous mucosa without bleeding | | | was found in the gastric antrum. Biopsies were taken with a | | | cold forceps for histology. The cardia, gastric fundus and | | | gastric body were normal. The cardia and gastric fundus were | | | normal on retroflexion. The second portion of the duodenum was | | | normal. Biopsies were taken with a cold forceps for histology. | | | Patchy granular mucosa was found in the duodenal bulb. Biopsied, | | | included with above. An esophageal manometry catheter | | | was placed through the nares into the esophagus. Under | | | endoscopic guidance, the tube was advanced into the stomach. | | | Placement was confirmed by scope visualization.Impression: - | | | Normal upper third of esophagus and middle third of esophagus. | | | Biopsied. 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 Biopsied. - Z-line irregular, 41 cm | | | from the incisors. - Erythematous mucosa in the antrum. | | | Biopsied. - Normal cardia, gastric fundus and gastric body. | | | - Normal duodenal bulb and second portion of the duodenum. | | | Biopsied. - Granular mucosa in the duodenal bulb. Included with | | | duodenal biopsies.Recommendation: - Await pathology results. | | | - Resume previous diet. - Continue present medications. | | | - Perform routine esophageal manometry today.CAMDEN GAN, | | | 11/07/2018 11:57:13 AMThis report has been signed | | | electronically.Number of Addenda: 0Note Initiated On: 11/07/2018 11:16 | | | AMScope In: 11:35:32 AMScope Out: 11:44:59 AM [facility]. | | | [facility], [address] [facility], [place] [address] | | | [phone] | | | - Normal duodenal bulb and second portion of the duodenum. Biopsied. | | | - Granular mucosa in the duodenal bulb. Included with duodenal biopsies. | | |Recommendation: | | | - Await pathology results. | | | - Resume previous diet. | | | - Continue present medications. | | | - Perform routine esophageal manometry today. | | |CAMDEN GAN MD | | |11/07/2018 11:57:13 AM | | |This report has been signed electronically. | | |Number of Addenda: 0 | | |Note Initiated On: 11/07/2018 11:16 AM | | |Scope In: 11:35:32 AM | | |Scope Out: 11:44:59 AM | | | [facility], [address], [place] | | | [address] | | + + ----+ + +---------+ + + | Performing | Address | City/State/Zipcode | Phone Number | | Organization | | | | + +---------+ + + | [facility] | | | | + +---------+ + + POC Glucose (11/07/2018 9:58 AM PDT) + +---------+ + + + | Component | Value | Ref Range | Performed | Pathologist | | | | | At | Signature | + +---------+ + + + | Glucose, | 136 (H) | 70 - 109 mg/dL | [facility] | [facility] | | | | [facility] | [facility] - | | | | | | LAB[facility]ATORY | | + +---------+ + + + + + | Specimen | + + | Blood | + + + + + + + | Performing | Address | City/State/Zipcode | Phone Number | | Organization | | | | + + + + + | [facility] | [address] | [place] | [phone] | | [facility] | | [address] | | | - LABORATORY | | | | + + + + + documented in this encounter Visit Diagnoses + + | Diagnosis | + + | Hoarseness Dysphonia | + + | Gastroesophageal reflux disease, esophagitis presence not specified | + + | Sore throat Acute pharyngitis | + + | Epigastric pain Abdominal pain, epigastric | + + | Esophageal dysphagia Dysphagia, pharyngoesophageal phase | + + | Obstructive sleep apnea syndrome Obstructive sleep apnea (adult) (pediatric) | + + documented in this encounter Admitting Diagnoses + + | Diagnosis | + + | Obstructive sleep apnea syndrome Obstructive sleep apnea (adult) (pediatric) | + + | Hoarseness Dysphonia | + + | Gastroesophageal reflux disease, esophagitis presence not specified | + + | Sore throat Acute pharyngitis | + + | Epigastric pain Abdominal pain, epigastric | + + documented in this encounter Administered Medications + +--------+---------+------+------+------+ | Medication Order | MAR | Action | Dose | Rate | Site | | | Action | Date | | | | + +--------+---------+------+------+------+ + +---+ | albuterol 2.5 mg/3 mL nebulizer | | | solution 2.5 mg 2.5 mg, | | | Nebulization, ONCE PRN, Wheezing, | | | Starting Mon11/07/18 at 1210, | | | For 1 dose, Notify anesthesia if | | | patient is wheezing and does not | | | have a history of asthma or COPD | | | or current smoking., | | | Recovery/Phase I | | + +---+ | | | + +---+ | dextrose 50% injection 12.5-25 | | | g 12.5-25 g, Intravenous, EVERY | | | 15 MIN PRN, Low Blood Sugar, Give | | | 12.5g (25 mL) IV if blood | | | glucose 50-69 mg/dL. Give 25g | | | (50 mL) IV if blood glucose < 50, | | | Starting Mon11/07/18 at 1025, | | | Repeat in 15 min if blood glucose | | | remains < 70 mg/dL. Repeat | | | blood glucose in 30 min once | | | blood glucose > 70., Pre-op | | + +---+ | | | + +---+ | dextrose 50% injection 12.5-25 | | | g 12.5-25 g, Intravenous, EVERY | | | 15 MIN PRN, Low Blood Sugar, For | | | hypoglycemia. Give 12.5g (25ml) | | | IV if blood glucose 50-69 | | | mg/dL. Give 25g (50ml) IV if | | | blood glucose < 50, Starting Wed | | | 11/07/18 at 1210, Give over 2 min. | | | Repeat in 15 min if blood | | | glucose remains < 70 mg/dL. | | | Repeat blood glucose in 30 min | | | once blood glucose > 70., | | | Recovery/Phase I | | + +---+ | | | + +---+ + +---------+ +---+---+---+ | lactated ringers (LR) infusion | New Bag | 11/08/19 | | | | | at 10-100 mL/hr, Intravenous, | | 19 11:15 | | | | | CONTINUOUS, Starting 11/07/18 | | AM PDT | | | | | at 1045, TKO., Pre-op | | | | | | + +---------+ +---+---+---+ + +---+ | | | + +---+ | lactated ringers (LR) infusion | | | at 100 mL/hr, Intravenous, | | | CONTINUOUS, Starting Mon11/07/18 | | | at 1045, Pre-op | | + +---+ | | | + +---+ | ondansetron (ZOFRAN) injection | | | 4 mg 4 mg, Intravenous, ONCE | | | PRN, Nausea, Starting Mon11/07/18 | | | at 1210, For 1 dose, | | | Recovery/Phase I | | + +---+ | | | + +---+ documented in this encounter Additional Health Concerns + + + + | Infection | Noted Time | Resolved Time | + + + + | Methicillin-resistant Staphylococcus aureus | 05/17/2013 3:06 PM | | | | PST | | + + + + documented as of this encounter
--- OUTSIDE RECORDS SUMMARY | ~2019-07-05 | XMS | Encounter Summary ---
Demographics + + + | Address | [address] | | | [place] [address] | + + + | Home Phone | | + + + | Preferred Language | Unknown | + + + | Marital Status | Legally | + + + | Jehovah'S Witness Affiliation | Unknown | + + + | Race | Unknown | + + + | Ethnic Group | Unknown | + + + Author + + + | Author | [facility] | | | and [place] | + + + | Organization | [facility] | | | and [...] Team Providers + +------+ + | Care Door To Door Selling Distributor Name | Role | Phone | + [...] | | | disease, | | [place] [address] | | | | | esophagitis | | Phone: | | | | | presence not | | [phone] | | | | | specified | | Fax: | | | | | Sore throat | | [phone] | | | | | Epigastric | | | | | | | pain | | | | | | | Obstructive | | | | | | | sleep apnea | | | | | | | syndrome | | | | | | | Procedures | | | | | | | [place] | | | | | | | ESOPHAGOGAST | | | | | | | RODUODENOSCO | | | | | | | PY TRANSORAL | | | | | | | DIAGNOSTIC | | | | | | | [place] EGD | | | | | | | TRANSORAL | | | | | | | BIOPSY | | | | | | | SINGLE/MULTI | | | | | | | PLE [place] | | | | | | | GASTRIC | | | | | | | MOTILITY | | | | | | | STUDY [place] | | | | | | | [...] + + | 11/07/ | Hospital | [facility] | Camden Gan | Hoarseness; | | 2018 | Encounter | [facility] | MD [address] | Gastroesophageal | | | | [address] | [facility] | reflux disease, | | | | [place] | [place] [address] | esophagitis presence | | | | [address] | [phone] | not specified; Sore | | | | [phone] | | throat; Epigastric | | | [...] | 0 | 11/25/19 | | | [place] [facility] | puffs every 6 hours | [...] is negative for | | | organisms. [facility] FINAL PATHOLOGIC DIAGNOSIS: A. Duodenal | | [...] significantly increased epithelial | | | eosinophils. [facility]:C2NR GROSS DESCRIPTION: Four specimens | | | [...] performance | | | characteristics determined by [email or web address]. It has not been | | | cleared or approved by the U.S. Food and Drug Administration. The | | | FDA has determined that such clearance or approval is not necessary. | | | This test is used for clinical purposes. It should not be regarded | | | as investigational or for research. [email or web address] is certified | | | under the Clinical Laboratory Improvement Amendments of 1988 (CLIA) | | | as qualified to perform high complexity clinical laboratory testing. | | | PERFORMING LABORATORY: The technical component was performed by | | | [email or web address], [address] [place] [address] (Medical | | | Director: Patricia Ovalles MD; CLIA# [id number]). Professional | | | interpretation was performed by [email or web address] Coy | | | [facility], [address] [place] [address] | | | [id number] (Steel Erecting Pusher: Franck Perez M.D.). Diagnostician: | | | [...] 11/07/2018 | PROVATION | | 11:16 AMMRN: [id number] #: [id number] of : | | | 4Admit Type: AmbulatoryAge: 63Room: Endo Room 2Gender: | | | FemaleNote Status: FinalizedAttending MD: CAMDEN GAN , | | | MDProcedure: Upper GI endoscopyIndications: | | | Epigastric abdominal pain, Dysphagia, HeartburnProviders: | | | CAMDEN GAN MD, Sandy Morales RN, Sarahi | | | REGLA Maya, Rosana Traore, Photographic Processor, Andrews Marmolejo | | | DO Vee [...] of esophagus. | | | Biopsied. - Hixton-colored mucosa suspicious for short-segment | | | [...] AMScope In: 11:35:32 AMScope Out: 11:44:59 AM [facility]. | | | [facility], [address] [facility], [place] [address] | | | [phone] | | | - Normal duodenal bulb [...] |Scope Out: 11:44:59 AM | | | [facility], [address], [place] | | | [address] | | + + ----+ + +---------+ [...] + | [facility] | [address] | [place] | [phone] | | [facility] | | [address] | | | - LABORATORY | | [...]
--- OUTSIDE RECORDS SUMMARY | ~2019-07-05 | XMS | Encounter Summary ---
Demographics + + + | Address | [address] | | | [place] [address] | + + + | Home Phone | | + + + | Preferred Language | Unknown | + + + | Marital Status | Single | + + + | Zoroastrian Affiliation | BAP | + + + | Race | White | + + + | Ethnic Group | Not or | + + + Author + + + | Author | [facility] | + + + | Organization | [facility] | + + + | Address | Unknown | + + + | Phone | Unavailable | + + + Support + + +---------+ + | Name | Relationship | Address | Phone | + + +---------+ + | Raad Steward | ECON | Unknown | | + + +---------+ + Care Team Providers + +------+ + | Care Investment Trader Name | Role | Phone | + +------+ + | Isai Emersona Doug ANGLINP | PCP | | + +------+ + Encounter Details +--------+ + + + + | Date | Type | Department | Care Team | Description | +--------+ + + + + | 04/05/ | Hospital | Diagnostic | | | | 2010 | Encounter | Radiology at [facility] | | | | | | [address] | | | | | | Loop Physician's | | | | | | [place], [facility] Floor | | | | | | [place], [place] | | | | | | [address] | | | | | | [phone] | | | +--------+ + + + [...] + + documented as of this encounter Medications at Time of Discharge + + + +---------+ + + | Medication | Sig | Dispensed | Refills | Start | End Date | | | | | | Date | | + + + +---------+ + + | Aspirin 81 mg Oral | Take 81 mg by mouth | | 0 | | | | Tablet | once daily. | | | | | + + + +---------+ + + | docusate sodium | Take 100 mg by mouth | | 0 | | | | 100 mg Oral Capsule | two times daily. | | | | | + + + +---------+ + + | Ergocalciferol, | Take 50,000 Units by | | 0 | | | | Vitamin D2, 50,000 | mouth. | | | | | | unit Oral Tablet | | | | | | + + + +---------+ + + | glyBURIDE 2.5 mg | Take 2.5 mg by mouth | | 0 | 04/05/19 | | | Oral Tablet | two times daily. | | | 11 | | + + + +---------+ + + | hydrocortisone 2.5 | by Topical route two | | 0 | | | | % Topical Cream | times daily. Apply | | | | | | | a thin film to | | | | | | | clean, dry skin and | | | | | | | rub in gently. | | | | | + + + +---------+ + + | Hydrophilic | by Topical route. | | 0 | | | | Topical Ointment | | | | | | + + + +---------+ + + | IPRATROPIUM | Inhale. | | 0 | | | | BROMIDE INHL | | | | | | + + + +---------+ + + | levothyroxine 150 | Take 150 mcg by | | 0 | | | | mcg Oral Tablet | mouth once daily. | | | | | + + + +---------+ + + | nitroglycerin 0.3 | Place 0.3 mg under | | 0 | | | | mg Sublingual | tongue every five | | | | | | Tablet, Sublingual | minutes as [...] 15 minutes. | | | | | + + + +---------+ + + | omeprazole 20 mg | Take 20 mg by mouth | | 0 | | | | Oral Capsule, | once daily. | | | | | | Delayed | | | | | | | Release(E.C.) | | | | | | + + + +---------+ + + | SALSALATE ORAL | Take by mouth. | | 0 | | | + + + +---------+ + + documented as of this encounter Plan of Treatment Not on filedocumented as of this encounter Procedures + +--------+ + + + | Procedure Name | Priori | Date/Time | Associated Diagnosis | Comments | | | ty | | | | + +--------+ + + + | X-RAY SHOULDER 3+ | Routin | 04/05/2010 | Shoulder pain | Results for this | | VIEWS LEFT | e | 1:48 PM | | procedure are in the | | | | PST | | results section. | + +--------+ + + + documented in this encounter Results X-RAY SHOULDER 3+ VIEWS LEFT (04/05/2010 1:48 PM PST) + + + + + + | Component | Value | Ref Range | Performed | Pathologist | | | | | At | Signature | + + + + + + | SHOULDER 3+ | STUDY: SHOULDER 3 VIEWS | | | | | VIEWS LEFT | LEFT 04/05/10 13:48:00 | | | | | | COMPARISON: NONE | | | | | | HISTORY: Shoulder pain. | | | | | | FINDINGS: There is a 1.4 | | | | | | x 1.4 cm lesion deep to | | | | | | the lesser tuberosity | | | | | | of thehumerus, which | | | | | | exhibits stippled | | | | | | medullary calcification. | | | | | | There isno endosteal | | | | | | scalloping or periosteal | | | | | | reaction. | | | | | | Additionally, nosoft | | | | | | tissue component or | | | | | | cortical destruction is | | | | | | seen. The bones | | | | | | areotherwise intact with | | | | | | no fracture or focal | | | | | | destruction. | | | | | | Theglenohumeral joint | | | | | | is maintained. There | | | | | | are no soft | | | | | | tissueabnormalities. | | | | | | IMPRESSION: Low grade | | | | | | chondroid lesion deep to | | | | | | the lesser tuberosity | | | | | | of thehumerus. I have | | | | | | personally viewed this | | | | | | procedure/exam and | | | | | | reviewed this report. | | | | | | Author: RENÉE CEBALLOS, | | | | | | MDReviewer: TAMICA STINSON, | | | | | | [place] STATUS FINAL / . | | | | | | TAMICA STINSON | | | | + + + + + + + + | Specimen | + + | | + + + +---------+ + + | Performing | Address | City/State/Zipcode | Phone Number | | Organization | | | | + +---------+ + + | [facility]PARTMENT OF | | | | | RADIOLOGY | | | | + +---------+ + + documented in this encounter Visit Diagnoses + + | Diagnosis | + + | Shoulder pain Pain in joint, shoulder region | + + documented in this encounter"
--- OUTSIDE RECORDS SUMMARY | ~2019-07-05 | XMS | Encounter Summary ---
Demographics + + + | Address | [address] | | | [place] [address] | + + + | Home Phone | | + + + | Preferred Language | Unknown | + + + | Marital Status | Legally | + + + | Adventism Affiliation | Unknown | + + + | Race | Unknown | + + + | Ethnic Group | Unknown | + + + Author + + + | Author | [facility] | | | and [place] | + + + | Organization | [facility] | | | [...] Team Providers + +------+ + | Care Electrical Engineering Manager Name | Role | Phone | [...] + + | 11/05/ | Telephone | [facility] | Camden Hansen | Procedure (EGD | | 2019 | | GASTROENTEROLOGY | MD [address] | instructions) | | | | [address] | [address] | | | | | [address], [place] | [place] [address] | | | | | [address] | [phone] | | | | | [phone] | | | +--------+ + + + [...]
--- OUTSIDE RECORDS SUMMARY | ~2019-07-05 | XMS | Encounter Summary ---
Demographics + + + | Address | [address] | | | [place] [address] | + + + | Home Phone | | + + + | Preferred Language | Unknown | + + + | Marital Status | Single | + + + | Pentecostalism Affiliation | BAP | + + + | Race | White | + + + | Ethnic Group | Not or | + + + Author + + + | Author | [facility] | + + + | Organization | [facility] | + + + | Address | Unknown | + + + | Phone | Unavailable | + + + Support + + +---------+ + | Name | Relationship | Address | Phone | + + +---------+ + | Raad Steward | ECON | Unknown | | + + +---------+ + Care Team Providers + +------+ + | Care Group Captain Name | Role | Phone | + +------+ + | Moni Erwin MD | PCP | | + +------+ + Encounter Details +--------+ + + + + | Date | Type | Department | Care Team | Description | +--------+ + + + + | 04/21/ | Spool Cleaner | Orthopaedics at | Anna Olivarez, | Enchondroma (Primary | | 2011 | | [facility] [address] | [address] | Dx) | | | | [address] | [facility] [place] | | | | | Mailcode: [id number] | [address] | | | | | Phys[facility] | [phone] | | | | | [place], [place] | | | | | | [address] | | | | | | [phone] | | | +--------+ + + + [...]
--- OUTSIDE RECORDS SUMMARY | ~2019-07-05 | XMS | Encounter Summary ---
Demographics + + + | Address | [address] | | | [place] [address] | + + + | Home Phone | | + + + | Preferred Language | Unknown | + + + | Marital Status | Single | + + + | Jehovah'S Witness Affiliation | BAP | + + + [...] Team Providers + +------+ + | Care Pl Sql Developer Name | Role | Phone | + +------+ + | Elaina Emerson LUMBER RACKER | PCP | | + +------+ + Encounter Details +--------+ + + + + | Date | Type | Department | Care Team | Description | +--------+ + + + + | 04/05/ | Decorating Machine Operator | Orthopaedics at | Anna Olivarez, | Shoulder pain | | 2010 | | [facility] [address] | MD [address] | (Primary Dx) | | | | [address] | [place], [place] | | | | | Mailcode: [id number] | [address] | | | | | Phys[facility] | [phone] | | | | | [place], [place] | | | | | | [address] | | | | | | [phone] | | | +--------+ + + + [...] STINSON, | | | | | | M.DMj STATUS FINAL / | | | | | | TAMICA [...] Diagnosis | + + | Shoulder pain - Primary Pain in joint, shoulder region | + + documented in this encounter"
--- OUTSIDE RECORDS SUMMARY | ~2019-07-05 | XMS | Encounter Summary ---
Demographics + + + | Address | [address] | | | [place] [address] | + + + | Home Phone | | + + + | Preferred Language | Unknown | + + + | Marital Status | Legally | + + + | Baptist Affiliation | Unknown | + + + | Race | Unknown | + + + | Ethnic Group | Unknown | + + + Author + + + | Author | [facility] | | | and [place] | + + + | Organization | [facility] | | | and [...] Team Providers + +------+ + | Care Fox Farmer Name | Role | Phone | + +------+ + | Deloris Tolbert | PCP | | + +------+ + Reason for Visit + + + | Reason | Comments | + + + | Procedure | confirmation to [place] | + + + Encounter Details +--------+ + + + + | Date | Type | Department | Care Team | Description | +--------+ + + + + | 10/30/ | Telephone | [facility] | Camden Hansen | Procedure | | 2018 | | GASTROENTEROLOGY | MD [address] | (confirmation to | | | | [address] [facility] | [facility] | Shahid) | | | | [address] [place], [place] | [place] [address] | | | | | [address] | [phone] | | | | | [phone] | | | +--------+ + + + [...]
--- OUTSIDE RECORDS SUMMARY | ~2019-07-05 | XMS | Encounter Summary ---
Demographics + + + | Address | [address] | | | [place] [address] | + + + | Home Phone | | + + + | Preferred Language | Unknown | + + + | Marital Status | Legally | + + + | Samaritan Affiliation | Unknown | + + + | Race | Unknown | + + + | Ethnic Group | Unknown | + + + Author + + + | Author | [facility] | | | and [place] | + + + | Organization | [facility] | | | and [...] Team Providers + +------+ + | Care Failure Analysis Technician Name | Role | Phone | + +------+ + | Deloris Tolbert | PCP | | + +------+ + Reason for Visit + + + | Reason | Comments | + + + | Appointment | results | + + + Encounter Details +--------+ + + + + | Date | Type | Department | Care Team | Description | +--------+ + + + + | 11/15/ | Telephone | [facility] | Camden Hansen | Appointment | | 2019 | | GASTROENTEROLOGY | MD [address] | (results) | | | | [address] [facility] | [address] [facility] | | | | | [address] [place], [place] | [place] [address] | | | | | [address] | [phone] | | | | | [phone] | | | +--------+ + + + [...]
--- OUTSIDE RECORDS SUMMARY | ~2019-07-05 | XMS | Encounter Summary ---
Demographics + + + | Address | [address] | | | [place] [address] | + + + | Home Phone | | + + + | Preferred Language | Unknown | + + + | Marital Status | Single | + + + | Hoahaoism Affiliation | BAP | + + + | Race | White | + + + | Ethnic Group | Not or | + + + Author + + + | Author | [facility] | + + + | Organization | [facility] | + + + | Address | Unknown | + + + | Phone | Unavailable | + + + Support + + +---------+ + | Name | Relationship | Address | Phone | + + +---------+ + | Raad Steward | ECON | Unknown | | + + +---------+ + Care Team Providers + +------+ + | Care Air Launch Weapons Technician Name | Role | Phone | + +------+ + | Moni Erwin MD | PCP | | + +------+ + Encounter Details +--------+ + + + + | Date | Type | Department | Care Team | Description | +--------+ + + + + | 10/04/ | Hospital | Diagnostic | | | | 2010 | Encounter | Radiology at [facility] | | | | | | [address] | | | | | | Loop Physician's | | | | | | [place], [address] Floor | | | | | | [place], [place] | | | | | | [address] | | | | | | [phone] | | | +--------+ + + + [...] + + + +---------+ + + | pioglitazone | Take 15 mg by mouth | | 0 | | | | (ACTOS) 15 mg Oral | once daily. | | | | | | Tablet | | | | [...] | X-RAY SHOULDER 3+ | Routin | 10/04/2010 | Enchondroma | Results for this | | VIEWS LEFT | e | 2:59 PM | | procedure are in the [...] | | | | | | Rosa Capps | | | | | | ChitoAuthor: Rosa | | | | | | [...] Final/Electronically | | | | | | mary beth / Rosa | | | | | | Jefry 10/04/2010 | | | | | | 17:29PM | | | | + + + + + + + + | Specimen | + + | | + + + +---------+ + + | Performing | Address | City/State/Zipcode | Phone Number | | Organization | | | | + +---------+ + + | [place] [facility]MENT OF | | | | | RADIOLOGY | | | | + +---------+ + + documented in this encounter Visit Diagnoses + + | Diagnosis | + + | Enchondroma Benign neoplasm of bone and articular cartilage, site unspecified | + + documented in this encounter"
--- OUTSIDE RECORDS SUMMARY | ~2019-07-05 | XMS | Encounter Summary ---
Demographics + + + | Address | [address] | | | [place] [address] | + + + | Home Phone | | + + + | Preferred Language | Unknown | + + + | Marital Status | Legally | + + + | Anabaptism Affiliation | Unknown | + + + | Race | Unknown | + + + | Ethnic Group | Unknown | + + + Author + + + | Author | [facility] | | | and [place] | + + + | Organization | [facility] | | | [...] Team Providers + +------+ + | Care Fisherman Helper Name | Role | Phone | + [...] + + | 11/15/ | Telephone | [facility] | Camden Hansen | Appointment | | 2019 | | GASTROENTEROLOGY | MD [address] | (results) | | | | [address] [facility] | [address] [facility] | | | | | [address] [place], [place] | [place] [address] | | | | | [address] | [phone] | | | | | [phone] | | | +--------+ + + + [...]
--- OUTSIDE RECORDS SUMMARY | ~2019-07-05 | XMS | Encounter Summary ---
Demographics + + + | Address | [address] | | | [place] [address] | + + + | Home Phone | | + + + | Preferred Language | Unknown | + + + | Marital Status | Legally | + + + | Mormon Affiliation | Unknown | + + + | Race | Unknown | + + + | Ethnic Group | Unknown | + + + Author + + + | Author | [facility] | | | and [place] | + + + | Organization | [facility] | | | and [...] Team Providers + +------+ + | Care Mft Name | Role | Phone | + [...] + + | 10/30/ | Telephone | [facility] | Camden Hansen | Procedure | | 2018 | | GASTROENTEROLOGY | MD [address] | (confirmation to | | | | [address] [facility] | [facility] | Shahid) | | | | [address] [place], [place] | [place] [address] | | | | | [address] | [phone] | | | | | [phone] | | | +--------+ + + + [...]
--- OUTSIDE RECORDS SUMMARY | ~2019-07-05 | XMS | Encounter Summary ---
Demographics + + + | Address | [address] | | | [place] [address] | + + + | Home Phone | | + + + | Preferred Language | Unknown | + + + | Marital Status | Legally | + + + | Amish Affiliation | Unknown | + + + | Race | Unknown | + + + | Ethnic Group | Unknown | + + + Author + + + | Author | [facility] | | | and [place] | + + + | Organization | [facility] | | | [...] Team Providers + +------+ + | Care Real Estate Sales Manager Name | Role | Phone | + +------+ + PCP | Unavailable | + +------+ + Encounter Details +--------+ + + + + | Date | Type | Department | Care Team | Description | +--------+ + + + + | 08/13/ | Hospital | [facility] | | | | 2010 | Encounter | [facility] | | | | | | [address] | | | | | | [place] | | | | | | [address] | | | | | | [phone] | | | +--------+ + + + [...]
--- OUTSIDE RECORDS SUMMARY | ~2019-07-05 | XMS | Encounter Summary ---
Demographics + + + | Address | [address] | | | [place] [address] | + + + | Home Phone | | + + + | Preferred Language | Unknown | + + + | Marital Status | Legally | + + + | Jewish Affiliation | Unknown | + + + | Race | Unknown | + + + | Ethnic Group | Unknown | + + + Author + + + | Author | [facility] | | | and [place] | + + + | Organization | [facility] | | | [...] Team Providers + +------+ + | Care Hose Maker Name | Role | Phone | + +------+ + PCP | Unavailable | + +------+ + Encounter Details +--------+ + + + + | Date | Type | Department | Care Team | Description | +--------+ + + + + | 08/13/ | Hospital | [facility] | | | | 2010 | Encounter | MED [facility] | | | | | | [address] | | | | | | [place] | | | | | | [address] | | | | | | [phone] | | | +--------+ + + + [...]
--- OUTSIDE RECORDS SUMMARY | ~2019-07-05 | XMS | Encounter Summary ---
Demographics + + + | Address | [address] | | | [place] [address] | + + + | Home Phone | | + + + | Preferred Language | Unknown | + + + | Marital Status | Single | + + + | Presybeterian Affiliation | BAP | + + + | Race | White | + + + | Ethnic Group | Not or | + + + Author + + + | Author | [facility] | + + + | Organization | [facility] | + + + | Address | Unknown | + + + | Phone | Unavailable | + + + Support + + +---------+ + | Name | Relationship | Address | Phone | + + +---------+ + | Raad Steward | ECON | Unknown | | + + +---------+ + Care Team Providers + +------+ + | Care Engine Cleaner Name | Role | Phone | + [...] [facility] | | | | | | [address] | | | | | | Loop Physician's | | | | | | [place], [facility] | | | | | | [place], [place] | | | | | | [address] | | | | | | [phone] | | | +--------+ + + + [...]
--- OUTSIDE RECORDS SUMMARY | ~2019-07-05 | XMS | Encounter Summary ---
Demographics + + + | Address | [address] | | | [place] [address] | + + + | Home Phone | | + + + | Preferred Language | Unknown | + + + | Marital Status | Single | + + + | Orthodox Affiliation | BAP | + + + | Race | White | + + + | Ethnic Group | Not or | + + + Author + + + | Author | [facility] | + + + | Organization | [facility] | + + + | Address | Unknown | + + + | Phone | Unavailable | + + + Support + + +---------+ + | Name | Relationship | Address | Phone | + + +---------+ + | Raad Steward | ECON | Unknown | | + + +---------+ + Care Team Providers + +------+ + | Care Wastewater Treatment Plant Supervisor Name | Role | Phone | + [...] | | | | | Humerus | [facility] | [address] | | | | | | & Fractur | [facility] [place] | | | | | | [address] | [address] | | | | | | [address] | Phone: | | | | | | [place], | [phone] | | | | | | [place] [address] | Fax: | | | | | | Phone: | [phone] | | | | | | [phone] | | | | | | | Fax: | | | | | | | [phone] | | +--------+--------+ + + + + [...] | | | | [address] | [place], [place] | | | | | Mailcode: [id number] | [address] | | | | | Physician's [address] | [phone] | | | | | [place], [place] | | | | | | [address] | | | | | | [phone] | | | +--------+---------+ + + + [...]
--- OUTSIDE RECORDS SUMMARY | ~2019-07-05 | XMS | Encounter Summary ---
Demographics + + + | Address | [address] | | | [place] [address] | + + + | Home Phone | | + + + | Preferred Language | Unknown | + + + | Marital Status | Legally | + + + | Mormonism Affiliation | Unknown | + + + | Race | Unknown | + + + | Ethnic Group | Unknown | + + + Author + + + | Author | [facility] | | | and [place] | + + + | Organization | [facility] | | | and [...] Team Providers + +------+ + | Care Print Line Tailer Name | Role | Phone | + +------+ + | Deloris Tolbert | PCP | | + +------+ + Reason for Visit + + + | Reason | Comments | + + + | Follow-up | EGD | + + + Evaluate & Treat [...] | | | | | (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 [address] | [address] | | | | | bowel | [address] | [address] [place] | | | | | syndrome) | [address] | [address] [place] | | | | | Sore throat | [place], | [place], [place] | | | | | Procedures | [place] [address] | [address] | | | | | OFFICE | Phone: | Phone: | | | | | VISIT | [phone] | [phone] | | | | | | Fax: | Fax: | | | | | | [phone] | [phone] | +--------+--------+ + + + + Encounter Details +--------+---------+ + + + | Date | Type | Department | Care Team | Description | +--------+---------+ + + + | 12/27/ | Office | [facility] | Camden Gan | Gastroesophageal | | 2019 | Visit | GASTROENTEROLOGY | MD [address] | reflux disease, | | | | [address] | [address] [place] | esophagitis presence | | | | [address], [place] | [place] [address] | not specified | | | | [address] | [phone] | (Primary Dx); | | | | [phone] | | Irritable bowel | | | | | | syndrome with both | | | | | | constipation and | | | | | | diarrhea; Dysphagia, | | | | | | unspecified type; | | | | | | LLQ abdominal pain | +--------+---------+ + + + Social History [...] this encounter Patient Instructions Patient Instructions Camden Gan MD - 12/27/2018 2:30 PM PDT1. Try the low fodmap diet 2. Try dicyclomine as needed for gut cramps and esophageal cramps. 3. Take the omeprazole (prilosec) with your aspirin in evening documented in this encounter Progress Notes Camden Gan MD - 12/27/2018 2:30 PM PDT Gastroenterology Clinic Progress Note Date of Office Visit: 12/27/18 Primary Care Physician: VINOD Gusman Chief Complaint Follow-up (EGD) gerd diarrhea History of Present Illness Albert Carcamo is a 63 y.o. female with psoriasis, IBS-D, GERD, DM, DOMINGO, who presents to [facility] for GERD, dysphagia and diarrhea. Interval history: She underwent EGD and manometry on 11/07. Manometry was normal, no motility disorder. EGD wa s also overall normal. The path was negative for Leyva's. More suggestive of GERD changes in the esophagus. She is doing ok. She often misses her omeprazole. She puts it in the pillbox, but still for gets to take it as she has tried to take it 30 minutes after her other morning meds. She reports intermittent diarrhea. She has been doing well though for the past week, having normal BMs. She feels intermittent sharp LLQ pain, she thinks she has a small hernia. EGD 11/07/18 Impression: - Normal upper third of esophagus and middle third of esophagus. Biopsied. - Draper-colored mucosa suspicious for short-segment Leyva's esophagus. Biopsied. - Z-line irregular, 41 cm from the incisors. - Erythematous mucosa in the antrum. Biopsied. - Normal cardia, gastric fundus and gastric body. - Normal duodenal bulb and second portion of the duodenum. Biopsied. - Granular mucosa in the duodenal bulb. Included with duodenal biopsies. Recommendation: - Await pathology results. - Resume previous diet. - Continue present medications. - Perform routine esophageal manometry today. CAMDEN GAN MD 11/07/2018 11:57:13 AM FINAL PATHOLOGIC DIAGNOSIS: A. Duodenal biopsies: - Benign duodenal mucosa with focal Beverly's gland hyperplasia and mild acute duodenitis . - Preserved villous architecture, negative for significantly increased epithelial lymphoc ytes. B. Gastric biopsies: - Focal mild chronic gastritis. - Helicobacter pylori immunostain is negative for organisms. C. Esophagus biopsy at 40 cm: - Gastroesophageal junction with reactive epithelial features and moderate chronic inflam mation. - Negative for specialized intestinal (goblet cell) metaplasia or dysplasia. D. Mid esophagus, biopsy: - Benign esophageal mucosa, negative for significantly increased epithelial eosinophils. JVR:smh:C2NR Review of Systems A 10 point review of systems was conducted with the patient, pertinent positives and negati ves per HPI. Problem List Patient Active Problem List Diagnosis HYPOTHYROIDISM Diabetes mellitus, type 2 CHRONIC OBSTRUCTIVE PULMONARY DISEASE Coronary atherosclerosis URINARY INCONTINENCE DYSPNEA ON EXERTION GERD (gastroesophageal reflux disease) NONSPEC ELEVATION OF LEVELS OF TRANSAMINASE/LDH HLD (hyperlipidemia) BREAST TENDERNESS ABDOMINAL PAIN OTHER SPECIFIED SITE PSORIASIS Essential hypertension Obstructive sleep apnea syndrome Status post insertion of drug-eluting stent into left anterior descending (LAD) artery for coronary artery disease Hoarseness Gastroesophageal reflux disease, esophagitis presence not specified Sore throat Epigastric pain S/P PTCA (percutaneous transluminal coronary angioplasty) Past Medical History Past Medical History: Diagnosis [...] History Past Surgical History: Procedure Laterality Date GASTRIC MANOMETRY N/A 11/07/2018 Procedure: MANOMETRY ESOPHAGEAL; Surgeon: Camden Gan MD; Location: [facility] MANOMETRY ESOPHAGEAL 11/14/2018 No surgical history on file UPPER GASTROINTESTINAL ENDOSCOPY N/A 11/07/2018 Procedure: EGD; Surgeon: Camden Gan MD; Location: [facility] Allergies Allergies Allergen Reactions Bee Venom Anaphylaxis [...] MISC by Does not apply route. Ipratropium Hampton HFA (ATROVENT HFA IN) AERS Inhale 1 [...] file prior to visit. Physical Exam Vitals:BP 120/72 | Pulse 67 | Temp 36.3 C (97.4 F) (Temporal) | Resp 16 | Ht 1.626 m (5' 4") | Wt 96.8 kg (213 lb 6.5 oz) | SpO2 97% | BMI 36.63 kg/m General: This is a well-developed,well-nurished female in no apparent distress, alert and o riented x 3. Head: Reveals normocephalic, atraumatic Eyes: Sclera anicteric, normal conjunctiva Mouth: Oropharynx is clear without obstruction. No oral lesion. Lungs: Clear to auscultation without rales or wheezes. Cardiac: RRR, no murmurs, rubs or gallops. Abdomen: Soft, nontender, non-distended, without masses or organmegaly. Normoactive bowel sounds. No palpable inguinal hernia in the LLQ. Labs No new labs Imaging No new imagin Assessment and Plan This is a pleasant 63 year old woman here to follow up for GERD and diarrhea. 1. Gastroesophageal reflux disease, esophagitis presence not specified -she frequently misses her omeprazole dose, supposed to be taking it once a day. I asked he r to therefore take it daily in the evening along with her aspirin. This timing is not optim al, but still better than missing over 50% of her doses. 2. Dysphagia -no mechanical cause or motility disorders identified -suspect due to GERD 3. Diarrhea, suspect due to IBS -doing ok, intermittent. Recommended trying bentyl given component of abdominal cramps. Thi s may help with her report of esophageal cramps/spasms as well. To be taken PRN for now. War vadim her about dizziness with this med. -try low FODMAP diet, printout given 4. LLQ abdominal pain -no obvious inguinal hernia on exam. She will track this for now without further workup as the symptoms are brief and rare Follow up: No follow-ups on file. CC: VINOD Potter [id number] [place] [address] Portions of this chart may have been created with [employer] voice recognition software. Occasi onal wrong-word or sound-alike substitutions may have occurred due to the inherent mello itations of voice recognition software. Please read the chart carefully and recognize, using context, where these substitutions have occurred documented in this encounter Plan of Treatment Not on filedocumented as of this encounter Visit Diagnoses + + | Diagnosis | + + | Gastroesophageal reflux disease, esophagitis presence not specified - Primary | + + | Irritable bowel syndrome with both constipation and diarrhea | + + | Dysphagia, unspecified type | + + | LLQ abdominal pain Abdominal pain, left lower quadrant | + + documented in this encounter Additional Health Concerns + + + + | Infection | Noted Time | Resolved Time | + + + + | Methicillin-resistant Staphylococcus aureus | 05/17/2013 3:06 PM | | | | PST | | + + + + documented as of this encounter
--- OUTSIDE RECORDS SUMMARY | ~2019-07-05 | XMS | Encounter Summary ---
Demographics + + + | Address | [address] | | | [place] [address] | + + + | Home Phone | | + + + | Preferred Language | Unknown | + + + | Marital Status | Legally | + + + | Mormonism Affiliation | Unknown | + + + | Race | Unknown | + + + | Ethnic Group | Unknown | + + + Author + + + | Author | [facility] | | | and [place] | + + + | Organization | [facility] | | [...] Team Providers + +------+ + | Care Muck Hauler Name | Role | Phone | + +------+ + | Deloris Tolbert | PCP | | + +------+ + Encounter Details +--------+ + + + + | Date | Type | Department | Care Team | Description | +--------+ + + + + | 06/03/ | Orders Only | [facility] | Nazia Danielchago Brennan | | | 2014 | | CARDIOLOGY [place] | MD [address] | | | | | [address] | [address] | | | | | [address] | [place] [address] | | | | | [place], [place] | [phone] | | | | | [address] | | | | | | [phone] | | | +--------+ + + + [...] | + +--------+ + + + | NM MYOCARDIAL | Routin | 06/03/2014 | | Results for this | | PERFUSION MULT SPECT | e | 3:07 PM | | procedure are in the | | | | PDT | | results section. | + +--------+ + + + documented in this encounter Results NM Myocardial Perfusion Mult SPECT (06/03/2014 3:07 PM PDT) + + | Specimen | + + | | + + + + + | Narrative | Performed At | + + + | [facility] Nuclear Treadmill Stress Test | | | INDICATION FOR TEST: 06/03/2014. RISK FACTORS: hypertension, | | | hyperlipidemia, family history, stress, diabetes mellitus, history of | | | tobacco abuse . Previous Cardiac Procedures: Nuclear stress test | | | done in 12/2010. PROCEDURE: Jose Francisco protocol. Rest dose- 9.3 mCi of | | | Tc-99 Myoview given intravenously. Stress dose- At 04:54 minutes 28.6 | | | mCi of Tc-99 Myoview given intravenously. Effective Dose Equivalent: | | | 13.0 mSv. Predicted exercise time was 5.5 minutes. Predicted Maximum | | | HR: 159. Predicted 85% Max HR: 135. REST DATA: Heart Rate: 70, | | | BP: 136/67. ECG: Sinus rhythm rate 70. Early transition. Leftward | | | axis. STRESS DATA: Exercise Time: 05:12 minutes, Heart Rate | | | achieved: 139, Max BP: 202/89, RPP: 60207. METS: 7.00. The patient | | | walked to 87% MPHR. Symptoms headache, shortness of breath, fatigue | | | The test was terminated due to patient bilateral leg fatigue, ECG: | | | No significant arrhythmias. No ischemia. EJECTION FRACTION: REST | | | EF: 68% STRESS EF: 69%. IMAGING: The quality of the images are | | | good. No artifacts are seen. SPECT images show no significant rest and | | | stress perfusion abnormality. Gated images show normal wall motion | | | and normal systolic thickening. Post stress ejection fraction 69%.. | | | IMPRESSIONS: Average exercise time Hypertensive response to | | | exercise Exercise-induced shortness of breath noted No significant | | | arrhythmias or ECG evidence of ischemia No significant rest or stress | | | perfusion abnormality Normal LV systolic function This study | | | represents an improvement from a previous study dated December 2010. | | | Gregory Metz MD, FACC, FACP, FASNC | | + + + + + | Procedure Note | + + | Joreg Blanchard Conversion - 11/02/2018 12:22 PM [facility] CARDIOLOG[facility] | | Treadmill Stress Test INDICATION FOR TEST: 06/03/2014. RISK FACTORS: hypertension, | | hyperlipidemia, family history, stress, diabetes mellitus, history of tobacco abuse . | | Previous Cardiac Procedures: Nuclear stress test done in 12/2010. PROCEDURE: Jose Francisco | | protocol. Rest dose- 9.3 mCi of Tc-99 Myoview given intravenously. Stress dose- At 04:54 | | minutes 28.6 mCi of Tc-99 Myoview given intravenously. Effective Dose Equivalent: 13.0 | | mSv. Predicted exercise time was 5.5 minutes. Predicted Maximum HR: 159. Predicted 85% | | Max HR: 135. REST DATA: Heart Rate: 70, BP: 136/67. ECG: Sinus rhythm rate 70. Early | | transition. Leftward axis. STRESS DATA: Exercise Time: 05:12 minutes, Heart Rate | | achieved: 139, Max BP: 202/89, RPP: 88272. METS: 7.00. The patient walked to 87% MPHR. | | Symptoms headache, shortness of breath, fatigue The test was terminated due to patient | | bilateral leg fatigue, ECG: No significant arrhythmias. No ischemia. EJECTION FRACTION: | | REST EF: 68% STRESS EF: 69%. IMAGING:The quality of the images are good. No artifacts | | are seen. SPECT images show no significant rest and stress perfusion abnormality. Gated | | images show normal wall motion and normal systolic thickening. Post stress ejection | | fraction 69%.. IMPRESSIONS:Average exercise timeHypertensive response to | | exerciseExercise-induced shortness of breath notedNo significant arrhythmias or ECG | | evidence of ischemiaNo significant rest or stress perfusion abnormalityNormal LV | | systolic functionThis study represents an improvement from a previous study dated | | December 2010. Gregory Metz MD, FACC, FACP, FASNC | |The quality of the images are good. No artifacts are seen. SPECT images show no significant rest and stress perfusion abnormality. Gated images show normal wall motion and normal syst olic thickening. Post stress ejection fraction 69%.. | | | |IMPRESSIONS: | |Average exercise time | |Hypertensive response to exercise | |Exercise-induced shortness of breath noted | |No significant arrhythmias or ECG evidence of ischemia | |No significant rest or stress perfusion abnormality | |Normal LV systolic function | |This study represents an improvement from a previous study dated December 2010. | | | |Gregory Metz MD, FACC, FACP, [facility] | | | | | + + documented in this encounter Visit Diagnoses Not on filedocumented in this encounter Additional Health Concerns + + + + | Infection | Noted Time | Resolved Time | + + + + | Methicillin-resistant Staphylococcus aureus | 05/17/2013 3:06 PM | | | | PST | | + + + + documented as of this encounter"
--- OUTSIDE RECORDS SUMMARY | ~2019-07-05 | XMS | Encounter Summary ---
Demographics + + + | Address | [address] | | | [place] [address] | + + + | Home Phone | | + + + | Preferred Language | Unknown | + + + | Marital Status | Legally | + + + | Islam Affiliation | Unknown | + + + | Race | Unknown | + + + | Ethnic Group | Unknown | + + + Author + + + | Author | [facility] | | | and [place] | + + + | Organization | [facility] | | [...] Team Providers + +------+ + | Care Supervisor Type Disk Quality Control Name | Role | Phone | + +------+ + | Deloris Tolbert | PCP | | + +------+ + Encounter Details +--------+ + + + + | Date | Type | Department | Care Team | Description | +--------+ + + + + | 08/20/ | Abstract | [facility] | Jet, | | | 2018 | | GASTROENTEROLOGY | MD [address] | | | | | [address] | [place] [address]. | | | | | [address] [place], [place] | [place] [address] | | | | | [address] | | | | | | [phone] | | | +--------+ + + + [...]
--- OUTSIDE RECORDS SUMMARY | ~2019-07-05 | XMS | Encounter Summary ---
Demographics + + + | Address | [address] | | | [place] [address] | + + + | Home Phone | | + + + | Preferred Language | Unknown | + + + | Marital Status | Legally | + + + | Buddhist Affiliation | Unknown | + + + | Race | Unknown | + + + | Ethnic Group | Unknown | + + + Author + + + | Author | [facility] | | | and [place] | + + + | Organization | [facility] | | | [...] Team Providers + +------+ + | Care Dredge Worker Name | Role | Phone | + +------+ + PCP | Unavailable | + +------+ + Encounter Details +--------+ + + + + | Date | Type | Department | Care Team | Description | +--------+ + + + + | 06/18/ | Hospital | [facility] | | | | 2007 | Encounter | [facility] | | | | | | CENTER [address] | | | | | | [place] | | | | | | [address] | | | | | | [phone] | | | +--------+ + + + [...]
--- OUTSIDE RECORDS SUMMARY | ~2019-07-05 | XMS | Encounter Summary ---
Demographics + + + | Address | [address] | | | [place] [address] | + + + | Home Phone | | + + + | Preferred Language | Unknown | + + + | Marital Status | Legally | + + + | Christian Affiliation | Unknown | + + + | Race | Unknown | + + + | Ethnic Group | Unknown | + + + Author + + + | Author | [facility] | | | and [place] | + + + | Organization | [facility] | | | [...] Team Providers + +------+ + | Care Donor Relations Officer Name | Role | Phone | + +------+ + PCP | Unavailable | + +------+ + Encounter Details +--------+ + + + + | Date | Type | Department | Care Team | Description | +--------+ + + + + | 10/ | Hospital | [facility] | Xavi Smith MD | CHEST PAIN NOS | | 2004 - | Encounter | [facility] | | | | | | CARE FLOOR [address] | [address] | | | | 2005 | | [place], [place] | | | | | | [address] | | | | | | [phone] | | | +--------+ + + + [...] + | Diagnosis | + + | Chest pain, unspecified | + + documented in this encounter"
--- OUTSIDE RECORDS SUMMARY | ~2019-07-05 | XMS | Encounter Summary ---
Demographics + + + | Address | [address] | | | [place] [address] | + + + | Home Phone | | + + + | Preferred Language | Unknown | + + + | Marital Status | Legally | + + + | Restorationism Affiliation | Unknown | + + + | Race | Unknown | + + + | Ethnic Group | Unknown | + + + Author + + + | Author | [facility] | | | and [place] | + + + | Organization | [facility] | | | [...] Team Providers + +------+ + | Care Residential Advisor Name | Role | Phone | + +------+ + PCP | Unavailable | + +------+ + Encounter Details +--------+ + + + + | Date | Type | Department | Care Team | Description | +--------+ + + + + | 11/23/ | Abstract | [place] [facility] | DATA MIGRATION HUSSEIN | | | 2011 | | Conversion Location | SR | | | | | [address] [facility] | | | | | | [place], [place] | | | | | | [address] | | | | | | [phone] | | | +--------+ + + + [...] | Blood Pressure | 120/60 | 07/29/2010 12:00 AM | | | | | PDT | | + + + + + | Pulse | - | - | | + + + + + | Temperature | - | - | | + [...] | 92.5 kg (204 lb) | 07/29/2010 12:00 AM | | | | | PDT | | + + + + + | Height | 165.1 cm (5' 5") | 04/09/2010 12:00 AM | | | | | PST | | + + + + + | Body Mass Index | 33.95 | 04/09/2010 12:00 AM | | | | | PST | | + + + + + documented in this encounter Plan of Treatment Not on filedocumented as of this encounter Visit Diagnoses Not on filedocumented in this encounter
--- OUTSIDE RECORDS SUMMARY | ~2019-07-05 | XMS | Encounter Summary ---
Demographics + + + | Address | [address] | | | [place] [address] | + + + | Home Phone [...] + + + | Author | [facility] | | | and [place] | + + + | Organization | [facility] | | [...] Team Providers + +------+ + | Care Oxyacetylene Cutter Name | Role | Phone | [...] [address]. | | | | | [address] [place], [place] | [place] [address] | | | | | [address] | | | | | | [phone] | | | +--------+ + + + [...]
--- OUTSIDE RECORDS SUMMARY | ~2019-07-05 | XMS | Encounter Summary ---
Demographics + + + | Address | [address] | | | [place] [address] | + + + | Home Phone | | + + + | Preferred Language | Unknown | + + + | Marital Status | Legally | + + + | Christian Affiliation | Unknown | + + + | Race | Unknown | + + + | Ethnic Group | Unknown | + + + Author + + + | Author | [facility] | | | and [place] | + + + | Organization | [facility] | | [...] Team Providers + +------+ + | Care Credentialing Specialist Name | Role | Phone | [...] | | | disease, | | [place] [address] | | | | | esophagitis | | Phone: | | | | | presence not | | [phone] | | | | | specified | | Fax: | | | | | Sore throat | | [phone] | | | | | Epigastric | | | | | | | pain | | | | | | | Obstructive | | | | | | | sleep apnea | | | | | | | syndrome | | | | | | | Procedures | | | | | | | [place] | | | | | | | ESOPHAGOGAST | | | | | | | RODUODENOSCO | | | | | | | PY TRANSORAL | | | | | | | DIAGNOSTIC | | | | | | | [place] EGD | | | | | | | TRANSORAL | | | | | | | BIOPSY | | | | | | | SINGLE/MULTI | | | | | | | PLE [place] | | | | | | | GASTRIC | | | | | | | MOTILITY | | | | | | | STUDY [place] | | | | | | | [...] + + + + | 11/07/ | Anesthesia | [facility] | Andrews Baxter | | | 2019 | Event | MED CTR MP INTRA OP | DO [address] | | | | | [address] | [facility] | | | | | [place] | [place] [address] | | | | | [address] | [phone] | | | | | [phone] | | | +--------+ + + + + Anesthesia Record + + + + + | Procedure Name | Responsible | Anesthesia Start | Anesthesia Stop Time | | | Anesthesiologist | Time | | + + + + + | EGD (N/A Mouth) | Andrews Chiang | 11/07/18 1127 | 11/07/18 1153 | | | DO Vee | | | + + + + + +----+---+ + + | Da | T | Event | Comment | | te | i | | | | | m | | | | | e | | | +----+---+ + + | 08 | 1 | | | | /2 | 0 | | | | 8/ | 1 | | | | 20 | 8 | | | | 19 | | | | +----+---+ + + | | 1 | An Checkout | Pre-use anesthesia machine/equipment checkout. | | | 0 | | | | | 1 | | | | | 8 | | | +----+---+ + + | | 1 | An Start | Reassessment prior to anesthesia induction/procedure. | | | 1 | | | | | 2 | | | | | 7 | | | +----+---+ + + | | 1 | An Start | | | | 1 | Data | | | | 2 | | | | | 7 | | | +----+---+ + + | | 1 | Pre-Procedu | | | | 1 | ral Timeout | | | | 3 | Completed | | | | 0 | | | +----+---+ + + | | 1 | First | | | | 1 | Inc/Proc St | | | | 3 | | | | | 0 | | | +----+---+ + + | | 1 | An | | | | 1 | Induction | | | | 3 | | | | | 2 | | | +----+---+ + + | | 1 | Anesthesia | | | | 1 | Ready | | | | 3 | | | | | 2 | | | +----+---+ + + | | 1 | AN | Per surgeon request | | | 1 | Antibiotic | | | | 3 | declined | | | | 2 | | | +----+---+ + + | | 1 | an stop | | | | 1 | data | | | | 4 | | | | | 8 | | | +----+---+ + + | | 1 | An Stop | Patient handed off to recovery nurse. | | | 5 | | | | | 3 | | | +----+---+ + + +------+ | Meds | +------+ + +--------+ | Name | Total | + +--------+ | propofol | 100 mg | + +--------+ | propofol | 240 mg | + +--------+ | lidocaine 2% | 100 mg | + +--------+ | lactated ringers (LR) infusion | 800 mL | + +--------+ + + | Name | + + | O2 Flow Rate (L/Min) | + + + + | No blood administrations on file. | + + +--------+ + + + | Type | Details | Placement | Removal | +--------+ + + + | Periph | 11/07/18; 1000; Left; Hand; | 11/07/18 1000 by | 11/07/18 1317 by Chip | | eral | btii-ggd-ozuhzv catheter system; | Vandana Dumas, | Kim Manzo RN | | IV | 20 gauge, 1 1/4 in length; | RN | | | | distraction, intradermal | | | | | injection; 11/07/18; 1317 | | | +--------+ + + + documented in this encounter Social History + +-------+ +--------+------+ | Tobacco [...] Diagnoses Not on filedocumented in this encounter Administered Medications + +---------+ +------+------+------+ | Medication Order | MAR | Action | Dose | Rate | Site | | | Action | Date | | | | + +---------+ +------+------+------+ | lactated ringers (LR) infusion | New Bag | 11/08/19 | | | | | at 10-100 mL/hr, Intravenous, | | 19 11:15 | | | | | CONTINUOUS, Starting 11/07/18 | | AM PDT | | | | | at 1045, TKO., Pre-op | | | | | | + +---------+ +------+------+------+ +---+---+ | | | +---+---+ + +-------+ +--------+---+---+ | lidocaine (PF) 2% injection | Given | 11/08/19 | 100 mg | | | | Intravenous, PRN, Starting Mon | | 19 11:32 | | | | | 11/07/18 at 1132, Anesthesia | | AM PDT | | | | | Intra-op | | | | | | + +-------+ +--------+---+---+ +---+---+ | | | +---+---+ + +-------+ +-------+---+---+ | propofol (DIPRIVAN) injection | Given | 11/08/19 | 40 mg | | | | Intravenous, PRN, Starting Wed | | 19 11:35 | | | | | 11/07/18 at 1132, Anesthesia | | AM PDT | | | | | Intra-op | | | | | | + +-------+ +-------+---+---+ +-------+ +-------+---+---+ | Given | 11/08/19 | 60 mg | | | | | 19 11:32 | | | | | | AM PDT | | | | +-------+ +-------+---+---+ +---+---+ | | | +---+---+ + +---------+ + +-------+---+ | propofol (DIPRIVAN) injection | New Bag | 11/08/19 | 200 | 120 | | | Intravenous, CONTINUOUS PRN, | | 19 11:32 | mcg/kg/m | mL/hr | | | Starting 11/07/18 at 1132, | | AM PDT | in | | | | Anesthesia Intra-op | | | | | | + +---------+ + +-------+---+ +---+---+ | | | +---+---+ documented in this encounter Additional Health Concerns + + + + | Infection | Noted Time | Resolved Time | + + + + | Methicillin-resistant Staphylococcus aureus | 05/17/2013 3:06 PM | | | | PST | | + + + + documented as of this encounter"
--- OUTSIDE RECORDS SUMMARY | ~2019-07-05 | XMS | Encounter Summary ---
Demographics + + + | Address | [address] | | | [place] [address] | + + + | Home Phone | | + + + | Preferred Language | Unknown | + + + | Marital Status | Legally | + + + | Restoration Affiliation | Unknown | + + + | Race | Unknown | + + + | Ethnic Group | Unknown | + + + Author + + + | Author | [facility] | | | and [place] | + + + | Organization | [facility] | | | [...] Team Providers + +------+ + | Care Buck Swamper Name | Role | Phone | + [...] | | | | | (irritable | GROUNDSKEEPER [address] | [address] | | | | | bowel | [address] | [address] [place] | | | | | syndrome) | [address] | [address] | | | | | Sore throat | [place], | [place] | | | | | Procedures | [place] [address] | [address] | | | | | OFFICE | Phone: | Phone: | | | | | VISIT | [phone] | [phone] | | | | | | Fax: | Fax: | | | | | | [phone] | [phone] | +--------+--------+ + + + + Encounter Details +--------+---------+ + + + | Date | Type | Department | Care Team | Description | +--------+---------+ + + + | 10/16/ | Office | [facility] | Camden Hansen | Irritable bowel | | 2019 | Visit | GASTROENTEROLOGY | MD Donny [address] | syndrome with both | | | | [address] | [address] [place] | constipation and | | | | [address] [place], [place] | [facility] [place] [address] | diarrhea (Primary | | | | [address] | [phone] | Dx); | | | | [phone] | | Gastroesophageal | | | | [...] 10/16/2018 2:30 PM PDTColonoscopy report received: 09/01/[address] [facility] [address] Marie Normal entire colon. Good prep. [...] Office Visit: 10/17/18 Referring Provider: VINOD Potter [address] [facility] [address] [place] [address] Providing Physician: Camden Hansen MD. Chief Complaint: [...] MISC by Does not apply route. Ipratropium [place] HFA (ATROVENT HFA IN) AERS Inhale 1 [...] 6 weeks (around 11/27/2018). CC: VINOD Potter [address] [place] [address] [address] [place] [address] Portions of this chart may have been created with [employer] voice recognition software. Occasi onal wrong-word or [...]
--- OUTSIDE RECORDS SUMMARY | ~2019-07-05 | XMS | Encounter Summary ---
Demographics + + + | Address | [address] | | | [place] [address] | + + + | Home Phone | | + + + | Preferred Language | Unknown | + + + | Marital Status | Legally | + + + | Zoroastrian Affiliation | Unknown | + + + | Race | Unknown | + + + | Ethnic Group | Unknown | + + + Author + + + | Author | [facility] | | | and [place] | + + + | Organization | [facility] | | | and [...] Team Providers + +------+ + | Care Regulatory Analyst Name | Role | Phone | + +------+ + | Deloirs Tolbert | PCP | | + +------+ [...] | | | disease, | | [place] [address] | | | | | esophagitis | | Phone: | | | | | presence not | | [phone] | | | | | specified | | Fax: | | | | | Sore throat | | [phone] | | | | | Epigastric | | | | | | | pain | | | | | | | Obstructive | | | | | | | sleep apnea | | | | | | | syndrome | | | | | | | Procedures | | | | | | | [place] | | | | | | | ESOPHAGOGAST | | | | | | | RODUODENOSCO | | | | | | | PY TRANSORAL | | | | | | | DIAGNOSTIC | | | | | | | [place] EGD | | | | | | | TRANSORAL | | | | | | | BIOPSY | | | | | | | SINGLE/MULTI | | | | | | | PLE [place] | | | | | | | GASTRIC | | | | | | | MOTILITY | | | | | | | STUDY [place] | | | | | | | [...] + + | 11/07/ | Anesthesia | [facility] | Andrews Baxter | | | 2019 | Event | MED CTR MP INTRA OP | DO [address] | | | | | [address] | [facility] | | | | | [place] | [place] [address] | | | | | [address] | [phone] | | | | | [phone] | | | +--------+ + + + [...] [address] | | eral | dtlx-ibe-lvmcti catheter system; | Vandana Dumas, | Kim [...]
--- OUTSIDE RECORDS SUMMARY | ~2019-07-05 | XMS | Encounter Summary ---
Demographics + + + | Address | [address] | | | [place] [address] | + + + | Home Phone | | + + + | Preferred Language | Unknown | + + + | Marital Status | Legally | + + + | Jew Affiliation | Unknown | + + + | Race | Unknown | + + + | Ethnic Group | Unknown | + + + Author + + + | Author | [facility] | | | and [place] | + + + | Organization | [facility] | | [...] Team Providers + +------+ + | Care Batter Mixer Name | Role | Phone | + [...] | | | disease, | | [place] [address] | | | | | esophagitis | | Phone: | | | | | presence not | | [phone] | | | | | specified | | Fax: | | | | | Sore throat | | [phone] | | | | | Epigastric | | | | | | | pain | | | | | | | Obstructive | | | | | | | sleep apnea | | | | | | | syndrome | | | | | | | Procedures | | | | | | | [place] | | | | | | | ESOPHAGOGAST | | | | | | | RODUODENOSCO | | | | | | | PY TRANSORAL | | | | | | | DIAGNOSTIC | | | | | | | [place] EGD | | | | | | | TRANSORAL | | | | | | | BIOPSY | | | | | | | SINGLE/MULTI | | | | | | | PLE [place] | | | | | | | GASTRIC | | | | | | | MOTILITY | | | | | | | STUDY [place] | | | | | | | [...] Description | +--------+---------+ + + + | 11/07/ | [facility] | [facility] | Camden Gan | [place] | | 2019 | | MED CTR MP INTRA OP | MD Donny [address] | | | | | [address] | [address] [facility] | | | | | [place], [place] | [place] [address] | | | | | [address] | [phone] | | | | | [phone] | | | +--------+---------+ + + + [...] a thin layer | | 0 | /14/20 | | | ointment | to the [...] | 0 | 11/25/19 | | | [facility] | puffs every 6 hours | [...] is negative for | | | organisms. JVR:[facility] FINAL PATHOLOGIC DIAGNOSIS: A. Duodenal | | [...] significantly increased epithelial | | | eosinophils. JVR:[facility]:C2NR GROSS DESCRIPTION: Four specimens | | | [...] performance | | | characteristics determined by [facility]. It has not been | | | cleared or approved by the U.S. Food and Drug Administration. The | | | FDA has determined that such clearance or approval is not necessary. | | | This test is used for clinical purposes. It should not be regarded | | | as investigational or for research. [facility] is certified | | | under the Clinical Laboratory Improvement Amendments of 1988 (CLIA) | | | as qualified to perform high complexity clinical laboratory testing. | | | PERFORMING LABORATORY: The technical component was performed by | | | [facility], [address] [place] [address] (Medical | | | Director: Patricia Ovalles MD; IA# [id number]). Professional | | | interpretation was performed by [facility] [place] | | | [facility], [address] [place] [address] | | | [address] (Hadoop Architect: Franck Perez M.D.). Diagnostician: | | | [...] | [facility] | | GastroenterologyPatient Name: Albert AndradeeProcedure Date: 11/07/2018 | PROVATION | | 11:16 AMMRN: [id number] #: [id number] of : | | | 4Admit Type: AmbulatoryAge: 63Room: Endo Room 2Gender: | | | FemaleNote Status: FinalizedAttending MD: CAMDEN GAN , | | | MDProcedure: Upper GI endoscopyIndications: | | | Epigastric abdominal pain, Dysphagia, HeartburnProviders: | | | CAMDEN GAN MD, Sandy Morales RN, Sarahi | | | REGLA Maya, Rosana Traore, Hearing Aid Repairer, Andrews Marmolejo | | | DO Vee (Anesthesia Staff)Referring MD: | | | Deloris Tolbert (Referring MD)Medicines: Monitored | | | Anesthesia CareComplications: No [...] of esophagus. | | | Biopsied. - [place]-colored mucosa suspicious for short-segment | | | [...] | - Perform routine esophageal manometry today.CAMDEN GAN | | | 11/07/2018 11:57:13 AMThis report has been signed | | | electronically.Number of Addenda: 0Note Initiated On: 11/07/2018 11:16 | | | AMScope In: 11:35:32 AMScope Out: 11:44:[address] [facility]. | | | [facility], [address] [place] [address] | | | [phone] | | | - Normal duodenal bulb [...] |Scope Out: 11:44:59 AM | | | [facility], [address] , [place] | | | [address] | | + + ----+ + +---------+ [...] | | | POC | | | [facility] | | | | | | MEDICAL [...] + | [facility] | [address] | [place] | [phone] | | [facility] | | [address] | | | - LABORATORY | | [...] | | | | | CONTINUOUS, Starting Mon11/07/18 | | AM PDT | | | [...] ONCE | | | PRN, Nausea, Starting 11/07/18 | | | at 1210, For 1 [...]
--- OUTSIDE RECORDS SUMMARY | ~2019-07-05 | XMS | Encounter Summary ---
Demographics + + + | Address | [address] | | | [place] [address] | + + + | Home Phone | | + + + | Preferred Language | Unknown | + + + | Marital Status | Legally | + + + | Hinduism Affiliation | Unknown | + + + | Race | Unknown | + + + | Ethnic Group | Unknown | + + + Author + + + | Author | [facility] | | | and [place] | + + + | Organization | [facility] | | | [...] Team Providers + +------+ + | Care Graduate Student Instructor Name | Role | Phone | + [...] | | | disease, | | [place] [address] | | | | | esophagitis | | Phone: | | | | | presence not | | [phone] | | | | | specified | | Fax: | | | | | Sore throat | | [phone] | | | | | Epigastric | | | | | | | pain | | | | | | | Obstructive | | | | | | | sleep apnea | | | | | | | syndrome | | | | | | | Procedures | | | | | | | [place] | | | | | | | ESOPHAGOGAST | | | | | | | RODUODENOSCO | | | | | | | PY TRANSORAL | | | | | | | DIAGNOSTIC | | | | | | | [place] EGD | | | | | | | TRANSORAL | | | | | | | BIOPSY | | | | | | | SINGLE/MULTI | | | | | | | PLE [place] | | | | | | | GASTRIC | | | | | | | MOTILITY | | | | | | | STUDY [place] | | | | | | | [...] + + | 11/07/ | Surgery | [facility] | Camden Gan | [place] | | 2019 | | MED CTR MP INTRA OP | MD Donny [address] | | | | | [address] | [address] [facility] | | | | | [place], [place] | [place] [address] | | | | | [address] | [phone] | | | | | [phone] | | | +--------+---------+ + + + [...] | 0 | 11/25/19 | | | [facility] | puffs every 6 hours | [...] is negative for | | | organisms. JVR:[facility] FINAL PATHOLOGIC DIAGNOSIS: A. Duodenal | [...] significantly increased epithelial | | | eosinophils. JVR:[facility]:C2NR GROSS DESCRIPTION: Four specimens | | [...] performance | | | characteristics determined by [facility]. It has not been | | | cleared or approved by the U.S. Food and Drug Administration. The | | | FDA has determined that such clearance or approval is not necessary. | | | This test is used for clinical purposes. It should not be regarded | | | as investigational or for research. [facility] is certified | | | under the Clinical Laboratory Improvement Amendments of 1988 (CLIA) | | | as qualified to perform high complexity clinical laboratory testing. | | | PERFORMING LABORATORY: The technical component was performed by | | | [facility], [address] [place] [address] (Medical | | | Director: Patricia Ovalles MD; IA# [id number]). Professional | | | interpretation was performed by [facility] [place] | | | [facility], [address] [place] [address] | | | [address] (Special Warfare Boat Operator: Franck Perez M.D.). Diagnostician: | | | [...] 11/07/2018 | PROVATION | | 11:16 AMMRN: [id number] #: [id number] of : | | | 4Admit Type: AmbulatoryAge: 63Room: Endo Room 2Gender: | | | FemaleNote Status: FinalizedAttending MD: CAMDEN GAN , | | | MDProcedure: Upper GI endoscopyIndications: | | | Epigastric abdominal pain, Dysphagia, HeartburnProviders: | | | CAMDEN GAN MD, Sandy Morales RN, Sarahi | | | REGLA Maya, Rosana Traore, Facilities Painter, Andrews Marmolejo | | | DO Vee [...] of esophagus. | | | Biopsied. - [place]-colored mucosa suspicious for short-segment | | | [...] AMScope In: 11:35:32 AMScope Out: 11:44:59 AM [facility]. | | | [facility], [address] [place] [address] | | | [phone] | | | - Normal duodenal bulb [...] |Scope Out: 11:44:59 AM | | | [facility], [address] , [place] | | | [address] | | + + ----+ + +---------+ [...] | | | POC | | | [facility] | | | | | | [...] [address] | [place] | [phone] | | [facility] | | [address] | | | - LABORATORY | | [...]
--- OUTSIDE RECORDS SUMMARY | ~2019-07-05 | XMS | Encounter Summary ---
Demographics + + + | Address | [address] | | | [place] [address] | + + + | Home Phone | | + + + | Preferred Language | Unknown | + + + | Marital Status | Legally | + + + | Rastafari Affiliation | Unknown | + + + | Race | Unknown | + + + | Ethnic Group | Unknown | + + + Author + + + | Author | [facility] | | | and [place] | + + + | Organization | [facility] | | | [...] Team Providers + +------+ + | Care Aviation Warfare Systems Operator Name | Role | Phone | + [...] | | | | | (irritable | IN SERVICE EDUCATOR [address] | [address] | | | | | bowel | [address] | [address] [place] | | | | | syndrome) | [address] | [address] [place] | | | | | Sore throat | [place], | [place], [place] | | | | | Procedures | [place] [address] | [address] | | | | | OFFICE | Phone: | Phone: | | | | | VISIT | [phone] | [phone] | | | | | | Fax: | Fax: | | | | | | [phone] | [phone] | +--------+--------+ + + + + Encounter Details +--------+---------+ + + + | Date | Type | Department | Care Team | Description | +--------+---------+ + + + | 12/27/ | Office | [facility] | Camden Gan | Gastroesophageal | | 2019 | Visit | GASTROENTEROLOGY | MD [address]ny [address] | reflux disease, | | | | [address] | [address] [place] | esophagitis presence | | | | [address] [place], [place] | [place] [address] | not specified | | | | [address] | [phone] | (Primary Dx); | | | | [phone] | | Irritable bowel | | | [...] IBS-D, GERD, DM, DOMINGO, who presents to [facility] for GERD, dysphagia and diarrhea. Interval history: [...] and middle third of esophagus. Biopsied. - [place]-colored mucosa suspicious for short-segment Leyva's esophagus. Biopsied. [...] MANOMETRY ESOPHAGEAL; Surgeon: Camden Gan MD; Location: [facility] MANOMETRY ESOPHAGEAL 11/14/2018 No surgical history on file UPPER GASTROINTESTINAL ENDOSCOPY N/A 11/07/2018 Procedure: EGD; Surgeon: Camden Gan MD; Location: [facility] Allergies Allergies Allergen [...] MISC by Does not apply route. Ipratropium [place] HFA (ATROVENT HFA IN) AERS Inhale 1 [...] No follow-ups on file. CC: VINOD Potter [address] [place] [address] Portions of this chart may have been created with [employer] voice recognition software. Occasi onal wrong-word or [...]
--- OUTSIDE RECORDS SUMMARY | ~2019-07-05 | XMS | Encounter Summary ---
Demographics + + + | Address | [address] | | | [place] [address] | + + + | Home Phone | | + + + | Preferred Language | Unknown | + + + | Marital Status | Legally | + + + | Methodist Affiliation | Unknown | + + + [...] Team Providers + +------+ + | Care Sales Activity Manager Name | Role | Phone | [...] | | | | | [address] [facility] | | | | | | [place], [place] | | | | | | [address] | | | | | | [phone] | | | +--------+ + + + [...]
--- OUTSIDE RECORDS SUMMARY | ~2019-07-05 | XMS | Clinical Summary ---
Demographics + + + | Address | [address] | | | [place] [address] | + + + | Home Phone | | + + + | Preferred Language | Unknown | + + + | Marital Status | Single | + + + | Adventism Affiliation | BAP | + + + [...] Team Providers + +------+ + | Care Hotel Operations Manager Name | Role | Phone | + +------+ + PCP | Unavailable | + +------+ + Source Comments AMELIA is fully live on both EpicCare Ambulatory and EpicCare InPatient.[facility] Allergies + + + + + + [...] | + + + +---------+------+------+-------+ | glyBURIDE 2.5 mg | Take 2.5 mg by mouth | | 0 | 01/2 | | Activ | | Oral Tablet | two times daily. | | | 4/20 | | e | | | | | | 11 | | | + + + +---------+------+------+-------+ | Aspirin 81 mg Oral | Take 81 mg by mouth | | 0 | | | Activ | | Tablet | once daily. | | | | | e | + + + +---------+------+------+-------+ | omeprazole 20 mg | Take 20 mg by mouth | | 0 | | | Activ | | Oral Capsule, | once daily. | | | | | e | | Delayed | | | | | | | | Release(E.C.) | | | | | | | + + + +---------+------+------+-------+ | levothyroxine 150 | Take 150 mcg by | | 0 | | | Activ | | mcg Oral Tablet | mouth once daily. | | | | | e | + + + +---------+------+------+-------+ | Ergocalciferol, | Take 50,000 Units by | | 0 | | | Activ | | Vitamin D2, 50,000 | mouth. | | | | | e | | unit Oral Tablet | | | | | | | + + + +---------+------+------+-------+ | docusate sodium | Take 100 mg by mouth | | 0 | | | Activ | | 100 mg Oral Capsule | two times daily. | | | | | e | + + + +---------+------+------+-------+ | SALSALATE ORAL | Take by mouth. | | 0 | | | Activ | | | | | | | | e | + + + +---------+------+------+-------+ | IPRATROPIUM | Inhale. | | 0 | | | Activ | | BROMIDE INHL | | | | | | e | + + + +---------+------+------+-------+ | nitroglycerin 0.3 | Place 0.3 mg under | | 0 | | | Activ | | mg [...] + + +---------+------+------+-------+ | hydrocortisone 2.5 | by Topical route two | | 0 | | | Activ | | % Topical Cream | times daily. Apply | | | | | e | | | a thin film to | | | | | | | | clean, dry skin and | | | | | | | | rub in gently. | | | | | | + + + +---------+------+------+-------+ | Hydrophilic | by Topical route. | | 0 | | | Activ | | Topical Ointment | | | | | | e | + + + +---------+------+------+-------+ | pioglitazone | Take 15 mg by mouth | | 0 | | | Activ | | (ACTOS) [...] | + + + + + | Pneumococcal | | | | | vaccination (1 of 2 | 9 | | | | - PCV13) | | | | + + + + + | Influenza (Flu) | | | | | vaccination (#1) | 9 | | | + + + + + Results Not on filefrom Last 3 Months Insurance + +--------+ +--------+-------+---------+--------+ | Payer | Benefi | Subscriber | Effect | Phone | Address | Type | | | t Plan | ID | radha | | | | | | / | | Dates | | | | | | Group | | | | | | + +--------+ +--------+-------+---------+--------+ | [facility] [employer] [facility] | FIRST | [phone] | Effect | | | PPO | | | CHOICE | | radha | | | | | | | | for | | | | | | HEALTH | | all | | | | | | | | dates | | | | + +--------+ +--------+-------+---------+--------+ | [facility] | DUTCH | [phone] | Effect | | | Agency | | SERVICE | | | radha | | | | | | HEALTH | | for | | | | | | | | all | | | | | | SERVIC | | dates | | | | | | E | | | | | | + +--------+ +--------+-------+---------+--------+ + +--------+ +--------+ + + | Guarantor Name | Accoun | Relation to | Date | Phone | Billing Address | | | t Type | Patient | of | | | | | | | | | | + +--------+ +--------+ + + | Albert Carcamo | Person | Self | [birth year] | [address] | | | al/Fam | | 4 | [phone] | [place] [address] | | | beulah | | | 6 (Home) | | + +--------+ +--------+ + + | Albert Carcamo | Agency | Self | [birth year] | | [address] | | | | | 1956 | [phone] | [place] [address] | | | | | | 6 (Home) | | + +--------+ +--------+ + +
--- OUTSIDE RECORDS SUMMARY | ~2019-07-05 | XMS | Encounter Summary ---
Demographics + + + | Address | [address] | | | [place] [address] | + + + | Home Phone | | + + + | Preferred Language | Unknown | + + + | Marital Status | Legally | + + + | Catholic Affiliation | Unknown | + + + | Race | Unknown | + + + | Ethnic Group | Unknown | + + + Author + + + | Author | [facility] | | | and [place] | + + + | Organization | [facility] | | [...] Team Providers + +------+ + | Care Machine Feed Operator Name | Role | Phone | + +------+ + PCP | Unavailable | + +------+ + Encounter Details +--------+ + + + + | Date | Type | Department | Care Team | Description | +--------+ + + + + | 10/ | Hospital | [facility] | Xavi Smith MD | CHEST PAIN NOS | | 2004 - | Encounter | [facility] | | | | | | CARE FLOOR [address] | | [address] | | [address] | | | | 2005 | | [place], [place] | | | | | | [address] | | | | | | [phone] | | | +--------+ + + + [...]
--- OUTSIDE RECORDS SUMMARY | ~2019-07-05 | XMS | Clinical Summary ---
Demographics + + + | Address | [address] | | | [place] [address] | + + + | Home Phone | | + + + | Preferred Language | Unknown | + + + | Marital Status | Unknown | + + + | Episcopalian Affiliation | Unknown | + + + | Race | Unknown | + + + | Ethnic Group | Unknown | + + + Author + + + | Author | [facility] (Historical as of | | | 10-27-18) | + + + | Organization | [facility] (Historical as of | | | 10-27-18) [...] Team Providers + +------+ + | Care Global Account Executive Name | Role | Phone | + [...] + + | Brother | | | [place] | | | | (Age | | [...] +------+-------+ + | MEDICAID | [place]ASTER | [id number] | | | [address] | | | [place] | | | | [place] | | | [place] | | | | [address] | | | COLLAR TRIMMER | | | | | + +--------+ +------+-------+ + | [facility] | YELLOW | [id number] | | | | | PLANS | [...] | Self | [birth year] | Home: | [address] | | | al/Fam | | 1955 | [phone] [place] | | | beulah | | | [phone] | [address] | + +--------+ +--------+ + +
--- OUTSIDE RECORDS SUMMARY | ~2019-07-05 | XMS | Encounter Summary ---
Demographics + + + | Address | [address] | | | [place] [address] | + + + | Home Phone | | + + + | Preferred Language | Unknown | + + + | Marital Status | Legally | + + + | Mormonism Affiliation | Unknown | + + + | Race | Unknown | + + + | Ethnic Group | Unknown | + + + Author + + + | Author | [facility] | | | and [place] | + + + | Organization | [facility] | | | [...] Team Providers + +------+ + | Care Processing Clerk Name | Role | Phone | + +------+ + | Deloris Tolbert | PCP | | + +------+ + Encounter Details +--------+ + + + + | Date | Type | Department | Care Team | Description | +--------+ + + + + | 06/03/ | Orders Only | [facility] | Nazia Danielchago Brennan | | | 2014 | | CARDIOLOGY [place] | MD [address] | | | | | [address] | [address] | | | | | [address] | [place] [address] | | | | | [place], [place] | [phone] | | | | | [address] | | | | | | [phone] | | | +--------+ + + + [...] Performed At | + + + | [facility] Nuclear Treadmill Stress Test | | | [...] | achieved: 139, Max BP: 202/89, RPP: 70870. METS: 7.00. The patient | | | [...] | Procedure Note | + + | Jorge Blanchard Conversion - 11/02/2018 12:22 PM [facility] | Treadmill Stress Test INDICATION [...] | achieved: 139, Max BP: 202/89, RPP: 39603. METS: 7.00. The patient walked to 87% [...] | | |Gregory Metz MD, FACC, FACP, [facility] | | | | | + + [...]
--- OUTSIDE RECORDS SUMMARY | ~2019-07-05 | XMS | Clinical Summary ---
Demographics + + + | Address | [address] | | | [place] [address] | + + + | Home Phone [...] Team Providers + +------+ + | Care Soil Field Technician Name | Role | Phone | [...] | 09/1 | | Activ | | [place] [facility] | puffs every 6 hours | [...] automatically from request for surgery | | [id number] | + + + + + | Gastroesophageal reflux disease, esophagitis presence not | 11/05/2018 | | specified | | + + + + + | Overview: Added automatically from request for surgery | | [id number] | + + + + + | Sore throat | 11/05/2018 | + + + + + | Overview: Added automatically from request for surgery | | [id number] | + + + + + | Epigastric pain | 11/05/2018 | + + + + + | Overview: Added automatically from request for surgery | | [id number] | + + + + + | [...] +--------+ +---------+--------+ | MEDICARE | MEDICA | [id number] | 05/12/19 | [phone] | | Medica | | | RE | | 19-Pre | 5 | | re | | | PART A | | sent | | | | | | AND B | | | | | | + +--------+ +--------+ +---------+--------+ | MEDICARE | MEDICA | [id number] | 05/12/19 | [phone] | | Medica | | | RE | | 19-Pre | 5 | | re | | | PART A | | sent | | | | | | AND B | | | | | | + +--------+ +--------+ +---------+--------+ | MEDICAID [place] | MEDICA | [id number] | 06/12/19 | [phone] | | Medica | | | ID | | 19-Pre | 2 | | id | | | [place] | | sent | | | | + +--------+ +--------+ +---------+--------+ | [facility] | IHS | [id number] | 03/13/19 | | | Indemn | | SERVICE | YELLOW | | 15-Pre | | | ity | | | [place] | | sent | | | | + +--------+ +--------+ +---------+--------+ | [facility] | IHS | [id number] | 01/04/ | | | Indemn | [...] Person | Self | [birth year] | | [address] | | | al/Fam | | 1956 | [phone] | [place], [place] | | | beulah | | | 5 (Home) | [address] | + +--------+ +--------+ + + | Albert Carcamo Mahi | Person | Self | [birth year] | | [address] | | | al/Fam | | 1956 | [phone] | [place], [place] | | | beulah | | | 5 (Home) | [address] | + +--------+ +--------+ + + Advance Directives + + + + + | Type | Date Recorded | Patient | Explanation | | | | Core Baker | | + + + + + | Power of | | | | | Investigation Division Sergeant | | | | + + + + + | Advance | 11/07/2018 9:23 | | | | Directive | AM | | | + + + + +
--- OUTSIDE RECORDS SUMMARY | ~2019-07-05 | XMS | Encounter Summary ---
Demographics + + + | Address | [address] | | | [place] [address] | + + + | Home Phone | | + + + | Preferred Language | Unknown | + + + | Marital Status | Legally | + + + | Moravian Affiliation | Unknown | + + + | Race | Unknown | + + + | Ethnic Group | Unknown | + + + Author + + + | Author | [facility] | | | and [place] | + + + | Organization | [facility] | | | [...] Team Providers + +------+ + | Care Entrepreneurial Finance Professor Name | Role | Phone | + +------+ + | Deloris Tolbert | PCP | | + +------+ + Encounter Details +--------+ + + + + | Date | Type | Department | Care Team | Description | +--------+ + + + + | 10/11/ | Orders Only | [facility] | Jack Cullen, | | | 2017 | | [address] | [address] | | | | | [address] | [facility], | | | | | [place], [place] | [place] [address] | | | | | [address] | [phone] | | | | | [phone] | | | +--------+ + + + [...] | + +--------+ + + + | ECHO INTERPRETATION | Routin | 10/11/2017 | | Results for this | | OF OUTSIDE FILMS | e | 9:56 AM | | procedure are in the | | | | PDT | | results section. | + +--------+ + + + documented in this encounter Results ECHO Interpretation of Outside Films (10/11/2017 9:56 AM PDT) + + | Specimen | + + | | + + + + + | Impressions | Performed At | + + + | 1. Essentially normal study. 2. Overall left ventricular systolic | | | function is normal with, an EF between 60 - 65 %. 3. The right | | | ventricle is normal in size and function. 4. No significant valvular | | | abnormalities. | | + + + + + + | Narrative | Performed At | + + + | Patient Name: Albert Carcamo Date of : 1955 | | | Performing Physician: JACK CULLEN MD | | | | | | INDICATIONS cad, chest pain, htn, stent in LAD 2004 | | | CONCLUSIONS 1. Essentially normal study. 2. Overall | | | left ventricular systolic function is normal with, an EF between 60 - | | | 65 %. 3. The right ventricle is normal in size and function. 4. No | | | significant valvular abnormalities. FINDINGS -------- ECG | | | rhythm: Sinus rhythm. Study: A 2-dimensional transthoracic | | | echocardiogram with m-mode, spectral and color flow Doppler was | | | perfomed. Study: This was a technically adequate study. Left | | | Ventricle: Overall left ventricular systolic function is normal with | | | an EF between 60 - 65 %. Left Ventricle: The left ventricle cavity | | | size is normal. Left Ventricle: Left ventricular wall thickness is | | | normal. Left Ventricle: No regional wall motion abnormalities. Left | | | Ventricle: The diastolic filling pattern is normal for the age of the | | | patient. Right Ventricle: The right ventricle is normal in size and | | | function. Left Atrium: The left atrium is normal in size. Right | | | Atrium: The right atrium is normal in size. Aortic Valve: Trace | | | amount of aortic regurgitation. Aortic Valve: There is no evidence of | | | aortic stenosis. Aortic Valve: The aortic valve is trileaflet and | | | appears structurally normal. Mitral Valve: Normal appearing mitral | | | valve. Mitral Valve: There is trace mitral regurgitation. Mitral | | | Valve: No evidence of MVP. Tricuspid Valve: The tricuspid valve | | | appears structurally normal. Tricuspid Valve: Trace tricuspid | | | regurgitation present. Tricuspid Valve: Pulmonary artery systolic | | | pressure could not be assessed due to the absence of adequate TR jet. | | | Pulmonic Valve: Pulmonic valve appears structurally normal. Pulmonic | | | Valve: Trace pulmonic regurgitation. Pericardium: There is no | | | pericardial effusion. IVC/Hepatic Veins: The inferior vena cava is | | | normal in size and collapses > 50 % with sniff, indicating normal | | | central venous pressures. Aorta: The aortic root, ascending aorta and | | | aortic arch are normal. Mass: No mass visualized Thrombus: No clot | | | visualized Thrombus: No vegetation visualized. Septum: No ASD | | | observed. Septum: No VSD observed. MEASUREMENTS | | | Ao asc: 3.49 cm Ao sinus: 3.[address] junct: 3.12 cm | | | IVC: 1.38 cm LA Diam: 4.09 cm EDV(Teich): 129.89 ml IVSd: | | | 0.97 cm LVIDd: 5.20 cm LVPWd: 0.82 cm LVOT Area: 3.42 | | | cm2 LVOT Diam: 2.08 cm %FS: 30.18 % EF(Teich): 57.10 % | | | ESV(Teich): 55.71 ml LVIDs: 3.63 cm SV(Teich): 74.17 ml | | | RVIDd: 2.57 cm LVEF MOD A2C: 56.35 % SV MOD A2C: 49.56 ml | | | LVEF MOD A4C: 53.94 % SV MOD A4C: 46.22 ml EF Biplane: | | | 52.61 % LVEDV MOD BP: 89.91 ml LVESV MOD BP: 42.60 ml LVEDV | | | MOD A2C: 87.94 ml LVLd A2C: 7.44 cm LVEDV MOD A4C: 85.68 ml | | | LVLd A4C: 8.06 cm LVESV MOD A2C: 38.38 ml LVLs A2C: 6.06 | | | cm LVESV MOD A4C: 39.46 ml LVLs A4C: 6.54 cm LAESV(A-L): | | | 62.39 ml LAESV Index (A-L): 31.19 ml/m2 LAAs A2C: 20.29 cm2 | | | LAESV A-L A2C: 67.29 ml LALs A2C: 5.19 cm LAAs A4C: 15.79 | | | cm2 LAESV A-L A4C: 48.57 ml LALs A4C: 4.36 cm RAAs: 13.50 | | | cm2 RAESV A-L: 40.06 ml RAESV MOD: 37.17 ml RALs: 3.86 cm | | | TAPSE: 1.74 cm AV maxP.36 mmHg AV meanP.24 mmHg | | | AV Vmax: 1.15 m/s AV Vmean: 0.86 m/s AV VTI: 24.97 cm VANESSA | | | Vmax: 3.10 cm2 VANESSA (VTI): 3.29 cm2 AVAI (Vmax): 0.00 cm2/m2 | | | AVAI (VTI): 0.00 cm2/m2 LVOT maxP.42 mmHg LVOT meanPG: | | | 2.48 mmHg LVSI Dopp: 41.07 ml/m2 LVSV Dopp: 82.15 ml LVOT | | | Vmax: 1.05 m/s LVOT Vmean: 0.74 m/s LVOT VTI: 24.01 cm MV | | | A Breezy: 0.86 m/s MV Dec Lagrange: 4.39 m/s2 MV DecT: 193.55 ms | | | MV E Breezy: 0.85 m/s MV E/A Ratio: 0.98 MV PHT: 56.13 ms | | | MVA By PHT: 3.91 cm2 Septal e': 0.06 m/s Septal E/e': 12.70 | | | Lateral e': 0.07 m/s Lateral E/e': 11.67 Steel Analyst: DBS | | | Authenticated by: JACK CULLEN MD Report Date/Time: -- | | | [id number] | | + + + + ------+ | Procedure Note | + ------+ | Jorge Blanchard Conversion - 11/01/2018 3:14 PM PDT Patient Name: Peng Carcamo of | | : 1955 Performing Physician: JACK CULLEN, | | INDICATIONS c | | ad, chest pain, htn, stent in LAD 2004 CONCLUSIONS 1. Essentially normal | | study.2. Overall left ventricular systolic function is normal with, an EF between 60 - | | 65 %.3. The right ventricle is normal in size and function. 4. No significant valvular | | abnormalities. FINDINGS--------ECG rhythm: Sinus rhythm.Study: A 2-dimensional | | transthoracic echocardiogram with m-mode, spectral and color flow Doppler was | | perfomed.Study: This was a technically adequate study.Left Ventricle: Overall left | | ventricular systolic function is normal with an EF between 60 - 65 %.Left Ventricle: The | | left ventricle cavity size is normal.Left Ventricle: Left ventricular wall thickness is | | normal.Left Ventricle: No regional wall motion abnormalities.Left Ventricle: The | | diastolic filling pattern is normal for the age of the patient.Right Ventricle: The | | right ventricle is normal in size and function.Left Atrium: The left atrium is normal in | | size.Right Atrium: The right atrium is normal in size.Aortic Valve: Trace amount of | | aortic regurgitation.Aortic Valve: There is no evidence of aortic stenosis.Aortic Valve: | | The aortic valve is trileaflet and appears structurally normal.Mitral Valve: Normal | | appearing mitral valve.Mitral Valve: There is trace mitral regurgitation.Mitral Valve: | | No evidence of MVP.Tricuspid Valve: The tricuspid valve appears structurally | | normal.Tricuspid Valve: Trace tricuspid regurgitation present.Tricuspid Valve: Pulmonary | | artery systolic pressure could not be assessed due to the absence of adequate TR | | jet.Pulmonic Valve: Pulmonic valve appears structurally normal.Pulmonic Valve: Trace | | pulmonic regurgitation.Pericardium: There is no pericardial effusion.IVC/Hepatic Veins: | | The inferior vena cava is normal in size and collapses > 50 % with sniff, indicating | | normal central venous pressures.Aorta: The aortic root, ascending aorta and aortic arch | | are normal.Mass: No mass visualizedThrombus: No clot visualizedThrombus: No vegetation | | visualized.Septum: No ASD observed.Septum: No VSD observed. MEASUREMENTS Ao | | asc: 3.49 cmAo sinus: 3.[address] junct: 3.12 cmIVC: 1.38 cmLA Diam: 4.09 | | cmEDV(Teich): 129.89 mlIVSd: 0.97 cmLVIDd: 5.20 cmLVPWd: 0.82 cmLVOT Area: | | 3.42 [id number] Diam: 2.08 cm%FS: 30.18 %EF(Teich): 57.10 %ESV(Teich): 55.71 | | mlLVIDs: 3.63 cmSV(Teich): 74.17 mlRVIDd: 2.57 cmLVEF MOD A2C: 56.35 %SV MOD | | A2C: 49.56 mlLVEF MOD A4C: 53.94 %SV MOD A4C: 46.22 mlEF Biplane: 52.61 %LVEDV | | MOD BP: 89.91 mlLVESV MOD BP: 42.60 mlLVEDV MOD A2C: 87.94 mlLVLd A2C: 7.44 | | cmLVEDV MOD A4C: 85.68 mlLVLd A4C: 8.06 cmLVESV MOD A2C: 38.38 mlLVLs A2C: 6.06 | | cmLVESV MOD A4C: 39.46 mlLVLs A4C: 6.54 cmLAESV(A-L): 62.39 mlLAESV Index (A-L): | | 31.19 ml/m2LAAs A2C: 20.29 [id number] A-L A2C: 67.29 mlLALs A2C: 5.19 cmLAAs A4C: | | 15.79 [id number] A-L A4C: 48.57 mlLALs A4C: 4.36 cmRAAs: 13.50 [id number] A-L: | | 40.06 mlRAESV MOD: 37.17 mlRALs: 3.86 cmTAPSE: 1.74 cmAV maxP.36 mmHgAV | | meanP.24 mmHgAV Vmax: 1.15 m/Lorie Vmean: 0.86 m/Lorie VTI: 24.97 cmAVA Vmax: | | 3.10 cm2AVA (VTI): 3.29 jb5ULAR (Vmax): 0.00 cm2/m2AVAI (VTI): 0.00 cm2/m2LVOT | | maxP.42 mmHgLVOT meanP.48 mmHgLVSI Dopp: 41.07 ml/m2LVSV Dopp: 82.15 | | mlLVOT Vmax: 1.05 m/sLVOT Vmean: 0.74 m/sLVOT VTI: 24.01 cmMV A Breezy: 0.86 m/sMV | | Dec Lagrange: 4.39 m/s2MV DecT: 193.55 msMV E Breezy: 0.85 m/sMV E/A Ratio: 0.98MV | | PHT: 56.13 msMVA By PHT: 3.91 [id number] e': 0.06 m/sSeptal E/e': 12.70Lateral | | e': 0.07 m/sLateral E/e': 11.67 Steel Analyst: DBSAuthenticated by: JACK CULLEN, | | MDReport Date/Time: -- [id number] IMPRESSION: 1. Essentially normal study.2. | | Overall left ventricular systolic function is normal with, an EF between 60 - 65 %.3. | | The right ventricle is normal in size and function. 4. No significant valvular | | abnormalities. | |Septum: No VSD observed. | | | |MEASUREMENTS | | | |Ao asc: 3.49 cm | |Ao sinus: 3.47 cm | |Ao st junct: 3.12 cm | |IVC: 1.38 cm | |LA Diam: 4.09 cm | |EDV(Teich): 129.89 ml | |IVSd: 0.97 cm | |LVIDd: 5.20 cm | |LVPWd: 0.82 cm | |LVOT Area: 3.42 cm2 | |LVOT Diam: 2.08 cm | |%FS: 30.18 % | |EF(Teich): 57.10 % | |ESV(Teich): 55.71 ml | |LVIDs: 3.63 cm | |SV(Teich): 74.17 ml | |RVIDd: 2.57 cm | |LVEF MOD A2C: 56.35 % | |SV MOD A2C: 49.56 ml | |LVEF MOD A4C: 53.94 % | |SV MOD A4C: 46.22 ml | |EF Biplane: 52.61 % | |LVEDV MOD BP: 89.91 ml | |LVESV MOD BP: 42.60 ml | |LVEDV MOD A2C: 87.94 ml | |LVLd A2C: 7.44 cm | |LVEDV MOD A4C: 85.68 ml | |LVLd A4C: 8.06 cm | |LVESV MOD A2C: 38.38 ml | |LVLs A2C: 6.06 cm | |LVESV MOD A4C: 39.46 ml | |LVLs A4C: 6.54 cm | |LAESV(A-L): 62.39 ml | |LAESV Index (A-L): 31.19 ml/m2 | |LAAs A2C: 20.29 cm2 | |LAESV A-L A2C: 67.29 ml | |LALs A2C: 5.19 cm | |LAAs A4C: 15.79 cm2 | |LAESV A-L A4C: 48.57 ml | |LALs A4C: 4.36 cm | |RAAs: 13.50 cm2 | |RAESV A-L: 40.06 ml | |RAESV MOD: 37.17 ml | |RALs: 3.86 cm | |TAPSE: 1.74 cm | |AV maxP.36 mmHg | |AV meanP.24 mmHg | |AV Vmax: 1.15 m/s | |AV Vmean: 0.86 m/s | |AV VTI: 24.97 cm | |VANESSA Vmax: 3.10 cm2 | |VANESSA (VTI): 3.29 cm2 | |AVAI (Vmax): 0.00 cm2/m2 | |AVAI (VTI): 0.00 cm2/m2 | |LVOT maxP.42 mmHg | |LVOT meanP.48 mmHg | |LVSI Dopp: 41.07 ml/m2 | |LVSV Dopp: 82.15 ml | |LVOT Vmax: 1.05 m/s | |LVOT Vmean: 0.74 m/s | |LVOT VTI: 24.01 cm | |MV A Breezy: 0.86 m/s | |MV Dec Lagrange: 4.39 m/s2 | |MV DecT: 193.55 ms | |MV E Breezy: 0.85 m/s | |MV E/A Ratio: 0.98 | |MV PHT: 56.13 ms | |MVA By PHT: 3.91 cm2 | |Septal e': 0.06 m/s | |Septal E/e': 12.70 | |Lateral e': 0.07 m/s | |Lateral E/e': 11.67 | | | |Steel Analyst: DBS | |Authenticated by: JACK CULLEN MD | |Report Date/Time: -- [id number] | | | |IMPRESSION: | |1. Essentially normal study. | |2. Overall left ventricular systolic function is normal with, an EF between 60 - 65 %. | |3. The right ventricle is normal in size and function. 4. No significant valvular abnormali ties. | + ------+ documented in this encounter Visit Diagnoses Not on filedocumented in this encounter Additional Health Concerns + + + + | Infection | Noted Time | Resolved Time | + + + + | Methicillin-resistant Staphylococcus aureus | 05/17/2013 3:06 PM | | | | PST | | + + + + documented as of this encounter"
--- OUTSIDE RECORDS SUMMARY | ~2019-07-05 | XMS | Encounter Summary ---
Demographics + + + | Address | [address] | | | [place] [address] | + + + | Home Phone | | + + + | Preferred Language | Unknown | + + + | Marital Status | Legally | + + + | Druze Affiliation | Unknown | + + + | Race | Unknown | + + + | Ethnic Group | Unknown | + + + Author + + + | Author | [facility] | | | and [place] | + + + | Organization | [facility] | | [...] Providers + +------+ + | Care Residential Solar Consultant Name | Role | Phone | + +------+ + | Deloris Tolbert | PCP | | + +------+ + Encounter Details +--------+ + + + + | Date | Type | Department | Care Team | Description | +--------+ + + + + | 10/08/ | Orders Only | [facility] | Provider, | | | 2018 | | [facility] | [address] | | | | | CONVERSION [address] | [address] | | | | | [address] [place], [place] | [place] [address] | | | | | [address] | | | | | | [phone] | | | +--------+ + + + [...]
--- OUTSIDE RECORDS SUMMARY | ~2019-07-05 | XMS | Encounter Summary ---
Demographics + + + | Address | [address] | | | [place] [address] | + + + | Home Phone | | + + + | Preferred Language | Unknown | + + + | Marital Status | Single | + + + | Tenriism Affiliation | BAP | + + + | Race | White | + + + | Ethnic Group | Not or | + + + Author + + + | Author | [facility] | + + + | Organization | [facility] | + + + | Address | Unknown | + + + | Phone | Unavailable | + + + Support + + +---------+ + | Name | Relationship | Address | Phone | + + +---------+ + | Raad Steward | ECON | Unknown | | + + +---------+ + Care Team Providers + +------+ + | Care Airborne Missions Systems Name | Role | Phone | + [...] [facility] | | | | | | [address] | | | | | | [address] [facility] | | | | | | [place], [facility] Floor | | | | | | [place], [place] | | | | | | [address] | | | | | | [phone] | | | +--------+ + + + [...] | | + +---------+ + + | [facility] DEPARTMENT OF | | | | | RADIOLOGY | | | | + +---------+ + + documented in this encounter Visit Diagnoses + + | Diagnosis | + + | Shoulder pain Pain in joint, shoulder region | + + documented in this encounter"
--- OUTSIDE RECORDS SUMMARY | ~2019-07-05 | XMS | Encounter Summary ---
Demographics + + + | Address | [address] | | | [place] [address] | + + + | Home Phone [...] Author + + + | Author | [facility] | + + + | Organization | [facility] | + + + | Address | Unknown | + + + | Phone | Unavailable | + + + Support + + +---------+ + | Name | Relationship | Address | Phone | + + +---------+ + | Raad Steward | ECON | Unknown | | + + +---------+ + Care Team Providers + +------+ + | Care Associate Media Director Name | Role | Phone | + +------+ + | Moni Erwin MD | PCP | | + +------+ + Encounter Details +--------+ + + + + | Date | Type | Department | Care Team | Description | +--------+ + + + + | 04/21/ | Tank House Supervisor | Orthopaedics at | Anna [facility], | Enchondroma (Primary | | 2011 | | [address] [address] | [address] | Dx) | | | | [address] | [facility] [place] | | | | | Mailcode: [id number] | [address] | | | | | [facility] | [phone] | | | | | [place], [place] | | | | | | [address] | | | | | | [phone] | | | +--------+ + + + [...]
--- OUTSIDE RECORDS SUMMARY | ~2019-07-05 | XMS | Encounter Summary ---
Demographics + + + | Address | [address] | | | [place] [address] | + + + | Home Phone | | + + + | Preferred Language | Unknown | + + + | Marital Status | Single | + + + | Rastafari Affiliation | BAP | + + + [...] Team Providers + +------+ + | Care Laundry Assistant Name | Role | Phone | + +------+ + | Elaina Emerson HALL CLERK | PCP | | + +------+ + Encounter Details +--------+ + + + + | Date | Type | Department | Care Team | Description | +--------+ + + + + | 04/05/ | Family Law Attorney | Orthopaedics at | [facility], | Shoulder pain | | 2010 | | [facility] [address] | MD [address] | (Primary Dx) | | | | [address] | [place], [place] | | | | | Mailcode: [id number] | [address] | | | | | [facility] | [phone] | | | | | [place], [place] | | | | | | [address] | | | | | | [phone] | | | +--------+ + + + [...]
--- OUTSIDE RECORDS SUMMARY | ~2019-07-05 | XMS | Encounter Summary ---
Demographics + + + | Address | [address] | | | [place] [address] | + + + | Home Phone | | + + + | Preferred Language | Unknown | + + + | Marital Status | Single | + + + | Samaritan Affiliation | BAP | + + + | Race | White | + + + | Ethnic Group | Not or | + + + Author + + + | Author | [facility] | + + + | Organization | [facility] | + + + | Address | Unknown | + + + | Phone | Unavailable | + + + Support + + +---------+ + | Name | Relationship | Address | Phone | + + +---------+ + | Raad Steward | ECON | Unknown | | + + +---------+ + Care Team Providers + +------+ + | Care Exercise Planner Name | Role | Phone | + +------+ + | Elaina Emerson NATURAL FOODS CLERK | PCP | | + +------+ + Encounter Details +--------+ + + + + | Date | Type | Department | Care Team | Description | +--------+ + + + + | 09/29/ | Auto Tester | Orthopaedics at | Anna [facility], | Enchondroma (Primary | | 2010 | | [facility] [address] | MD [address] | Dx) | | | | [address] | [facility] [place] | | | | | Mailcode: [id number] | [address] | | | | | [facility] | [phone] | | | | | [place], [place] | | | | | | [address] | | | | | | [phone] | | | +--------+ + + + [...]
--- OUTSIDE RECORDS SUMMARY | ~2019-07-05 | XMS | Encounter Summary ---
Demographics + + + | Address | [address] | | | [place] [address] | + + + | Home Phone | | + + + | Preferred Language | Unknown | + + + | Marital Status | Legally | + + + | Adventist Affiliation | Unknown | + + + | Race | Unknown | + + + | Ethnic Group | Unknown | + + + Author + + + | Author | [facility] | | | and [place] | + + + | Organization | [facility] | | | and [...] Team Providers + +------+ + | Care Steamboat Pilot Name | Role | Phone | + [...] | | [address] | [facility], | | | | | [place], [place] | [place] [address] | | | | | [address] | [phone] | | | | | [phone] | | | +--------+ + + + [...] | A Breezy: 0.86 m/s MV Dec Bollinger: 4.39 m/s2 MV DecT: 193.55 ms | | | MV E Breezy: 0.85 m/s MV E/A Ratio: 0.98 MV PHT: 56.13 ms | | | MVA By PHT: 3.91 cm2 Septal e': 0.06 m/s Septal E/e': 12.70 | | | Lateral e': 0.07 m/s Lateral E/e': 11.67 Head School Custodian: DBS | | | Authenticated by: JACK CULLEN MD Report Date/Time: -- | | | [id number]:[id number] | | + + + + ------+ [...] cmLVPWd: 0.82 cmLVOT Area: | | 3.42 [id number] Diam: 2.08 cm%FS: 30.18 %EF(Teich): 57.10 %ESV(Teich): [...] (A-L): | | 31.19 ml/m2LAAs A2C: 20.29 [id number] A-L A2C: 67.29 mlLALs A2C: 5.19 cmLAAs A4C: | | 15.79 [id number] A-L A4C: 48.57 mlLALs A4C: 4.36 cmRAAs: 13.50 qg1SPCSD A-L: | | 40.06 mlRAESV MOD: 37.17 mlRALs: 3.86 cmTAPSE: 1.74 cmAV maxP.36 mmHgAV | | meanP.24 mmHgAV Vmax: 1.15 m/Lorie Vmean: 0.86 m/Lorie VTI: 24.97 cmAVA Vmax: | | 3.10 cm2AVA (VTI): 3.29 ot7QWXW (Vmax): 0.00 cm2/m2AVAI (VTI): 0.00 cm2/m2LVOT | | maxP.42 mmHgLVOT meanP.48 mmHgLVSI Dopp: 41.07 ml/m2LVSV Dopp: 82.15 | | mlLVOT Vmax: 1.05 m/sLVOT Vmean: 0.74 m/sLVOT VTI: 24.01 cmMV A Breezy: 0.86 m/sMV | | Dec Bollinger: 4.39 m/s2MV DecT: 193.55 msMV E Breezy: 0.85 m/sMV E/A Ratio: 0.98MV | | PHT: 56.13 msMVA By PHT: 3.91 yp7Kqdwsq e': 0.06 m/sSeptal E/e': 12.70Lateral | | e': 0.07 m/sLateral E/e': 11.67 Head School Custodian: DBSAuthenticated by: JACK CULLEN, | | MDReport Date/Time: -- [id number]:51:11 IMPRESSION: 1. Essentially normal study.2. | | [...] A Breezy: 0.86 m/s | |MV Dec Bollinger: 4.39 m/s2 | |MV DecT: 193.55 ms | |MV E Breezy: 0.85 m/s | |MV E/A Ratio: 0.98 | |MV PHT: 56.13 ms | |MVA By PHT: 3.91 cm2 | |Septal e': 0.06 m/s | |Septal E/e': 12.70 | |Lateral e': 0.07 m/s | |Lateral E/e': 11.67 | | | |Head School Custodian: DBS | |Authenticated by: JACK CULLEN MD | |Report Date/Time: -- [id number]:51:11 | | | |IMPRESSION: | |1. Essentially [...]
--- OUTSIDE RECORDS SUMMARY | ~2019-07-05 | XMS | Encounter Summary ---
Demographics + + + | Address | [address] | | | [place] [address] | + + + | Home Phone | | + + + | Preferred Language | Unknown | + + + | Marital Status | Single | + + + | Scientologist Affiliation | BAP | + + + | Race | White | + + + | Ethnic Group | Not or | + + + Author + + + | Author | [facility] | + + + | Organization | [facility] | + + + | Address | Unknown | + + + | Phone | Unavailable | + + + Support + + +---------+ + | Name | Relationship | Address | Phone | + + +---------+ + | Raad Steward | ECON | Unknown | | + + +---------+ + Care Team Providers + +------+ + | Care Transportation Driver Name | Role | Phone | + +------+ + | Elaina Emerson CHIEF NURSING OFFICER | PCP | | + +------+ + [...] | | | proximal | Eastern | [address] | | | | | Humerus | [facility] | [address] | | | | | | & Fractur | [facility] [place] | | | | | | [address] | [address] | | | | | | [address] | Phone: | | | | | | [place], | [phone] | | | | | | [place] [address] | Fax: | | | | | | Phone: | [phone] | | | | | | [phone] | | | | | | | Fax: | | | | | | | [phone] | | +--------+--------+ + + + + [...] | | | | [address] | [place], [place] | | | | | Mailcode: [id number] | [address] | | | | | [facility] | [phone] | | | | | [place] | | | | | | [address] | | | | | | [phone] | | | +--------+---------+ + + + [...]
--- OUTSIDE RECORDS SUMMARY | ~2019-07-05 | XMS | Clinical Summary ---
Demographics + + + | Address | [address] | | | [place] [address] | + + + | Home Phone | | + + + | Preferred Language | Unknown | + + + | Marital Status | Single | + + + | Yarsanism Affiliation | BAP | + + + [...] Team Providers + +------+ + | Care Student Education Specialist Name | Role | Phone | + +------+ + PCP | Unavailable | + +------+ + Source Comments AMELIA is fully live on both EpicCare Ambulatory and EpicCare InPatient.[facility] Allergies + + + + + [...] | | | + +--------+ +--------+-------+---------+--------+ | [facility] | [facility] | xxxxxxxxxx | Effect | | | [...] Person | Self | [birth year] | | [address] | | | al/Fam | | 4 | [phone] | [place] [address] | | | beulah | | | 6 (Home) | | + +--------+ +--------+ + + | Albert Carcamo | Agency | Self | [birth year] | | [address] | | | | | 1956 | [phone] | [place] [address] | | | | | | 6 (Home) | | + +--------+ +--------+ + +
[~2019-07-05 16:59] MED LIST changes: +INDOMETHACIN50 MG PO; +PERCOCET 5-3251 EACH PO
--- OUTSIDE RECORDS SUMMARY | 2019-07-05 17:02 | XMS ---
PreManage Notification: RACHAEL GARCIA Security Senior Financial Reporting Analyst Events No recent Security Events currently on file CRITERIA MET - Group Notification - [facility] - Has Care Guidelines CARE PROVIDERS SERGIO HARRINGTON Nurse Practitioner 11/13/2018-Current PHONE: [phone] Russ has no Care Guidelines for this patient. Care History Medical/Surgical 11/13/2018 [facility] \T\middot;\T\nbsp; PATIENT IS A [place] MEMBER. \T\middot;\T\nbsp; PLEASE REFER PATIENT TO [facility] FOR NON EMERGENT MEDICAL NEEDS. \T\middot;\ T\nbsp; [facility] CAN SEE PATIENTS SAME DAY FOR APTS IF PATIENT CALLS FIRST THING IN THE MORNING. E.D. VISIT COUNT (12 MO.) 4 [facility] TOTAL 4 NOTE: Visits indicate total known visits. ED/UCC VISIT TRACKING (12 MO.) 07/05/2019 16:59 [facility] [place] [place] TYPE: Emergency COMPLAINT: - CHEST PAIN/ SOB 11/22/2018 14:43 [facility] [place] TYPE: Emergency COMPLAINT: - INTOXICATION DIAGNOSES: - Other fci (current) drug therapy - Hyperlipidemia, unspecified - Essential (primary) hypertension - termite control service representative (current) use of aspirin - Unspecified abdominal pain - Type 2 diabetes mellitus without complications - MCFP (current) use of insulin - Presence of coronary angioplasty implant and graft - Personal history of nicotine dependence - Gastro-esophageal reflux disease without esophagitis - Bee allergy status 11/12/2018 11:28 [facility] [place] TYPE: Emergency COMPLAINT: - ABD PAIN DIAGNOSES: - MCFP (current) use of insulin - Allergy status to sulfonamides status - Type 2 diabetes mellitus without complications - Personal history of nicotine dependence - Gastro-esophageal reflux disease without esophagitis - Other fci (current) drug therapy - Bee allergy status - MCFP (current) use of aspirin - Essential (primary) hypertension - Hyperlipidemia, unspecified - Unspecified abdominal pain - Calculus of ureter - Angina pectoris, unspecified 08/10/2018 15:17 [facility] [place] TYPE: Emergency COMPLAINT: - ABNORMAL LABS DIAGNOSES: - MCFP (current) use of insulin - Allergy status to sulfonamides status - Bee allergy status - Hyperglycemia, unspecified - Presence of coronary angioplasty implant and graft - Other termite treater helper (current) drug therapy - Personal history of nicotine dependence - termite control service representative (current) use of aspirin - Acquired absence of other specified parts of digestive tract - Type 2 diabetes mellitus with hyperglycemia - Essential (primary) hypertension INPATIENT VISIT TRACKING (12 MO.) No inpatient visits to display in this time frame [email or web address]
[2019-07-05] MEDS ORDERED: ESCITALOPRAM OX20 MG PO (17:10)
--- NOTE | 2019-07-06 01:18 | EKG ---
[facility] [address] [place], [place] [address] Signed Sinus rhythm with fusion complexes Inferior infarct , age undetermined Abnormal ECG When compared with ECG of 22-NOV-2018 16:21, fusion complexes are now present Confirmed by LIS CORRAL MD ([id number]) on 07/06/2019 1:18:30 AM Electronically Signed By: LIS CORRAL MD 07/06/19 0118 PATIENT NAME: RACHAEL GARCIA Electrocardiogram DATE OF : 51 PHYSICIAN: LIS CORRAL MD REPORT #: [id number] REPORT IS CONFIDENTIAL AND NOT TO BE RELEASED WITHOUT AUTHORIZATION
== END 2019-07-05 18:20 | disposition home or self-care (01) ==
LOC: ED 16:59
DX: K21.9 Gastro-esophageal reflux disease without esophagitis (principal); M54.9 Dorsalgia, unspecified; I10 Essential (primary) hypertension; E78.5 Hyperlipidemia, unspecified; E11.9 Type 2 diabetes mellitus without complications; Z87.891 Personal history of nicotine dependence; Z88.2 Allergy status to sulfonamides; Z91.030 Bee allergy status; Z79.899 Other long term (current) drug therapy; Z79.4 Long term (current) use of insulin
CPT/HCPCS: 71045; 80048; 83735; 84484; 85025; 93005; 93010; 99285-25

== ENCOUNTER → 2020-06-01 | Emergency (ER) | payer MEDICARE, MEDICAID, OTHER ==
[~2020-06-01] VITALS: Ht 162.6 cm; Wt 99.8 kg
[~2020-06-01] MED LIST changes: +ATORVASTATIN CA20 MG PO; +ESCITALOPRAM OX20 MG PO
--- OUTSIDE RECORDS SUMMARY | 2020-06-01 05:18 | XMS ---
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 Care History Medical/Surgical 11/13/2018 [facility] - PATIENT IS A YELLOWHAWK ELIGIBLE, \T\middot;\T\nbsp; PLEASE REFER PATIENT TO [facility] FOR NON EMERGENT MEDICAL NEEDS. \T\middot;\T\nbsp; [facility] CAN SEE PATIENTS SAME DAY FOR APTS IF PATIENT CALLS FIRST THING IN THE MORNING. E.D. VISIT COUNT (12 MO.) 2 [facility] TOTAL 2 NOTE: Visits indicate total known visits. ED/UCC VISIT TRACKING (12 MO.) 06/01/2020 05:16 [facility] [place] TYPE: Emergency COMPLAINT: - ABDOMINAL PAIN 07/05/2019 16:59 [facility] [place] TYPE: Emergency COMPLAINT: - CHEST PAIN/ SOB DIAGNOSES: - Type 2 diabetes mellitus without complications - Gastro-esophageal reflux disease without esophagitis - Other senior care (current) drug therapy - Personal history of nicotine dependence - Bee allergy status - Allergy status to sulfonamides - Hyperlipidemia, unspecified - group home (current) use of insulin - Essential (primary) hypertension - Dorsalgia, unspecified - Chest pain, unspecified INPATIENT VISIT TRACKING (12 MO.) No inpatient visits to display in this time frame [email or web address]
== END ==
LOC: ED 05:15
DX: R10.31 Right lower quadrant pain (principal); J43.9 Emphysema, unspecified; I10 Essential (primary) hypertension; K21.9 Gastro-esophageal reflux disease without esophagitis; E11.9 Type 2 diabetes mellitus without complications; E78.5 Hyperlipidemia, unspecified; Z87.891 Personal history of nicotine dependence; Z88.2 Allergy status to sulfonamides; Z91.030 Bee allergy status; Z79.899 Other long term (current) drug therapy; Z79.4 Long term (current) use of insulin; Z79.82 Long term (current) use of aspirin
CPT/HCPCS: 80053; 81001; 83690; 85025; 96374; 96375; 99284-25; C9113; J1170; J2405; J7030

== ENCOUNTER 2020-08-19 04:41 | Emergency (ER) | payer MEDICARE, MEDICAID, OTHER ==
[~2020-08-19] VITALS: Ht 162.6 cm; Wt 99.8 kg
[~2020-08-19 04:41] MED LIST changes: +ADULT ASPIRIN R81 MG PO; -ATORVASTATIN CA20 MG PO; +ATORVASTATIN CA40 MG PO; +VITAMIN D3125 MC1 PO; -VITAMIN D5000 UNI1 PO
--- OUTSIDE RECORDS SUMMARY | 2020-08-19 04:44 | XMS ---
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 Care History Medical/Surgical 11/13/2018 [facility] - PATIENT IS A YELLOWHAWK ELIGIBLE, \T\middot;\T\nbsp; PLEASE REFER PATIENT TO [facility] FOR NON EMERGENT MEDICAL NEEDS. \T\middot;\T\nbsp; [facility] CAN SEE PATIENTS SAME DAY FOR APTS IF PATIENT CALLS FIRST THING IN THE MORNING. E.D. VISIT COUNT (12 MO.) 2 [facility] TOTAL 2 NOTE: Visits indicate total known visits. ED/UCC VISIT TRACKING (12 MO.) 08/19/2020 04:42 [facility] [place] TYPE: Emergency COMPLAINT: - BODY ACHES,DIARRHEA 06/01/2020 05:16 [facility] [place] TYPE: Emergency COMPLAINT: - ABDOMINAL PAIN DIAGNOSES: - Other long term care phlebotomist (current) drug therapy - Bee allergy status - Allergy status to sulfonamides - Right lower quadrant pain - Essential (primary) hypertension - Emphysema, unspecified - Gastro-esophageal reflux disease without esophagitis - Personal history of nicotine dependence - middle or intermediate school principal (current) use of insulin - Hyperlipidemia, unspecified - middle or intermediate school principal (current) use of aspirin - Type 2 diabetes mellitus without complications INPATIENT VISIT TRACKING (12 MO.) No inpatient visits to display in this time frame [email or web address]
[2020-08-19] MEDS ORDERED: ONDANSETRON ODT4 MG PO (06:45)
== END 2020-08-19 08:08 | disposition home or self-care (01) ==
LOC: ED 04:41
DX: U07.1 COVID-19 (principal); E86.0 Dehydration; E87.1 Hypo-osmolality and hyponatremia; J43.9 Emphysema, unspecified; I10 Essential (primary) hypertension; K21.9 Gastro-esophageal reflux disease without esophagitis; E11.9 Type 2 diabetes mellitus without complications; E78.5 Hyperlipidemia, unspecified; Z88.2 Allergy status to sulfonamides; Z91.030 Bee allergy status; Z79.899 Other long term (current) drug therapy; Z79.4 Long term (current) use of insulin; Z79.82 Long term (current) use of aspirin
CPT/HCPCS: 71045; 80053; 85025; 96374; 99284-25; C9803; J2405; J7030; U0003

== ENCOUNTER 2020-08-28 02:46 | Inpatient (IN) | payer MEDICARE, OTHER, MEDICAID ==
[~2020-08-28] VITALS: Ht 162.6 cm; Wt 90.7 kg
[~2020-08-28 02:46] MED LIST changes: +ONDANSETRON ODT4 MG PO
--- OUTSIDE RECORDS SUMMARY | 2020-08-28 02:56 | XMS ---
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 Care History Medical/Surgical 11/13/2018 [facility] - [facility] A [facility] ELIG[facility], \T\middot;\T\nbsp; PLEASE REFER PATIENT TO [facility] FOR NON EMERGENT MEDICAL NEEDS. \T\middot;\T\nbsp; [facility] CAN SEE PATIENTS SAME DAY FOR APTS IF PATIENT CALLS FIRST THING IN THE MORNING. [facility]12 MO.) [facility] NOTE: Visits indicate total known visits. ED/UCC VISIT TRACKING (12 MO.) 08/28/2020 02:46 [facility] [place] TYPE: Emergency COMPLAINT: - DIFFICULTY BREATHING 08/19/2020 04:42 [facility] [place] TYPE: Emergency COMPLAINT: - BODY ACHES,DIARRHEA DIAGNOSES: - Type 2 diabetes mellitus without complications - Gastro-esophageal reflux disease without esophagitis - Emphysema, unspecified - [facility] (current) use of aspirin - Hyperlipidemia, unspecified - COVID-19 - Allergy status to sulfonamides - Hypo-osmolality and hyponatremia - Diarrhea, unspecified - Essential (primary) hypertension - Bee allergy status - Dehydration - Other tank terminal gauger (current) drug therapy - [facility] (current) use of insulin 06/01/2020 05:16 [facility] [place] TYPE: Emergency COMPLAINT: - ABDOMINAL PAIN DIAGNOSES: - Other tank terminal gauger (current) drug therapy - Bee allergy status - Allergy status to sulfonamides - Right lower quadrant pain - Essential (primary) hypertension - Emphysema, unspecified - Gastro-esophageal reflux disease without esophagitis - Personal history of nicotine dependence - [facility] (current) use of insulin - Hyperlipidemia, unspecified - [facility] (current) use of aspirin - Type 2 diabetes mellitus without complications INPATIENT VISIT TRACKING (12 MO.) No inpatient visits to display in this time frame [email or web address]
--- NOTE | 2020-08-28 06:00 | NUR ---
PT ARRIVED TO ROOM 130 AT 0455 VIA STRETCHER, MOVED OVER TO BED VIA DRAW SHEET. PT IS DROWSY, WAKES TO VOICE AND ANSWERS QUESTIONS APPROPRIATELY BUT IS SLOW TO RESPOND AND ONLY SPEAKS IN 3-4 WORD SENTENCES. REPORTS 4/10 PLEURITIC CHEST PAIN THAT HAS IMPROVED SINCE RECEIVING ASPIRIN IN E.D. LUNGS HAVE CRACKLES THROUGHOUT, VAPOTHERM IN PLACE AT 20L AND 100% FIO2, RESPIRATIONS LABORED. HR REGULAR. BOWEL TONES ACTIVE. SKIN HAS PATCHES OF PSORIASIS SCATTERED ON ARMS AND LEGS. KNEES APPEAR MOTTLED/HAVE SLOW CAP REFILL. PERIPHERAL PULSES ARE STRONG AND PERIPHERAL CAP REFILL IS BRISK, NO EDEMA NOTED. IV SITE IS INTACT AND PATENT, FIRST DOSE OF REMDESIVIR STARTED. NPO AT THIS TIME. BED ALARM SET FOR SAFETY.
--- NOTE | 2020-08-28 07:16 | EKG ---
[facility] [address] [address] [place] [address] Signed Sinus rhythm with fusion complexes Left axis deviation Right bundle branch block Abnormal ECG When compared with ECG of 05-JUL-2019 17:04, Right bundle branch block is now present Confirmed by LIS CORRAL MD ([id number]) on 08/28/2020 7:16:09 AM Electronically Signed By: LIS CORRAL MD 08/28/20 0716 PATIENT NAME: RACHAEL GARCIA Electrocardiogram DATE OF : 51 PHYSICIAN: LIS CORRAL MD REPORT #: [id number] REPORT IS CONFIDENTIAL AND NOT TO BE RELEASED WITHOUT AUTHORIZATION
--- NOTE | 2020-08-28 08:56 | NUR ---
PT AWAKE AND ALERT THIS AM, FLAT AFFECT. UP TO BSC 1 PA, PT IMPULSIVE. PT VOIDED 400 MLS AFTER BLADDER SCAN OF 348 AND HAD LOOSE BM. RR 24-30 AND PT SOBN W/ EXERTION. DENIES CHEST PAIN AT THIS TIME. SATIN 90% ON 25 L AND 100% FIO2. DR CORRAL CALLED AND ORDERS TO ADVANCE DIET TOLERATED. PT GIVEN CLEAR AND FULL LIX. CBG 370, 9 UNITS SS REGULAR INSULIN AND 50 UNITS LANTUS GIVEN.
--- NOTE | 2020-08-28 09:00 | NUR ---
ASSESSMENT COMPLETE. HEARD CRACKLES SCATTERED THROUGHOUT LUNGS. WOB INCREASED W/ ACTIVITY, RR 24-30 AND ARE SHALLOW AT REST. NOW THAT PT IS MORE AWAKE AND MOVING AROUND, INCREASE VAPOTHERM TO 30 L/100% SHE DESATS QUICKLY W/ MOVEMENT. PT PULLED O2 OFF TO BLOW NOSE AND DESATED TO 74%, PULSE OX SHOWED GOOD WAVE FORM ON READING. PT DENIES CHEST PAIN THIS AM, DOES REPORT FEELING SOB W/ MOVEMENT. HR SINUS RHYTHM IN 90'S AT REST. BOWEL TONES ACTIVE, AND PT DID HAVE SMALL LOOSE BM WITH VOID THIS AM. +2 PERIPHERAL PULSES. KNEES REPORTEDLY APPEARED MOTTLED, HOWEVER AFTER ASSESSMENT OF THEIR REDNESS, PT REPORTS IT IS D/T PSORIASIS AND IS NOT A NEW CHANGE. PT TOLERATED CLEAR & FULL LIX WELL. ATE 1 JELLO AND 1 PUDDING WELL DRANK PART OF CHICKEN BROTH. ICE WATER AT BEDSIDE. PT REFUSED ORAL MEDS THIS MORNING, AFTER EDUCATION PT DID ACCEPT [facility], HOWEVER SHE CONTINUED TO REFUSED OTHER ORAL MEDS STATING "I HAVEN'T BEEN TAKING THOSE AT HOME." PT REQUIRES FREQUENT EDUCATION, UNABLE TO FULLY ASSESS UNDERSTAND D/T PT'S FLAT AFFECT AND SLOWNESS TO RESPOND, PT APPEARS TO DENY NEEDS FOR EDUCATION R/T TO HEALTH STATUS AND MEDICATIONS. CALL LIGHT IN REACH AND BED ALARM ON. PT CALLS APPROPRIATELY, THOUGH IS IMPULSIVE AT TIMES.
[2020-08-28] MEDS ORDERED: EUCERIN CREME454 GM TOP (09:15)
[2020-08-28] MEDS ORDERED: ISOSORBIDE MONO30 MG PO (09:17)
[2020-08-28] MEDS ORDERED: LEVOTHYROXINE175 MCG PO (09:19)
--- NOTE | 2020-08-28 09:58 | NUR ---
PATIENT HAS BEEN MOSTLY SLEEPING ACCORDING TO STAFF. SHE IS ON HIGH-FLOW OXYGEN. 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 WILL WAIT ON ASSESSMENT BY PHONE FOR NOW.
--- NOTE | 2020-08-28 11:59 | NUR ---
PT IS UNDER PRECAUTIONS AND I AM UNABLE TO VISIT AT THIS TIME. WILL FOLLOW
--- NOTE | 2020-08-28 12:30 | NUR ---
BG 455, RECHECKED AND BG 442. DR CORRAL NOTIFIED. PT RECEIVED 13 UNITS OF HUMALOG FOR SS. DR CORRAL INCREASED LANTUS DOSE TO 70 UNITS BID. PT HAS FULL LIQUID TRAY FOR LUNCH AND IS TOLERATING WELL. NO ACUTE CHANGES TO ASSESSMENT. PT STATES SHE IS FEELING BETTER THROUGHOUT THE DAY. RAC IV REMAINS PATENT, SALINE LOCKED. CALL LIGHT IN REACH AND PT DENIES FURTHER NEEDS.
--- NOTE | 2020-08-28 13:30 | NUR ---
PT REQUESTING TO USE COMMODE, VOIDED 400 MLS YELLOW URINE. 1PA TO BSC. PT DID NOT DESAT W/ ACTIVITY THIS TIME. BACK TO BED, PT PRONING, LYING ON RIGHT SIDE. SATS INCREASED FROM 93% TO 96% PT REMAINS ON VAPOTHERM @ 25 L/100% FiO2. RT AND MD WOULD LIKE PT TO REMAIN AT 100% FiO2 FOR OXYGEN NEEDS AT THIS TIME AND SATING 92-94%. PT ATE 80% OF HER LUNCH AND HAS GOOD PO FLUID INTAKE. CALL LIGHT IN REACH. REPOSITIONED W/ PILLOWS FOR COMFORT.
--- NOTE | 2020-08-28 15:15 | NUR ---
OXYGEN FREQUENTLY BEING PULLED OFF BY PT. IN TO ADJUST VAPOTHERM CANNULA TO NOSE. PT INSTRUCTED TO LEAVE IN PLACE, DESATS TO 80-84% WHEN O2 OFF. PT VERBALIZED UNDERSTANDING. REQUESTING ASSISTANCE TO SIT UP, HOB ELEVATED AND PT REPOSITIONED. CALL LIGHT IN REACH.
--- NOTE | 2020-08-28 16:00 | NUR ---
PT CALLING TO USE BSC, VOIDED 450 MLS CONCENTRATED YELLOW URINE. PT ALSO HAD VERY SMALL SOFT BM. BACK TO BED. PT SELF-PRONING, NOW LYING ON LEFT SIDE AND REPOSITIONED W/ PILLOWS. PT SLIGHTLY ANXIOUS AFTER ACTIVITY, THOUGH SHE CONTINUES TO STATE SHE'S "FEELING BETTER." NO ACUTE CHANGES TO ASSESSMENT. OXYGENATION HAS IMPROVED W/ PRONING, SATING UP TO 96-100%. PT REMAINS ON 20 L/100% VAPOTHERM PER RT. CRACKLES AUSCULTATED IN BLL, CLEAR IN BUL. CALL LIGHT IS IN REACH. CBG 498, WILL NOTIFY DR CORRAL.
--- NOTE | 2020-08-28 16:55 | NUR ---
CBG 498, RECHECKED AND BG 455. DR CORRAL CALLED AND NOTIFIED BLOOD SUGAR CONTINUES TO BE HIGH. ORDERS TO ADD AN ADDITIONAL 2 UNITS OF HUMALOG X1 TO THE 2 UNITS OF SS HUMALOG SHE'LL RECEIVE.
--- NOTE | 2020-08-28 17:45 | NUR ---
15 UNITS SS HUMALOG GIVEN FOR CBG OF 455. PT ATE 100% OF DINNER AND TOLERATED WELL. GIVEN TYLENOL FOR 5/10 HEADACHE. PT ANXIOUS ABOUT STAYING ANOTHER NIGHT. UPDATED PT ON PLAN OF CARE AND GAVE REASSURANCE. PT LESS ANXIOUS NOW. WATCHING TV. CONTINUES TO PULL VAPOTHERM OFF FREQUENTLY. REINFORCED CANNULA WITH OPSITE OVER CHEEKS. PT STATES SHE IS COMFORTABLE AND DENIES FURTHER NEEDS.
--- NOTE | 2020-08-28 20:00 | NUR ---
SHIFT REPORT RECEIVED FROM REGLA ARIAS. IN TO PT ROOM TO REPLACE NASAL CANNULA THAT PT REPEATEDLY REMOVED. OPSITE USED TO SECURE TUBING TO CHEEK AND REINFORCED THE IMPORTANCE OF LEAVING IT ON. PT DENIES PAIN AT THIS TIME, AFFECT FLAT. LUNGS CLEAR WITH CRACKLES IN BASES, VAPOTHERM AT 20L @100% FIO2. HR REGULAR. BOWEL TONES ACTIVE. SKIN HAS RED SCALY PATCHES OF PSORIASIS SCATTERED TO ARMS AND LEGS. IV INTACT, PATENT, SALINE LOCKED. PT CURRENTLY LYING ON LEFT SIDE. DENIES NEEDS AT THIS TIME, CALL LIGHT WITHIN REACH.
--- NOTE | 2020-08-28 21:20 | NUR ---
DR. CORRAL NOTIFIED OF HIGH BLOOD SUGAR VALUE: INITIALLY 505 AND THEN 450 UPON RE-CHECK. PER DR. CORRAL, INCREASE HUMALOG DOSE BY 3 UNITS (FOR TOTAL OF 16 UNITS) AND GIVE LANTUS ORDERED (70 UNITS).
--- NOTE | 2020-08-28 22:40 | NUR ---
IN TO REPLACE SPO2 PROBE THAT HAD COME OFF, PT REQUESTS TO USE BATHROOM. UP WITH SBA TO [facility], PT VOIDED 450ML YELLOW URINE, SMEAR OF BM NOTED WHEN WIPING, NEW ATTENDS PROVIDED. WITH MOVEMENT, SATURATIONS DROPPED TO 80%, INCREASED VAPOTHERM TO 40L AND WAS ABLE TO TITRATE BACK TO 20L ONCE BACK IN BED. SPO2 NOW 90%.
--- NOTE | 2020-08-28 23:03 | NUR ---
PT CALLED BECAUSE SHE WAS FEELING COLD. AFEBRILE AT THIS TIME. WARM BLANKETS PROVIDED AND ROOM TEMPERATURE INCREASED.
--- NOTE | 2020-08-29 00:05 | NUR ---
PT CALLED BECAUSE HER FEET WERE COLD. WARM BLANKETS WRAPPED AROUND FEET. ASSESSMENT COMPLETED, UNCHANGED. VAPOTHERM CONTINUES AT 20L @100% FIO2. PT ALSO FEELING HUNGRY, WILL BRING HER A SANDWICH BOX. PT DENIES FURTHER REQUESTS AT THIS TIME, CALL LIGHT WITHIN REACH.
--- NOTE | 2020-08-29 01:25 | NUR ---
IN TO REPLACE PULSE OX PROBE THAT PT HAD TAKEN OFF. PT REPORTS 8/10 HEADACHE PAIN, PRN TYLENOL GIVEN.
--- NOTE | 2020-08-29 02:59 | NUR ---
SPO2 DECREASED TO 85%, IN TO CHECK ON PT WHO HAD PULLED NASAL CANNULA OUT OF NOSTRILS. REPLACED CANNULA AND SPO2 QUICKLY RETURNED TO 92%. PT STATES SHE IS NO LONGER COLD, ROOM TEMP DECREASED AND EXTRA BLANKETS REMOVED.
--- NOTE | 2020-08-29 03:39 | NUR ---
ASSESSMENT COMPLETED. PT REPORTS HEADACHE PAIN HAS RESOLVED SINCE PRN TYLENOL. PT DENIES FEELING COLD. LUNGS CONTINUE TO HAVE CRACKLES IN BASES, VAPOTHERM SETTINGS UNCHANGED. PT ASSISTED TO BOOST UP AND REPOSITION IN BED. DIET SODA PROVIDED PER REQUEST. PT DENIES FURTHER NEEDS, CALL LIGHT WITHIN REACH.
--- NOTE | 2020-08-29 04:35 | NUR ---
PT CALLED TO USE BATHROOM. INCREASED VAPOTHERM TO 40L @ 100% FOR ACTIVITY. UP WITH SBA TO BSC. VOIDED 350ML DAVID URINE, RN ASSISTED WITH PERICARE. RETURNED TO BED. VAPOTHERM TITRATED BACK TO 20L. PT TOLERATED WELL, DENIES FURTHER REQUESTS.
--- NOTE | 2020-08-29 05:39 | NUR ---
BLOOD DRAWN FROM LEFT HAND ON FIRST ATTEMPT FOR MORNING LABS. SMALL HEMATOMA NOTED AFTER BLOOD DRAW. PT TOLERATED WELL, DENIES FURTHER NEEDS.
--- NOTE | 2020-08-29 07:30 | NUR ---
REPORT RECEIVED FROM ELIANA ARAUZ. PT LYING ON BACK WITH VAPOTHERM IN PLACE 20L/100%. RESP AT REST SLIGHTLY LABORED. SPO2 93%.
--- NOTE | 2020-08-29 08:14 | NUR ---
CRITICAL VALUE GLUCOSE [address] CORRAL. PLAN TO GIVE AM INSULIN NOW AND RECHECK BLOOD SUGARS.
--- NOTE | 2020-08-29 09:41 | NUR ---
DR CORRAL IN TO SEE PT.
--- NOTE | 2020-08-29 09:41 | NUR ---
BLOOD SUGAR RECHECKED-415.
--- NOTE | 2020-08-29 10:55 | NUR ---
PT JUST FINISHED EATING HER BREAKFAST. VAPOTHERM WAS SET AT 40L/100% IN ANTICIPATION OF ACTIVITY. AFTER PT ATE BREAKFAST SHE GOT UP TO BSC WITH ASSIST. PT LOOKED VERY TIRED, SOB, AND SPO2 DROPPED TO 80%. ASSISTED BACK TO BED AND PT GOT INTO PRONE POSITION ONTO STOMACH. PT APPEARS VERY TIRED, SATS UP TO 87% ONCE BACK IN BED AND LYING STILL.
--- NOTE | 2020-08-29 11:52 | NUR ---
PT HAS BEEN IN PRONE POSITION FOR 1 HOUR. SATS HAVE COME UP SLOWLY TO 95% ON 40L/100%. RR 18, HR 70, RESP APPEAR SLIGHTLY LABORED.
--- NOTE | 2020-08-29 12:03 | NUR ---
PT MOVED SELF TO RIGHT SIDE. VAPOTHERM TURNED DOWN TO 20L/100% FIO2 SHE IS COMPLAINING OF AIR FLOW BEING UNCOMFORTABLE. RR 27, SPO2 95%.
--- NOTE | 2020-08-29 12:20 | NUR ---
PT HAS BEEN LYING ON RIGHT SIDE, CALLS TO USE BSC. VAPOTHERM TURNED UP TO 40L/100%, UP TO BSC, SAT ON BSC APPROX 1 MINUTE THEN LOOKED TOO TIRED TO CONTINUE, SPO2 DOWN TO 85%. HELPED BACK TO BED. SATS SLOWLY UP TO 88-89%. STILL HAD URGE TO VOID, ONTO BEDPAN WITH ASSIST. UNABLE TO VOID ON BEDPAN, ATTNEDS PLACED UNDER PT AND PT INFORMED OF PAD UNDER HER. PT LOOKING VERY TIRED WITH THIS ACTIVITY AND ADVISED TO JUST REST AND BREATHE.
--- NOTE | 2020-08-29 12:55 | NUR ---
DR CORRAL CALLED TO DISCUSS PT STATUS-DROPPING O2 SATS WITH MOVEMENT, INCREASED O2 NEEDS, HIGH BLOOD SUGAR. ORDER GIVEN FOR CELESTINE AND TO CONSULT WITH RT FOR BIPAP/CPAP.
--- NOTE | 2020-08-29 13:35 | NUR ---
PT PLACED ON BIPAP BY RT WITH SETTINGS OF 10/6 AND FIO2 75%. PT HAS BEEN TOLERATING MASK AND SPO2 FROM 90 TO 94% AND STATES SHE DOES FEEL LIKE SHE IS BREATHING BETTER WITH IT ON.
--- NOTE | 2020-08-29 14:54 | NUR ---
PT CONT TO REST WEARING BIPAP 10/6 75%, RR 24, TIDAL VOLUME 790 SPO2 95%.
--- NOTE | 2020-08-29 15:45 | NUR ---
DR CORRAL CALLED TO UPDATE ON STATUS.
--- NOTE | 2020-08-29 16:11 | NUR ---
RT IN DRAWING BLOOD GAS.
--- NOTE | 2020-08-29 17:53 | NUR ---
DR CORRAL UPDATED ON PT STATUS, CONT RR 30, RECENT ABG RESULTS AND CHEST XRAY. PT RESTING IN BED, WEARING BIPAP SPO2 96%.
--- NOTE | 2020-08-29 18:41 | NUR ---
PT CONT TO WEAR THE BIPAP, SPO2 97% AND RR 26-30.
--- NOTE | 2020-08-29 20:07 | NUR ---
RESTING, LAYING ON L SIDE. TUBING FROM BIPAP OFF AND PT IS TRYING TO RECONNECT IT WITHOUT SUCCESS, SATS DEC TO LOW 80'S BUT ALSO ARTIFACT ON SP02 MONITOR. IN TO RECCONECT AND SATS IN TO MID 90'S QIUCKLY. PT ASKING ABOUT DINNER, IS HUNGRY. TAKING WATER WELL.
--- NOTE | 2020-08-29 22:01 | NUR ---
PLACED PT ON VAPOTHERM AT 2100 SO COULD EAT. SETTINGS 90%FI02 AND 35L FLOW. PT ATE 1/2 SAND AND DRANK 1/2 CUP WATER AND IS NOW BACK TO SLEEP. SATS 94-95% RR 18-20.
--- NOTE | 2020-08-29 23:57 | NUR ---
HAS BEEN MOSTLY SLEEPING. AWAKENS EASILY BUT FALLS BACK TO SLEEP EASILY. CATH CARE DONE AND PT REPOSITIONED. NOW HAS FINE CRACKLES THROUGHOUT MOST LUNG TRIANA WHERE HAD BEEN ALMOST CLEAR EARLIER. PLACED BACK ON BIPAP FOR ALVEOLI RECRUITMENT.
--- NOTE | 2020-08-30 01:05 | NUR ---
AWAKE FOR DRINK OF WATER. BIPAP BACK IN PLACE.
--- NOTE | 2020-08-30 02:58 | NUR ---
AWAKE, WANTING BREAK FROM BIPAP. ON VAPOTHERM 90% FIO2 35L . GIVEN SUGAR FREE JELLO. DISCUSSED IMPORTANCE OF TURNING AND LAYING ON STOMACH. WILL TRY PRONING AFTER SNACK.
--- NOTE | 2020-08-30 03:41 | NUR ---
PT REPOSITIONED SELF TO R SIDE AFTER ENCOURAGED TO DO SO. IF VAPOTHERM CANNULA COMES OUT OF NOSE SATS DEC TO LOW 80'S.
--- NOTE | 2020-08-30 06:13 | NUR ---
HAS BEEN SLEEPING WELL. VAPOTHERM IN PLACE.SATS L0W 90'S. LAB DRAWN PER SL.
--- NOTE | 2020-08-30 07:36 | NUR ---
REPORT RECEIVED FROM NIGHTSHIFT RN, WILL CONTINUE PLAN OF CARE.
--- NOTE | 2020-08-30 09:24 | NUR ---
THIS RN IN TO ASSES PT AND ADMINISTER ORDERED MEDICATIONS. PT LAYING IN BED SLEEPING ON VAPOTHERM AT 35LPM AND 90% FIO2. PT AWOKE EASILY BUT TOOK SOME TIME TO FULLY AWAKE. PT ANSWERED ORIENTATION QUESTIONS RIGHT BUT WAS UNSURE WHEN ANSWERING THEM, PT WAS NOT ORIENTED TO LOCATION ([facility]) BUT KNEW SHE WAS IN THE HOSPITAL. PT DENIES PAIN AT THIS TIME AND SHORTNESS OF BREATH. PT MEDICATIONS ADMINISTERED ORDERED, 5 UNITS INSULIN ADMINISTERED PER SLIDING SCALE. PT THEN HELPED UP IN BED TO SIT UP AND EAT BREAKFAST. SHORTNESS OF BREATH NOTED WITH EXERTION, PT DENIED HAVING SHORTNESS OF BREATH. PT VAPOTHERM INCREASED TO 100% FIO2 DUE TO SPO2 IN THE 84% RANGE WHILE EATING AND THEN LATER INCREASED TO 40 LPM. SPO2 NOW IN THE 88% RANGE WHILE EATING AT 40LPM AND 100% FIO2. PT REPORTS NO FURTHER NEEDS AT THIS TIME AND IS CURRENTLY EATING, WILL CONTINUE PLAN OF CARE. CALL LIGHT IN REACH, BED IN LOWEST POSITION, IVF INFUSING ORDERED.
--- NOTE | 2020-08-30 09:25 | NUR ---
DR. CORRAL IN TO SEE PT AT THIS TIME.
--- NOTE | 2020-08-30 10:25 | NUR ---
MED REC COMPLETE
--- NOTE | 2020-08-30 10:30 | NUR ---
THIS RN IN TO CHECK ON PT. PT AWAKE LAYING IN BED ON VAPOTHERM. PT STATED SHE NEEDED TO HAVE A BM. PT ASSISTED UP TO THE BEDSIDE COMMODE AND WAS ABLE TO HAVE A SMALL BM. PT DENIED LIGHTHEADEDNESS WHILE ON THE COMMODE. NEW LINENS PLACED ON BED AT THIS TIME, SPRAGUE CARE DONE. PT THEN ASSISTED BACK TO THE BED. PT PLACED ON BIPAP AT THIS TIME, SPO2 NOW AT 94%. IV INFUSION COMPLETE AT THIS TIME, PT SALINE LOCKED. PT REPORTS NO FURTHER NEEDS WHEN ASKED AT THIS TIME AND IS NOW LAYING ON HER LEFT SIDE RESTING. CALL LIGHT IN REACH, BED IN LOWEST POSITION, WILL CONTINUE PLAN OF CARE.
--- NOTE | 2020-08-30 11:02 | NUR ---
RESPONDED TO PT CALL LIGHT. PT STATED SHE WANTED TO REST AND COME OFF THE MASK. PT PLACED BACK ON VAPOTHERM AT THIS TIME AT 35LPM 90% FIO2. PT SPO2 NOW AT 90-91%. PT REPORTS NO FURTHER NEEDS AT THIS TIME, WILL CONTINUE PLAN OF CARE. CALL LIGHT IN REACH, BED IN LOWEST POSITION.
--- NOTE | 2020-08-30 12:31 | NUR ---
THIS RN IN TO ASSESS PT AND ADMINISTER SCHEDULED MEDICATION. PT LAYING IN BED AWAKE AND ALERT ON VAPOTHERM AT THIS TIME. INSULIN ADMINISTERED PER ORDERS AND SLIDING SCALE (SEE MAR). PT NOW SITTING UP IN BED AT THIS TIME ON VAPOTHERM EATING LUNCH. PT DENIES PAIN AT THIS TIME AND REPORTS NO FURTHER NEEDS WHEN ASKED. CALL LIGHT IN REACH, BED IN LOWEST POSITION, WILL CONTINUE PLAN OF CARE.
--- NOTE | 2020-08-30 14:16 | NUR ---
THIS RN IN TO CHECK ON PT. PT STATED SHE WANTED A WASH CLOTH FOR HER FACE AT THIS TIME. ONE WAS PROVIDED TO THE PT. PT LAYING IN BED AWAKE AND ALERT AT THIS TIME ON THE VAPOTHERM, SPO2 93%. PT REPORTED NO OTHER NEEDS WHEN ASKED, WILL CONTINUE PLAN OF CARE. CALL LIGHT IN REACH, BED IN LOWEST POSITION.
--- NOTE | 2020-08-30 17:18 | NUR ---
THIS RN IN TO ASSESS PT. PT LAYING IN BED ON SIDE AWAKE AND ALERT WATCHING TV. PT PROVIDED WITH WARM BLANKET AND ICE WATER AT THIS TIME. SCHEDULED MEDICATION ADMINISTERED AT THIS TIME. BLOOD SUGAR TAKEN, VITALS TAKEN, PT ASSESSED AT THIST TIME. PT LINENS CHANGED PT HAD A SMALL SMEAR ON SHEETS, PERICARE PROVIDED. PT ALSO GIVEN FABRIC BREIFS PER HER REQUEST. PT ASSISTED IN REPOSITIONING UP IN THE BED AND WAS INFORMED ON PRONING. PT STATED SHE WAS WILLING TO PRONE AFTER DINNER. PT NOW SITTING UP IN BED WATCHING TV. PT ON THE VAPOTHERM, SPO2 92%. PT REPORTS NO FURTHER NEEDS WHEN ASKED, WILL CONTINUE PLAN OF CARE AND ADMINISTER ORDERED INSULIN WHEN PT'S DINNER ARRIVES.
--- NOTE | 2020-08-30 18:14 | NUR ---
THIS RN IN TO BRING PT HIS DINNER AND ADMINISTER ODERED TYLENOL. PT LAYING IN BED ON VAPOTHERM ALERT AND AWAKE. ORDERED INSULIN ADMINISTERED PER ORDERS AND SLIDING SCALE (SEE MAR). PT REPORTS NO FURTHER NEEDS AT THIS TIME AND IS NOW EATING AND WATCHING TV. CALL LIGHT IN REACH, BED IN LOWEST POSITION, WILL CONTINUE PLAN OF CARE.
--- NOTE | 2020-08-30 19:22 | NUR ---
THIS RN IN TO CHECK ON PT AND BRING HER A COFFEE PER HER REQUEST. PT AWAKE AND ALERT ON VAPOTHERM. PT STATED SHE NEEDED TO HAVE A BOWEL MOVEMENT. PT ASSISTED UP TO BEDSIDED COMMODE TO HAVE A BM AND WAS ABLE TO GET BACK INTO BED WITHOUT ASSISTANCE. PT NOW LAYING ON RIGHT SIDE ON VAPOTHERM AND REPORTS NO FURTHER NEEDS WHEN ASKED. PT ASKED IF SHE WANTED TO PRONE RIGHT NOW, PT STATED NO. PT ON VAPOTHERM, SALINE LOCKED, NO FURTHER NEEDS REPORTED. WILL CONTINUE PLAN OF CARE.
--- NOTE | 2020-08-30 20:00 | NUR ---
IN TO ASSESS PT. IS MORE AWAKE AND CONVERSANT TONIGHT. C/O STILES WITH VISUAL DISTURBANCES OF SEEING SPOTS AND STRIPES. GIVEN 650MG TYLENOL PO. WAS ABLE TO SPEAK ON PHONE WITH . IS LAYING ON L SIDE. DISCUSSED PRONING WHEN GO INTO CHECK BLOOD SUGAR LATER.
--- NOTE | 2020-08-30 21:35 | NUR ---
STATES STILES IS BETTER. PT ATTEMPTED TO PRONE BUT WAS NOT COMFORTABLE, IS LAYING ON SIDE AND TILTING DOWNWARD. SATS DEC TO88 WITH ACTIVITY. BS 307 AND GIVEN 9 UNITS INSULIN.
--- NOTE | 2020-08-31 00:10 | NUR ---
SLEEPING WITH VAPOTHERM IN PLACE.SATS LOW 90'S
--- NOTE | 2020-08-31 01:08 | NUR ---
AWAKENS EASILY, SLEEPING OFF AND ON. PREFERS TO CONT WITH VAPOTHERM WHEN ASKED IF SHE WOULD LIKE BIPAP. HAS BEEN ON L SIDE, PT TURNED TO RT WHEN INSTRUCTED TO DO SO.
--- NOTE | 2020-08-31 03:30 | NUR ---
SATS NOTED TO BE 85%, O2 CANNULA OUT OF NOSE, ON FORHEAD. REPLACED AND SATS BACK TO MID 90'S.
--- NOTE | 2020-08-31 05:00 | NUR ---
AWAKE, SLEEPING OFF AND ON. LABS DRAWN. TURNED TO L SIDE.
--- NOTE | 2020-08-31 06:48 | NUR ---
SATS HAVE BEEN 96-99%. FIO2 DEC TO 80%.
--- NOTE | 2020-08-31 07:36 | NUR ---
REPORT RECEIVED FROM NIGHTSHIFT RN, WILL CONTINUE PLAN OF CARE.
--- NOTE | 2020-08-31 09:25 | NUR ---
THIS RN IN TO ASSESS PT AND ADMINISTER ORDERED MEDICATION. PT LAYING IN BED SLEEPING ON VAPOTHERM AT THIS TIME BUT AWOKE EASILY. PT WAS ALERT AND ORIENTED X 4. SCHEDULED MEDICATION GIVEN AT THIS TIME, SLIDING SCALE INSULIN HELD PER PARAMETERS. PT REPORTS NO PAIN WHEN ASKED AND NO SOB. RT IN TO GIVE NEB TREATMENT AND ADJUST VAPOTHERM SETTINGS. PT NOW AT 30LPM AND 80% FIO2, SPO2 MAINTAINING AT 91-93%. PT NOW EATING BREAKFAST AT THIS TIME, IV MEDICATION INFUSING. PT REPORTS NO FURTHER NEEDS AT THIS TIME, WILL CONTINUE PLAN OF CARE. CALL LIGHT IN REACH, BED IN LOWEST POSITION.
--- NOTE | 2020-08-31 11:10 | NUR ---
THIS RN IN TO CHECK ON PT. PT LAYING IN BED ON HER SIDE ON VAPOTHERM. PT STATED SHE NEEDED TO HAVE A BM. PT ABLE TO GET UP AND USE BSC, SATURATIONS NOTED TO DECREASE TOT HE UPPER 80'S DURING THIS TIME WITH AN INC WORK OF BREATHING. PT ABLE TO GET BACK INTO BED WITHOUT ASSISTANCE AND SPO2 INCREASED BACK TO THE 90-91%. VAPOTHERM STILL ON 30LPM AND 80% FIO2. PT REPORTS NO FURTHER NEEDS AT THIS TIME WHEN ASKED, LUNCH ORDERED, WILL CONTINUE PLAN OF CARE. CALL LIGHT IN REACH, BED IN LOWEST POSITION.
--- NOTE | 2020-08-31 12:49 | NUR ---
THIS RN IN TO ASSESS PT. PT LAYING IN BED WATCHING TV AWAKE AND ALERT ON VAPOTHERM. PT BLOOD SUGAR ASSESSED AND INSULIN GIVEN PER SLIDING SCALE AND ORDERS. PT HELPED OVER TO BEDSIDE CHAIR TO EAT HER LUNCH. PT NOW EATING LUNCH AT THE BEDSIDE CHAIR WITH VAPOTHERM ON PREVIOUS SETTINGS, SPO2 MAINTING AT 93%. PT ASSESSED AT THIS TIME WELL. PT REPORTS NO FURTHER NEEDS WHEN ASKED AT THIS TIME, WILL CONTINUE PLAN OF CARE. CALL LIGHT IN REACH, BED IN LOWEST POSITION.
--- NOTE | 2020-08-31 13:40 | NUR ---
THIS RN IN TO CHECK ON PT. PT SITTING UP AT BEDSIDE CHAIR AWAKE AND ALERT ON VAPOTHERM WATCHING TV. PT STATED SHE NEEDED MORE LENGTH FOR HER MONITOR WIRES. PT'S MONITOR WIRES ON THE FLOOR UNTANGLED TO ALLOW THE PT TO MOVE HER ARMS MORE FREELY. PT REPORTS NO FURTHER NEEDS AT THIS TIME WHEN ASKED, WILL CONTINUE PLAN OF CARE. CALL LIGHT IN REACH, BED IN LOWEST POSITION.
--- NOTE | 2020-08-31 13:46 | NUR ---
STILL UNABLE TO VISIT PT DUE TO PRECAUTIONS. WILL CONTINUE TO FOLLOW
--- NOTE | 2020-08-31 14:55 | NUR ---
MICHAEL RN CALLED FOR AN UPDATE ON 130. RN WAS UPDATED ON PT'S STATUS AT THIS TIME.
--- NOTE | 2020-08-31 15:28 | NUR ---
PT DINNER ORDER TAKEN AT THIS TIME, PT SITTING UP AT BEDSIDE CHAIR ON THE VAPOTHERM. PT REPORTS NO FURTHER NEEDS WHEN ASKED AT THIS TIME, WILL CONTINUE PLAN OF CARE. CALL LIGHT IN REACH.
--- NOTE | 2020-08-31 17:05 | NUR ---
THIS RN IN TO ASSESS PT AND ADMINISTER SCHEDULED MEDICATION. SCHEDULED MEDICATION ADMINISTERED (SEE MAR). PT REPORTS NO PAIN AT THIS TIME. VITALS TAKEN, BLOOD SUGAR TAKEN, PT ASSESSED. CRACKLES HEARD THROUGHOUT PT'S L-SIDE, LUNGS CLEAR ON R-SIDE. VAPOTHERM CURRENTLY AT 25 LPM AND 70% FIO2. PT REPORTS NO FURTHER NEEDS AT THIS TIME AND IS SITTING AT BEDSIDE CHAIR WATCHING TV. CALL LIGHT IN REACH, WILL CONTINUE PLAN OF CARE.
--- NOTE | 2020-08-31 17:51 | NUR ---
THIS RN IN TO BRING PT HER DINNER AND ADMINISTER ORDERED INSULIN. INSULIN ORDERED AT THIS TIME PER SLIDING SCALE AND ORDER. PT NOW EATING HER DINNER WHILE SITTING AT BEDSIDE CHAIR ON THE VAPOTHERM. PT REPORTS NO FURTHER NEEDS WHEN ASKED, WILL CONTINUE PLAN OF CARE. CALL LIGHT IN REACH.
--- NOTE | 2020-08-31 18:38 | NUR ---
PT CHECKED ON AT THIS TIME. PT SITTING IN BEDSIDE CHAIR AWAKE AND ALERT ON VAPOTHERM WATCHING TV. PT REPORTS NO NEEDS AT THIS TIME WHEN ASKED, WILL CONTINUE PLAN OF CARE. CALL LIGHT IN REACH.
--- NOTE | 2020-08-31 19:58 | NUR ---
SITTING UP IN CHAIR, STATES IS NOT TIRED. TAKING WATER WELL. ASSISTED IN MAKING PHONE CALL TO [facility].
--- NOTE | 2020-08-31 21:15 | NUR ---
DOZED OFF IN CHAIR. AWAKENED FOR ASSESSMENT AND MEDS. BS 374 AND GIVEN11 UNITS REG INSULIN PER SS. NEB TX GIVEN AND SAUNDRA WELL. STATES DOES HAVE RUNNY NOSE TONIGHT, NO OTHER C/O. WANTS TO CONT TO SIT UP IN CHIAR.
--- NOTE | 2020-08-31 22:20 | NUR ---
PT BACK TO BED PER HER REQUEST. SAUNDRA WELL. FI02 DEC TO 65%. PT IS ENCOURAGED THAT SHE IS REQUIRING LESS OXYGEN AND GETTING BETTER. DID C/O FEELING SHAKY. NO OTHER C/O. LAYING ON L SIDE AND GIVEN WARM BLANKETS.
--- NOTE | 2020-09-01 00:34 | NUR ---
PT SLEEPING IN PRONE POSITION. SAT 97%
--- NOTE | 2020-09-01 01:17 | NUR ---
IS TO GIVE PT ICE WATER. STATES HAS NOT BEE SLEEPING IS WORRIED ABOUT WORLD EVENTS. ATTEMPTED TO REASURE PT. STATES IS OTHERWISE COMFORTABLE.
--- NOTE | 2020-09-01 02:33 | NUR ---
REQUESTING GLUCERNA WHICH IS UNAVAILABLE SO GIVEN SUGAR FREE PUDDING. HAS BEEN UNABLE TO SLEEP. GIVEN 650 MG TYLENOL TO HELP WITH REST. FEELING LIKE SHE NEEDS MORE AIR FLOW INC TO 30L ON VAPOTHERM. PT FEELS LIKE THAT HELPED. SATS WERE 93-94% PRIOR TO THAT.
--- NOTE | 2020-09-01 03:43 | NUR ---
USES CALL LIGHT APPROPRIATLY. UP TO BSC WITH MINMAL ASSIST TO HAVE LARGE SOFT UNFORMED STOOL. SAUNDRA BEING UP WELL AND DID NOT REQUIRE ASSIST GETTING BACK TO BED. ENCOURAGED TO LAY ON R SIDE, IS TILTED A LITTLE TOWARD R SIDE AT THIS TIME.
--- NOTE | 2020-09-01 05:40 | NUR ---
RESTING IN BED. HAS NOT SLEPT BUT STATES IS TIRED. VAPOTHERM CONT AT 30L AND 65%FIO2.
--- NOTE | 2020-09-01 06:54 | NUR ---
IS FINALLY ASLEEP. NO OTHER CHANGES.
--- NOTE | 2020-09-01 07:44 | NUR ---
REPORT REC'D FROM ELECTRIC SHIPYARD OPERATOR. PATIENT SLEEPING ON HER SIDE AT THIS TIME WITH VAPOTHERM SETTINGS OF 30L AND 65%. HR IN THE 60s, SINUS. RR 21.
--- NOTE | 2020-09-01 08:37 | NUR ---
IN PATIENT'S ROOM FOR BREAKFAST, MEDS, AND ASSESSMENT. RT IN ROOM AT THIS TIME. PT ON VAPOTHERM AT 37 L AND 55%. SP02 94%. RR 11-15 AT THIS TIME.
--- NOTE | 2020-09-01 09:33 | NUR ---
PATIENT REMAINS SITTING IN CHAIR WHILE REMDESEVIR IS INFUSING. VAPOTHERM UP TO 70% DURING EATING AND ACTIVITY. PT ABLE TO EAT 100% OF HER BREAKFAST. PT AGREEABLE TO STAY IN CHAIR UNTIL IV IS FINISHED, THEN WILL GET PATIENT INTO PRONE POSITION. CONTINUE TO MONITOR.
--- NOTE | 2020-09-01 10:30 | NUR ---
PATIENT FINISHES BREAKFAST AND HELPED BACK TO BED INTO PRONE POSITION. PT THINKS SHE CAN TOLERATE THIS FOR A WHILE. SP02 95% ON 70%, THEREFORE BEING TITRATED BACK DOWN. PT COVERED WITH BLANKETS TO KEEP HER WARM SHE IS STATING SHE HAS BEEN COLD A LOT. PT INSTRUCTED TO CALL WHEN SHE WANTS TO GET OUT OF THIS POSITION. CONTINUE TO MONITOR CLOSELY.
--- NOTE | 2020-09-01 10:49 | NUR ---
DISCUSSED PATIENT CONDITION WITH PRIMARY RN SHARMILA. PATIENT REMAIN OF HIGH AMOUTS OF FIO2 WHICH MAY MAKE ASSESSMENT VIA PHONE DIFFICULT AT THIS TIME. OVERALL SHARMILA RN STATES PATIENT IS DOING BETTER TODAY. PATIENT HAS COMPLETED COURSE OF REMDESIVIR. PER SHARMILA RN AND AM MEETING PATIENT TO REMAIN IN CCU FOR CARE TODAY. WILL DISCUSS FURTHER DISCHARGE PLAN WITH PATIENT WHEN SHE IS REQUIRING LESS O2.
--- NOTE | 2020-09-01 10:49 | NUR ---
PATIENT PRONING AT THIS TIME, SP02 IS 93% ON 37L AND 45% FI02 VAPOTHERM. HR IN THE 60-70s. CONTINUE TO MONITOR.
--- NOTE | 2020-09-01 13:27 | NUR ---
CCU STAFF STATE PT IS IMPROVING, STILL ON PRECAUTIONS. WILL FOLLOW ABLE.
--- NOTE | 2020-09-01 13:57 | NUR ---
PATIENT REMAINS SITTING UP ON EDGE OF BED AFTER EATING HER LUNCH. PT REQUESTING SOME TEA AND IS NOW SIPPING ON THAT. VAPOTHERM REMAINS AT 40L AND 45%. SP02 IS 93% AT THIS TIME. PT DENIES SHORTNESS OF BREATH. HR IN THE 80-90s. WILL CONTINUE TO MONITOR.
--- NOTE | 2020-09-01 14:31 | NUR ---
PATIENT REMAINS SITTING UP ON EDGE OF BED AND TOLERATING THIS WELL. PT'S DINNER ORDERED FOR HER. VAPOTHERM SETTINGS REMAINS 40L AND 45% with sp02 of 95% AT THIS TIME. HR IN THE 90s CURRENTLY. CONTINUE TO M ONITOR.
--- NOTE | 2020-09-01 15:38 | NUR ---
VAPOTHERM TURNED DOWN TO 35L AND 40% FI02. PT STILL RESTING ON LEFT SIDE AND SP02 IS 95%.
--- NOTE | 2020-09-01 18:40 | NUR ---
PATIENT CONTINUES TO REST ON LEFT SIDE, WITH SP02 96%. FI02 TURNED DOWN TO 35% ON VAPOTHERM, AND LITER FLOW IS AT 35 L WELL. PT GIVEN NEW GOWN. HR IN THE 70-80s. PT DENIES FURTHER NEEDS AND GIVEN A SUGAR FREE PUDDING PER REQUEST.
--- NOTE | 2020-09-01 19:28 | NUR ---
RECEIVED REPORT FROM REGLA SHELTON. pt RESTING IN BED ON LEFT SIDE. EYES CLOSED RESPIRATIONS REGULAR AND UNLABORED. RATE 15. CALL LIGHT WITHIN REACH.
--- NOTE | 2020-09-01 21:45 | NUR ---
IN TO DO ASSESSMENT. pt DENIES PAIN AND SOB. ON VAPOTHERM 35L 35%, TITRATED TO 40% pt WAS SITTING 87-88%. pt SITTING UP TALL IN BED EATING JELLO. FINE CRACKLES TO LOWER LOBES. ORIENTED TO SELF AND DATE. SPRAGUE OUTPUT LIGHT YELLOW. MEDICATIONS GIVEN (SEE MAR). CALL LIGHT WITHIN REACH. RT IN ROOM.
--- NOTE | 2020-09-01 22:39 | NUR ---
pt MOVED TO ROOM 117. pt MOVED ON 15L NON REBREATHER. AFTER MOVED PLACED ON 35L 40% TO MAINTAIN O2 SAT >90%. REPORT GIVEN TO UMESH ARAUZ. pt SETTLED IN BED. CALL LIGHT WITHIN REACH.
--- NOTE | 2020-09-01 23:10 | NUR ---
pt TRANSFERRED FROM CCU TO ROOM 117. pt ON VAPOTHERM 35L, 40%. RN MONISHA IN ROOM. SPO2 92% ON TELE 7.
--- NOTE | 2020-09-02 00:30 | NUR ---
NOTED PT O2 SATS READING 80. WENT TO ROOM PT WITHOUT HER OXYGEN, INFACT IT WAS UP ON HER FOREHEAD. ASKED PT TO PUT IN PLACE HER NUMBERS WERE LOW, SHE SAID WELL IT BOTHERS ME. BUT SHE DID PUT IT ON, AND SATS IMPROVED TO 88%.
--- NOTE | 2020-09-02 00:42 | NUR ---
pt AWAKE RESTING IN BED AWAKE. STATES "THIS NOSE THING IS FLUTTERING, ITS ANNOYING" DENIES ADDITIONAL NEEDS. SPRAGUE DRAINING YELLOW URINE. SPO2 91% ON TELE 7.
--- NOTE | 2020-09-02 01:55 | NUR ---
PHONE CALL FROM CCU SPO2 84%, pt SITTING UP IN BED WITH VAPOTHERM 35L, 40% FIO2 IN PLACE. pt DROPS TO 82% WHILE RNS ENTER ROOM. THIS RN AND RN TONG BOOSTED pt HIGHER IN BED, HOB ELEVATED. ENCOURAGED TO DEEP BREATHE THROUGH NOSE. IS X 2 AND CORANET UTILIZED AFTER SPO2 DOES NOT INCREASE. pt TITRATED TO MAX VAPOTHERM AFTER SLOW TITRATION OVER FIFTEEN MINUTES, 40L, 100% FIO2 AND SPO2 INCREASES TO LOW 90S. RT LORRIE NOW IN ROOM. ATTEMPTS TO TITRATE pt BACK DOWN ON VAPOTHERM MADE, RT REMAINS IN ROOM. DISCUSSED WITH pt BIPAP USE, pt AGREEABLE, BUT STATES "CAN I EAT MY SNACKS FIRST". ASSESSMENT COMPLETE BY THIS RN, LUNG SOUNDS CLEAR, DIMINISHED IN BASES. pt STATES "I ALWAYS HAVE A HARD TIME BREATHING WITH MY COPD". RT IN ROOM. CALL LIGHT IN REACH.
--- NOTE | 2020-09-02 02:26 | NUR ---
SPO2 92% ON TELE 7, HR 79. pt RESTING IN BED WATCHING TV.
--- NOTE | 2020-09-02 03:13 | NUR ---
CALL LIGHT ANSWERED pt STATES "HELP". SPO2 78% RNS ENTER ROOM, pt OUT OF BED, INSTRUCTED TO RETURN TO BED. pt INCONTINENT OF LIQUID STOOL. UP TO BSC, ADDITIONAL STOOL IN COMMODE. LINENS CHANGED, ATTENDS PLACED ON pt. pt BACK IN BED, SPO2 INCREASES TO 89-90% AT REST. VAPOTHERM 35L 60% FIO2 IN PLACE. CALL LIGHT IN LAP. BSC NEXT TO pt. SPRAGUE DRAINING YELLOW URINE. NO ADDITIONAL REQUESTS.
--- NOTE | 2020-09-02 05:50 | NUR ---
SPO2 DROPS TO 82%. IN pt ROOM, pt WITH VAPOTHERM ON CHIN. pt AWAKENS TO VOICE, VAPOTHERM BACK IN NOSE, SPO2 INCREASES TO 94% WITH 35L, 60% FIO2. VAPOTHERM TITRATED TO 35L, 50% FIO2 WHILE RN IN ROOM. VSS. AFEBRILE. SPRAGUE EMPTIED, 700 MLS YELLOW URINE. pt DENIES ADDITIONAL NEEDS AT THIS TIME. CALL LIGHT IN REACH. CLOSING EYES RN LEAVES ROOM.
--- NOTE | 2020-09-02 06:17 | NUR ---
PATIENT TRANSFERRED FROM CCU THIS SHIFT. BED REST WITH BATHROOM PRIVILEGES. EPISODE OF LIQUID STOOL THIS SHIFT, INCONTINENT DUE TO URGENCY. UP TO BSC, SPO2 DECREASED TO 78% WITH ACTIVITY, ATTEMPT TO AMBULATE TO RESTROOM. TITRATION OF VAPOTHERM THROUGHOUT SHIFT. pt CURRENTLY ON 35L OXYGEN, 50% FIO2, SPO2 92% ON TELE 7. LUNG SOUNDS CLEAR, DIMINISHED BILATERALLY IN BASES. USES CALL LIGHT APPROPRIATELY. SPRAGUE DRAINING CLEAR YELLOW URINE, QS OUTPUT.
--- NOTE | 2020-09-02 07:15 | NUR ---
this rn received report from silvestre davey. pt appears to be resting comfortably at this time sitting up in the bed. pt o2 sat on monitor noted at 94% on the vapotherm
--- NOTE | 2020-09-02 07:32 | NUR ---
Updated [facility] as per request.
--- NOTE | 2020-09-02 08:15 | NUR ---
this rn in pts room to do pts assessment, give meds and vitals at this time. pt on vapotherm and sating mid 90s with 30L and 50% fio2. pt has a flat affect but does answer all this rns questions. pt states that she has pain in her left ear. upon inspection everything looks wnl, this rn placed a 2x2 gauze under the o2 tubing to offload pressure. pt states that this provides some relief. this rn also provided pt with 650mg tylenol for pain. pt states that she has no other concerns at this time. all other vitals wnl. assessment unremarkable/ unchanged from previous assessments
--- NOTE | 2020-09-02 09:30 | NUR ---
this rn in pts room to do i&os and provide pt with breakfast.
--- NOTE | 2020-09-02 10:30 | NUR ---
this rn at pts door to check on pt. pt states that she would like to brush her teeth. this rn to assit pt with this when back in room
--- NOTE | 2020-09-02 12:15 | NUR ---
this rn in pts room to assist pt with a bed bath at this time. this rn provided shower cap to pt, brushed pts hair, and then braided it. this rn also provided pt with a bed bath. pt states that she is feeling much better now. pt reports not needing anything else at this time. this rn also per order of md removed pts catheter. pt tolerated this and education was provided.
--- NOTE | 2020-09-02 14:20 | NUR ---
pt appears to be side laying at this time on her left side. pt had asked another nurse about proning. pts sats appear to be improved with the new position- 95-96% on 30L and 50%fio2
--- NOTE | 2020-09-02 14:31 | NUR ---
PT HAS IMPROVED ACCORDING TO STAFF, BUT STILL UNDER C-19 PRECAUTIONS
--- NOTE | 2020-09-02 15:00 | NUR ---
this rn in pts room to do pts vitals and i&os. pt sitting up in bed. pt has obviously been up to the commode. pt was couseled to call staff when getting up, pt did not call, this rn reeducated pt about calling. pt states that she needs nothing else at this time.
--- NOTE | 2020-09-02 17:00 | NUR ---
this rn in pts room to get pts blood sugar. pt sitting up in bed. pt states that all she really needs is more ice water. this rn to provide that. this rn reeducated pt to use call light when getting up due to pt getting up while rn in room and the vapotherm tubing falling off. pt stated understanding but has not shown understanding.
--- NOTE | 2020-09-02 19:59 | NUR ---
Repositioned Vapotherm as pt had taking it off, sats 90%, 94% with it back on nc. Cooperative with assessment, lungs dim at bases, tele/cpox #[address] in place, using BSC, voided large amounts of yellow urine, no c/o pain . just finished eating dinner. no c/o. call light at hands reach
--- NOTE | 2020-09-02 21:48 | NUR ---
cOOP, vAPOTHERN CANNULA BACK ON PT TAKES IT OFF. UP TO BSC, VOIDING QS, NO C/O PAIN. CONTINUE TO REINFORCE TEACHAING TO KEEP NC IN PLACE, BO THOMPSON, TELE/CPOX IN PLACE, SATS 88% ON ROOM AIR, 91% ON VAPOTHERM
--- NOTE | 2020-09-02 23:58 | NUR ---
pt had taken vapotherm nasal prongs off, back on. c/o h/a, medicateed with tylenol, awake, watching tv. no sob noted or stated. Continues on isolation
--- NOTE | 2020-09-03 01:07 | NUR ---
CONTINUES ON AIRBORNE ISOLATION PRECAUTIONS, RESTING, EYES CLOSED, VAPOTHERM NASAL PRONGS OFF, RESPOSITIONED, TELE SATS 93% .
--- NOTE | 2020-09-03 04:08 | NUR ---
awake, watching tv, no further c/o h/a or ear pain, using vapotherm, telecpox sats 95%, call light at bedside, fresh fluids given, no c/o n/c
--- NOTE | 2020-09-03 05:07 | NUR ---
Pt continues on Airborne isolation. Vapotherm at 25L/50%, takes off and on. Lungs dim at bases, no cough noted when in room, c/o light sore throat. Ice chips given and no further c/o stated. Medicated x1 with Tylenol, effective. no furhter c/o. Has been awake most tof this shift, flat affect repositions self in bed, sitting up in bed watching tv. Up to bsc, voiding QS, tolerating fluids and diet well. slow to answer but follws instructions well.
--- NOTE | 2020-09-03 06:46 | NUR ---
C/O H/A AND INCREAESD l EAR PAIN, NO DRAINAGE NOTED, TENDER TO TOUCH. MEDICATED WITH TYLENOL 650MG PO.. STILL ON VAPOTHERM SATS 92%, NO SOB, UP TO BSC, VOIDING QS. BREAKFAST ORDERED. USES CALL LIGHT AND TOLERATING LIQUIDS AND DIET WELL
--- NOTE | 2020-09-03 07:22 | NUR ---
this rn received report from camille davey. pt appears to be resting comfortably at this time with oxygen sat noted on moitor at nurses station
--- NOTE | 2020-09-03 07:50 | NUR ---
this rn in pts room after noting pts o2 sat at 71% with 25L 50% fio2 vapotherm. this rn to stand at door, pt getting back to bed after using commode. this rn had pt sit up in bed and tried to consult pt to take deep breaths in through nose, out through mouth. pt more interested in watching tv than following commands. this rn had pt turn off tv. pt started following commands but sats were not coming up. this rn in pts room to ensure that pt would follow instructions. pt using IS, attempting to cough (non-productive and not deep enough) and taking deep long breaths. this rn placed pt on o2 monitor and watched tele box. both showed same sats pt sats come up to high 70's this rn turned up vapotherm to 35L and 100% FiO2. pts sat up to high 80s. lana rt in pts room this rn instructed pt to prone. pt sats up to 90s. md called, charge nurse notified.
--- NOTE | 2020-09-03 08:46 | NUR ---
pt still proning at this time 97% 35L 100% FiO2 37 degrees. bed alarm on pt to ensure that pt stays in this position in order to allow pt to get the corrt amount of oxygen. md orders to keep pt proned for about 2 hours and then try to back off oxygen. reassess then.
--- NOTE | 2020-09-03 09:15 | NUR ---
pt desated to 91% 35L 100% FIO2. pt sitting up. this rn told pt to lay back down. pt asking when she gets to eat. this rn discussed with pt that eating is not the priority right now and that her need for oxygen is more important.
--- NOTE | 2020-09-03 10:15 | NUR ---
this rn in pts room to have pt change prone positions. pt at 91% on 35l 100% fio2- this rn noted that pt was laying on pts tubing. pt to turn and prone on pts right side. pt sating 96% on 30L 75% fio2 vapoterm, hr 69. pt appears comfortable and supported by pillows. vitals done at this time. pt then stated that she had to pee. this rn turned pt back up to 35L 100% fio2 to ensure good air flow prior to movement. pt up to commode. pt desated to 79% on these settings above. pt appears fatigued. pt not using acessory muscles but does report shortness of breath with movement. pt back to bed and proned back to stomach for best sat results.
--- NOTE | 2020-09-03 12:13 | NUR ---
THIS RN IN PTS ROOM TO GIVE PT HER MID DAY MEDS AND HAVE PT CHANGE POSITIONS. PT TO SIT UP TO TAKE PILLS- SATS STAYING ABOVE 90% WITH 35L AND 100% FIO2- SATS DO DESAT WHEN PT EATING OR DRINKING. THIS RN TOOK PTS GLUCOSE PER MEAL TIME. PTS GLUCOSE 60 AND 58. THIS RN TO PROVIDE PT WITH GRAPE JUICE AND A VANILLA PUDDING. PT DENIES FEELING THAT HER BLOOD SUGAR IS LOW. THIS RN DID NOT PROVIDE PT WITH INSULIN COVERAGE THIS AM DUE TO PRIORITIZING PTS OXYGEN STATUS- PT ALSO DID NOT EAT DUE TO PRONE POSITION THIS AM. PT APPEARS DROWSY AND REPORTS THAT SHE ISNT FEELING GOOD TODAY. PTS TEMP WNL BUT PT WARM TO TOUCH DESPITE THIS RN BEING DOUBLE GLOVED PER PRECAUTIONS. PT TO SIT UP AT THIS TIME TO CHANGE POSITIONS FOR PRONE AND ATTEMPT TO EAT. WILL CONTINUE TO MONITOR CLOSELY.
--- NOTE | 2020-09-03 13:15 | NUR ---
THIS RN BACK IN PTS ROOM TO RECHECK PTS BLOOD SUGAR. BLOOD SUGAR IS NOW 172. PT APPEARS LESS DROWSY AND WAS ABLE TO EAT ALL OF HER LUNCH. PT STILL VERY TIRED BUT MORE ALERT AND ANWERS QUESTIONS FASTER, PT WAS NEVER VERY SLOW TO RESPOND IN THE FIRST PLACE.
--- NOTE | 2020-09-03 13:22 | NUR ---
PT ON PRECAUTIONS, HAS BEEN MOVED FROM CCU TO M/S-IMPROVING. WILL FOLLOW
--- NOTE | 2020-09-03 15:00 | NUR ---
THIS RN IN PTS ROOM DUE TO PTS O2 LEVEL DESATED TO 83%. THIS RN DISCUSSED WITH PT FROM THE DOOR TO PRONE NOW ON HER RIGHT SIDE. PT ABLE TO FOLLOW INSTRUCTIONS AND ABLE TO MOVE WELL IN THE BED. WHEN PT SETTELD INTO NEW POSITION SATS INCREASED TO GREATER THAN 90% 30L 90FiO2 35 DEGREES.
--- NOTE | 2020-09-03 16:55 | NUR ---
Attempted to call pt as she is + for covid and she does not answer her phone. To room and she is sleeping. Not awakened.
--- NOTE | 2020-09-03 17:26 | NUR ---
this rn in pts room to do pts blood sugar, i&os and vital signs. pt up to commode to use restroom. pt did not desat!!! this rn did hyperoxygenate pt for 5 mins prior to getting pt up to commode. pt tolerated well but did have notable respiratory rate getting up and then back to bed. pt did recover within 5 min time though.
--- NOTE | 2020-09-03 19:46 | NUR ---
coop with assessment, Flat affect, slow responseafterseveral cues. On Vapotherm at 30L, 85% and 35C. telecpox at 99% readings. Up to BSC, voided large amounts of urine. Back to bed. SL RAC patent. call light at bedside. tolerating fluids well, no emesis
--- NOTE | 2020-09-03 23:05 | NUR ---
resting, eyes closed, no distress, wearing vapotherm nasal prongs, tele/cpox #[address] sats 99%
--- NOTE | 2020-09-03 23:25 | NUR ---
PT CALLED TO LET US KNOW SHE WAS GOING TO USE THE BSC, OBSERVED PTs O2, NO FURTHER NEEDS AT THIS TIME
--- NOTE | 2020-09-04 00:11 | NUR ---
Continues on airborne isolation precautions, using vapotherm. tele#[address] sats 97%, eyes closed, laying on her stomach, calm, no distress, call light and fluids at bedside
--- NOTE | 2020-09-04 02:20 | NUR ---
HOB elevated, vapotherm in place, sats as per telecpox 100%, no distress, cont on airborne isolation precautions, call light and fluids at bedside
--- NOTE | 2020-09-04 03:07 | NUR ---
reseting, hob elevated, wearing vapotherm nasal prong in place, sats 98% as pr cpox/tele, eyes closed, no distress
--- NOTE | 2020-09-04 04:00 | NUR ---
Up to bsc, had bm and voiding qs, vapotherm prongs off nares, desatted down to 83% and went back up to 97% with vapotherm back on correctly, backa to bed, tolerated wel, pt denies c.o sob. repositioons self in bed, laying on her stomach, fresh water given, using call light correctly. no emesis, no c.o pain, had bm. does own [facility]
--- NOTE | 2020-09-04 04:55 | NUR ---
Pt continues on Airborne isolation precautions. Using Vapotherm at 30L,85% , tele/cpox#7 with readings 99% at this time. Pt desatted earlier on shift after taking nasal prongs up. Has been independent in room to BSC, keeping sats wnl. Voiding large amounts of urine, has had 2 bm's this shift. Tolerating liquids well. CBG 229, received 7 units Humalog and 50 units scheduled semglee Insulin. No c/o hypoglycemia, Medicated with Tylenol x1 per c/o Left ear and h/a with good pain relief, tolerating liquids and diet well, no emesis. uses call light. flat affect, slow response after several cues sometimes but appropriate response, continue to reinforce poc and med teaching.
--- NOTE | 2020-09-04 06:54 | NUR ---
RESTING, EYS CLOSED, WEARING VAPOTHERN NASAL PRONGS SATS 98% PER TELE/CPOX CONT ON AIRBORNE ISOLATION PRECAUTIONS
--- NOTE | 2020-09-04 09:00 | NUR ---
REPORT RECIEVED FROM NIGHT RN AND PT CARE RESUMED. PT. IS ALERT AND ORIENTED TO SELF AND EVENT, BUT NOT DATE OR PLACE. HER AFFECT IS FLAT. LUNGS DIM. THROUGHOUT LEFT SIDE AND CRACKLES PRESENT IN RLL. VAPOTHERM SET TO 30L, 85% FIO2. O2 SAT IS 96%. IV SITE IS BLEEDING AND APPEARS THAT PATIENT ACCIDENTALLY PULLED. IV DC'D WITH CATH. INTACT. DISCUSSED POC, PRONING AFTER BREAKFAST. PT. AGREEABLE. PT. LEFT RESTING WITH CALL LIGHT IN REACH.
--- NOTE | 2020-09-04 11:29 | NUR ---
PT. ASSISTED WITH PRONING. HAD A LARGE BM ON BEDSIDE COMMODE AND DID NOT CALL FOR ASSISTANCE. DISCUSSED SAFETY AND AMBULATION. ABSTRACTER IN THE ROOM.
--- NOTE | 2020-09-04 12:26 | NUR ---
PT ON PRECUTIONS, UNABLE TO VISIT. WILL FOLLOW NEEDED
--- NOTE | 2020-09-04 14:52 | NUR ---
Spoke with Myles, she is on 02 per nc and feeling better today. Cont. to plan to dc to home when cleared medically. Denies needs at this time.
--- NOTE | 2020-09-04 16:20 | NUR ---
THIS MORNING DID HER BLOOD SUGAR CHECK. ALSO ORDERED HER ALL OF HER MEALS INCLUDING TOMORROWS BREAKFAST. SHE GOT UP TO THE BEDSIDE COMMODE. SHE BRUSHED HER TEETH AND WASHED HER FACE WHILE IN BED. SET HER UP FOR BREAKFAST AND LUNCH.
--- NOTE | 2020-09-04 16:23 | NUR ---
DID HER BLOOD SUGAR CHECK BEFORE LUNCH.
--- NOTE | 2020-09-04 19:39 | NUR ---
SHIFT REPORT RECEIVED FROM CHANDANA ARAUZ. PT RESTING IN BED, WATCHING TV. PT ON VAPOTHERM. CALL LIGHT IN REACH.
--- NOTE | 2020-09-04 20:00 | NUR ---
IN TO GET VITALS, I&Os DONE, BSC IS EMPTIED, SNACK PROVIDED, COOL WASHCLOSH PROVIDED, PT HAS WATER AND TEA, TABLE AND CALL LIGHT IN PLACE AT THIS TIME
--- NOTE | 2020-09-04 20:35 | NUR ---
ASSESSMENT COMPLETED. GCS 15, A&O X4. LUNGS HAVE FINE CRACKLES. HEART TONES REGULAR. ABD SOFT, NONTENDER, BOWEL TONES ACTIVE. PT REPORTS CHRONIC NUMBNESS AND TINGLING IN FEET. SCHEDULED MEDS PROVIDED. LEFT EAR PAIN 8/10, PRN PAIN MED PROVIDED. PULSE AND MOTOR INTACT X 4 EXTREMITIES. BLE TRACE EDEMA. VAPOTHERM AT 15L, 60%. PT EDUCATION PROVIDED ABOUT DIET. NO OTHER NEEDS AT THIS TIME. CALL LIGHT IN REACH.
--- NOTE | 2020-09-04 20:53 | NUR ---
IN ROOM TO COSIGN INSULIN. PT DENIES NEEDS. CALL LIGHT IS CLOSE.
--- NOTE | 2020-09-04 22:27 | NUR ---
IN ROOM TO SET UP BABY MONITOR TO WATCH PT'S CPOX AT RN STATION. PT DENIES NEEDS AT THIS TIME. CALL LIGHT IS CLOSE.
--- NOTE | 2020-09-05 01:41 | NUR ---
PT RESTING IN BED, EYES CLOSED. RR EVEN, UNLABORED. VAPOTHERM AT 6L, 100%. SPO2 98%. CALL LIGHT IN REACH.
--- NOTE | 2020-09-05 02:44 | NUR ---
PT VAPOTHERM ALARMING FOR A KINKED HOSE, CORRECTED. ASSESSMENT COMPLETED. GCS 15, PT ORIENTED TO PERSON, PLACE AND TIME. LUNGS HAVE FINE CRACKLES. HEART TONES REGULAR. ABD SOFT, NONTENDER, BOWEL TONES ACTIVE. NUMBNESS AND TINGLING IN THE FEET, CHRONIC. CMS INTACT IN UPPER EXTREMITIES. PULSE AND MOTOR INTACT IN LOWER EXTREMITIES. VAPOTHERM AT 6L, 100%. SPO2 97%. SKIN DRY, SCALING. PT IN PRONE POSITION. NO OTHER NEEDS. CALL LIGHT IN REACH.
--- NOTE | 2020-09-05 03:13 | NUR ---
PT CPOX DROPPED TO 85%. SHE WAS UP TO BSC. REMINDED PT TO TAKE DEEP BREATHS IN THROUGH NOSE AND OUT THROUGH MOUTH, SPO2 RETURNED TO 90% SHORTLY AFTER. PT DENIES NEEDS AT THIS TIME. CALL LIGHT IS CLOSE, SPO2 BEING MONITORED.
--- NOTE | 2020-09-05 04:32 | NUR ---
PT RESTING IN BED. SPO2 97% ON VAPOTHERM 6L, 100%. CALL LIGHT IN REACH.
--- NOTE | 2020-09-05 06:09 | NUR ---
PT RESTING IN BED, EYES CLOSED. RR EVEN, UNLABORED ON VAPOTHERM 6L, 100%. SPO2 97% CALL LIGHT IN REACH.
--- NOTE | 2020-09-05 06:36 | NUR ---
SCHEDULED MED PROVIDED. SPO2 94% ON VAPOTHERM 6L, 100%. ICE WATER PROVIDED. NO OTHER NEEDS. CALL LIGHT IN REACH.
--- NOTE | 2020-09-05 07:05 | NUR ---
Report received from Nicki ARAUZ. Pt resting in bed with vapotherm in place, on tele #7 for pulse ox, also on room pulse ox with monitor broadcasting to nurses station. No needs at this time, call light in reach
--- NOTE | 2020-09-05 08:45 | NUR ---
Scheduled medications administered and assessment complete. Breakfast in room. VSS, I/O's complete, pt is independent to BSC in room. Fine crackles noted in both lungs throughout, HRR, bowel tones active. Pt states no SOB, has runny nose intermittently, and occasional nonproductive cough. Encouraged pt to use I.S. and cornet. Pt using vapotherm at this time, new orders to switch to NC, RT called to examine equipment
--- NOTE | 2020-09-05 10:15 | NUR ---
PRN tylenol administered per pt request. New IV inserted in L wrist per MD order for saline lock, pt tolerated well. RT in room to remove vapotherm, set up high flow NC at 6L with humidifier. Pt has no other needs at this time.
--- NOTE | 2020-09-05 11:15 | NUR ---
Pt resting in bed watching tv. Resp even and unlabored. No needs identified at this time.
--- NOTE | 2020-09-05 13:00 | NUR ---
IN ROOM TO ASSESS BLOOD SUGAR. PT IS SITTING IN BED. 6L NC IN PLACE. BLOOD SUGAR IS 155. LUNCH RE-ORDERED. PT DENEIS PAIN OR NEEDS. CALL LIGHT IN REACH. CPOX IN PLACE. SPO2 96%.
--- NOTE | 2020-09-05 13:30 | NUR ---
SS insulin and scheduled administered. VSS and I/O's. Fresh water and warm blanket provided. pt requested tomato soup, provided. Pt has no other needs at this time.
--- NOTE | 2020-09-05 15:05 | NUR ---
Pt resting in bed, watching tv. No needs at this time, call light in reach.
--- NOTE | 2020-09-05 17:39 | NUR ---
Scheduled medications and insulin administered. VSS and I/O's complete. Pt on 4L NC O2, tolerating well at 98%. Ice water provided. Pt has no needs at this time, call light in reach.
--- NOTE | 2020-09-05 19:39 | NUR ---
SHIFT REPORT RECEIVED FROM LATONYA ARAUZ. PT RESTING IN BED. NC@ 4L. NO NEEDS AT THIS TIME. CALL LIGHT IN REACH.
--- NOTE | 2020-09-05 22:30 | NUR ---
IN ROOM TO COSIGN INSULIN, GEORGINA ARAUZ IS IN ROOM AT THIS TIME.
--- NOTE | 2020-09-05 22:56 | NUR ---
ASSESSMENT, VS AND I&O COMPLETED. SPO2 96% ON 4L NC. GCS 15, A&O X4. LUNGS CLEAR IN UPPER LOBES, CRACKLES IN LOWER LOBES. HEART TONES REGULAR. ABD SOFT, NONTENDER, BOWEL TONES ACTIVE. NUMBNESS AND TINGLING IN HANDS AND FEET, CHRONIC. BLE TRACE EDEMA. MOTOR AND PULSES INTACT. IV WNL, CDI, FLUSHED WELL. SCHEDULED MEDS PROVIDED. LEFT EAR PAIN 8/10, PRN PAIN MED PROVIDED. ICE WATER AND SNACKS PROVIDED. NO OTHER NEEDS. CALL LIGHT IN REACH.
--- NOTE | 2020-09-05 23:43 | NUR ---
PT RESTING IN BED, WATCHING TV. NC @ 4L, SPO2 95%. CALL LIGHT IN REACH.
--- NOTE | 2020-09-06 00:57 | NUR ---
spo2 noted as low on monitor, in to check on pt, nc back in place o2 back in the 90s, karenllo provided at this time
--- NOTE | 2020-09-06 03:31 | NUR ---
PT RESTING IN BED, EYES CLOSED. RR EVEN, UNLABORED. SPO2 95% ON 4L NC. CALL LIGHT IN REACH.
--- NOTE | 2020-09-06 05:20 | NUR ---
IN TO GET VITALS, PT CALLED FOR FRESH ICE WATER, PROVIDED, EMPTIED BSC, RECORDED
--- NOTE | 2020-09-06 05:30 | NUR ---
PT HAD LOW SPO2 READING WHILE GETTING VITALS, HAD PT TAKE BREATHS, CALLED TO HAVE RN ASSISTANCE, HAD PT TRY COUGHING TO HELP BREAK UP HER CONGESTION, THEN USE I.S. AND REGLA CHOW THEN IN RM, CHANGED TELE AURELIO. NO FURTHER NEEDS,
--- NOTE | 2020-09-06 05:40 | NUR ---
MANISH VILLAFANA CALLED FROM ROOM D/T PT O2 SAT DROPPING. HAD PT USE I.S. AND ACAPELLA WITHOUT MUCH IMPROVEMENT. PT'S SPO2 REMAINED 80-85%. PT FOLLOWED PROMPTS TO TAKE DEEP BREATHS IN THROUGH HER NOSE AND EXHALE THROUGH MOUTH. INCREASED PT'S O2 TO 6LNC IN ORDER TO KEEP HER BETWEEN 85-87%. CALLED LORRIE KHAN HE WILL COME ASSESS PT, PRIMARY RN GEORGINA IS NOW IN ROOM.
--- NOTE | 2020-09-06 06:02 | NUR ---
ASSESSMENT COMPLETED. MANISH VILLAFANA NOTIFIED RN OF DECREASED SPO2 AND RN YFN HAD INCREASED NC TO 6L. SPO2 CURRENTLY AT 88%. RT CALLED. PT REPOSITIONED, NOSE CLEARED, NEW FINGER MONITOR PLACED. LUNG CLEAR IN ALL LOBES EXCEPT LEFT LOWER LUNG HAS FINE CRACKLES. RT IN ROOM. SPO2 UP TO 90%. PT DENIES SOB. SKIN WARM AND DRY, APPROPRIATE COLOR. IV WNL. NO CHANGES TO NUMBNESS AND TINGLING. NO OTHER NEEDS. CALL LIGHT IN REACH.
--- NOTE | 2020-09-06 07:00 | NUR ---
Report received from Nicki ARAUZ. Pt resting in bed with eyes closed, even and unlabored respirations visualized. No needs identified at this time, will continue plan of care.
--- NOTE | 2020-09-06 08:30 | NUR ---
Pt on commode when this RN enters, tele alarm begins alarming for pt SPO2 of 82%. O2 titrated up, pulse ox probe adjusted, pt encouraged to take deep breaths through nose, listened to lung sounds. Pt denies SOB or discomfort, no cough noted. Pt continues to stay in 80-88% range, RT in room and provides O2 via high flow NC. Pt stays at 86%-88%. MD at door, orders for vapotherm received, RT set up. Pt responds to this and SPO2 reflects 95%, vapotherm settings continue to be titrated accordingly. CBG checked, reads at 64. Pt given juice & breakfast, checked 15 min later and reads at 97. Short acting insulin held, long acting provided. Verified with MD and charge nurse. Pt denies sx of hypoglycemia. Scheduled medications administered. Assessment complete. New orders for imaging received, will cont plan of care
--- NOTE | 2020-09-06 09:00 | NUR ---
THIS NURSE CALLED TO BEDSIDE WITH PRIMARY NURSE. PRIMARY NURSE REPORTS BLOOD SUGAR OF 66. DR SALTER NOTIFIED. ORDERS TO ADMINSTER LANTUS. HOLD ALL HUMALOG. PRIMARY NURSE NOTIFIED. RT IN ROOM WITH NURSE.
--- NOTE | 2020-09-06 10:30 | NUR ---
THIS NURSE AND RT TO [facility]. TRANSFERED PT TO NON-REBREATHER TO TRANSPORT TO CT SCAN. PT MAINTAINED SATURATIONS OF 93-99%. DOWN TO ST THEN BACK TO ROOM. PT TOLLERATED WELL. PT NOW ON CPAP PER RT.
--- NOTE | 2020-09-06 12:00 | NUR ---
Scheduled insulin and SS provided. Pt's commode was not next to bed and patient had 1x incontinence of urine. Bed bath provided with hair washed, combed and braided. Linens changed, floor wiped down and disinfected. Commode close to bed, wipes and attends at bedside within reach. Pt tolerated this movement from bed to BSC and back with 6L 02 NC, titrated back down to 4L once back to bed at SPO2 98%. Fresh water provided, no other needs reported at this time. Call light in reach.
--- NOTE | 2020-09-06 14:39 | NUR ---
PATIENT IN BED RESTING. VITALS AND I&O'S CHARTED. FRESH WATER GIVEN. CALL LIGHT IN REACH. NO FURTHER NEEDS AT THIS TIME.
--- NOTE | 2020-09-06 15:37 | NUR ---
Pt taken a snack, adjusted SPO2 sensor, warm blanket provided. Pt resting on L side with 4L o2 in place. Pt denies needs.
--- NOTE | 2020-09-06 16:30 | NUR ---
Rounded on patient who is resting in bed watching tv, denies needs at this time and states "anything sounds good for dinner", no needs identified at this time
--- NOTE | 2020-09-06 17:40 | NUR ---
Scheduled insulin, meds and SS insulin provided for CBG of 226. Dinner provided. VSS, I/O's complete. Pt had large BM x1. Remains on 4L O2, SPO2 96% and pt states no SOB. Fresh water and diet soda provided. Pt states disappointed regarding continued hospital stay, this RN reassured and discussed all progress pt has made to date. Made plan for potential shower and set goals for tomorrow. Pt agreeable to this and appears comforted. Call light in reach.
--- NOTE | 2020-09-06 19:00 | NUR ---
SHIFT REPORT RECEIVED FROM DAYSHIFT REGLA HANKS, pt AWAKE AND RESTING IN BED. 4LNC IN PLACE, O2 SAT MID 90'S. CPOX IN PLACE, RR EVEN AND UNLABORED. NO DISTRESS NOTED.
--- NOTE | 2020-09-06 21:50 | NUR ---
ASSESSMENT COMPLETE, VSS. pt ON CPOX WITH 4LNC IN PLACE. O2 SAT MID 90'S, HR WNL. pt DENIES SOB AND CHEST PAIN, LUNG SOUNDS CLEAR AND DIMINISHED. RR EVEN AND UNLABORED, NO DISTRESS NOTED. pt INSTRUCTED TO CALL MEDICAL SERVICES COORDINATOR WHEN READY TO GO TO SLEEP SO CPAP MACHINE CAN BE PLACED. pt VERBALIZES UNDERSTANDING. BSC WITHIN EACH REACH, pt INDEPENDENT IN ROOM. NO FURTHER NEEDS, CALL LIGHT IN REACH.
--- NOTE | 2020-09-06 23:45 | NUR ---
pt CALLED, BSC EMPTIED, RT LORRIE IN ROOM TO ASSIST pt WITH CPAP MACHINE. CPAP MASK IN PLACE, SETTINGS PER RT LORRIE. NO FURTHER NEEDS, CALL LIGHT IN REACH. O2 SAT MID TO UPPER 90'S.
--- NOTE | 2020-09-07 00:50 | NUR ---
CALL LIGHT ANSWERED. pt REMOVED FROM CPAP REQUESTED. pt STATES "ITS HURTING MY SINUS AGAIN". 4L OXYGEN BY NC APPLIED. PRIMARY RN NOTIFIED. CALL LIGHT IN REACH. NO ADDITIONAL REQUESTS.
--- NOTE | 2020-09-07 03:03 | NUR ---
PRN TYLENOL GIVEN PER pt REQUEST FOR 8/10 LEFT EAR PAIN, SEE EMAR. ASSESSMENT COMPLETE, NO NEW CHANGES OR CONCERNS. SPO2 MONITOR FROM TELE#[address], RANGING FROM MID TO UPPER 90'S. DENIES CHEST PAIN AND SOB. 4LNC WITH HUMIDIFICATION IN PLACE. WARM BLANKET, FRESH WATER AND DIET SODA ALL PROVIDED, NEW TELE BATTERY ALSO IN PLACE. CALL LIGHT IN REACH.
--- NOTE | 2020-09-07 06:30 | NUR ---
spo2 sustaining 87-89%, nc titrated to 5lnc, now wnl and maintaining in mid 90's. scheduled thyroid med given, see emar. remaining vss, i&o's complete. PT reports pain in left ear, unable to give pain medication, warm rag provided per PT request. no further needs, call light in reach.
--- NOTE | 2020-09-07 07:05 | NUR ---
Report received from Franci ARAUZ. Pt resting in bed with 5L NC in place, SPO2 98%. Pt waves through door and states no needs. Call light in reach, will continue plan of care.
--- NOTE | 2020-09-07 08:26 | NUR ---
Scheduled medications and insulins provided, CBG 94, pt denies sx of hypoglycemia. Assessment complete, pt states no SOB. Currently on 5L O2 NC, SPO2 92% at this time. Lungs clear to dim, intermittent dry cough noted. VSS, pt A+O. Discussed plan of day and POC, pt agreeable. Fresh water provided, no other needs, call light in reach.
--- NOTE | 2020-09-07 10:09 | NUR ---
IN TO CHECK BLOOD PRESSURE PER DR MILLAN. BLOOD SUGAR WAS 229. DR SALTER UPDATED. I&O'S COMPLETED. OCCUPATIONAL THERAPY IN ASSESSMENT COMPLETED.
--- NOTE | 2020-09-07 11:34 | NUR ---
Pt's partner Shawn called for update, this RN returned phone call and updated him on patient's condition and plan of care. All questions answered and he is agreeable to POC. Shawn states pt has a CPAP machine at home.
--- NOTE | 2020-09-07 12:00 | NUR ---
Insulin and lunch provided to patient who is sitting in bed with NC in place at 5L. SPO2 97%, denies SOB or any other symptoms at this time.
--- NOTE | 2020-09-07 12:40 | NUR ---
PATIENT CALLED FOR HAVING AN ACCIDENT. WENT IN TO ASSIST PATIENT. PATIENT TO BSC, IND. LINENS CHANGED. BED BATH GIVEN WITH WARM BATH WIPES. NEW GOWN PROVIDED. PATIENT NOW BACK TO BED, IND. CALL LIGHT IN REACH. NO FURTHER NEEDS AT THIS TIME.
--- NOTE | 2020-09-07 13:05 | NUR ---
Pt requests to shower. This RN in to assist. High flow O2 connected to NC and pt bumped to 6L, pivot transfers to rolling shower chair to prevent desaturation, pt maintains spo2 in 89-95% range. Showered and oral care, thomas care and hair done. Pt back to bed, warm blankets provided. Vital signs completed and pt is stable, denies SOB.
--- NOTE | 2020-09-07 14:45 | NUR ---
This RN back in room to assess pt condition after shower. Pt has maintained SPO2 in 90's, denies SOB. Pt c/o ear pain r/t NC, pt switched to oxymask at 5L at this time, SPO2 at 97%. Pt denies wanting to prone at this time, encouraged to both prone and wear her CPAP machine at night to promote recovery, pt is receptive and agrees to try later on. Call light in reach, no other needs at this time.
--- NOTE | 2020-09-07 16:50 | NUR ---
This RN noted pt's SPO2 to be at 79% on tele board, pt sitting on commode without O2 on. This RN in room to assess pt and put O2 on, placed at 6L NC, pt returns to 93% and denies SOB. Returned to 4L NC. CBG checked, 140. Will continue to monitor
--- NOTE | 2020-09-07 17:30 | NUR ---
Scheduled medications administered. Pt SPO2 99-100% on 4L NC. Dinner taken to patient, no further needs.
--- NOTE | 2020-09-07 19:32 | NUR ---
REPORT RECEIVED FROM REGLA HANKS. pt ON ISOLATION PRECAUTIONS. SPO2 96% ON 4L OXYGEN BY PEDRO.
--- NOTE | 2020-09-07 21:15 | NUR ---
pt RESTING IN BED ASLEEP. AWAKENS TO VOICE. INDEPENDENT TO BSC FOR VOID. WITH ACTIVITY SPO2 88-89% WITH 4L OXYGEN BY NC. AFTER A FEW MINUTES SPO2 INCREASES TO 92-93% WITH 4L OXYGEN BY NC IN PLACE. LUNG SOUNDS CLEAR, DIMINISHED. pt DENIES SOB. DENIES PAIN AT THIS TIME. CBG 200. SS INSULIN ADMINISTERED PER CRITERIA. SUGAR FREE SNACKS PROVIDED REQUESTED. CALL LIGHT IN REACH. NO ADDITIONAL REQUESTS. URINE EMPTIED FROM BSC.
--- NOTE | 2020-09-07 23:27 | NUR ---
pt RESTING IN BED AWAKE, WATCHING TV. SPO2 95% WITH 4L OXYGEN BY NC IN PLACE. FRUIT PROVIDED REQUESTED.
--- NOTE | 2020-09-08 00:30 | NUR ---
pt RESTING IN BED IN PRONE POSITION. SPO2 95% WITH 4L OXYGEN BY NC ON TELE 7.
--- NOTE | 2020-09-08 02:05 | NUR ---
CALL LIGHT ANSWERED. pt C/O 7-10/20 PAIN IN LEFT EAR. PRN TYLENOL ADMINISTERED. ASSESSMENT COMPLETE. FINE CRACKLES AUSCULTATED LLL. 4L OXYGEN BY NC IN PLACE, SPO2 91% ON TELE 7 CPOX. pt CONTINUES TO REFUSE CPAP OFFERED. URINE EMPTIED FROM BSC. SUGAR FREE JELLO AND PUDDING PROVIDED, FRESH ICE WATER. CALL LIGHT IN REACH.
--- NOTE | 2020-09-08 04:24 | NUR ---
CHECKED ON pt. RESTING IN BED WITH EYES CLOSED. BREATHING EQUAL AND UNLABORED. 4L OXYGEN BY NC IN PLACE. SPO2 96% ON TELE CPOX.
--- NOTE | 2020-09-08 06:14 | NUR ---
pt ON 4L OXYGEN BY ME THROUHGOUT SHIFT. SPO2 DROPS TO 88% WHEN pt UP TO COMMODE, MID TO HIGH 90S AT REST. TELE [address] pt REFUSES CPAP THIS SHIFT OFFERED. INDEPENDENT TO BSC, QS VOIDS. CONTINUES TO COMPLAIN OF LEFT EAR PAIN, PRN TYLENOL ADMINISTERED FOR PAIN.
--- NOTE | 2020-09-08 06:20 | NUR ---
IN pt ROOM FOR MEDICATION ADMINISTRATION. pt AWAKE, SPO2 WNL ON 4L OXYGEN BY NC. BREAKFAST ORDER PLACED. URINE EMPTIED FROM COMMODE. ICE WATER PROVIDED. NO ADDITIONAL REQUESTS.
--- NOTE | 2020-09-08 06:43 | NUR ---
Is and Os charted, garbage emptied, vitals charted. Patient in bed watching tv, breakfast order placed. Call light left within reach.
--- NOTE | 2020-09-08 07:31 | NUR ---
REPROT RECEIVED. PT LEFT UNDISTURBED. TELE [address] SPO2 IS 98% ON 4L NC. CALL LIGHT IN REACH.
--- NOTE | 2020-09-08 09:25 | NUR ---
IN FOR ASSESSMENT AND MED PASS. PT ON 4L NC. SPO2 IS AT 93%. LUNGS WITH CRACKLES IN BASES. PT REPORTS LEFT EAR PAIN. TYLENL ADMINISTERED. PT REPROTS THIS PAIN IS CHRONIC. VITLAS AND I&O'S COMPLETED. CALL LIGHT IN REACH. OCCUPATIONAL THERAPY IN FOR ASSESSMENT.
--- NOTE | 2020-09-08 09:51 | NUR ---
PHYSICAL THERAPY IN ROOM.
--- NOTE | 2020-09-08 10:50 | NUR ---
CALL MADE TO MAKAYLA TO DISCUSS DISCHARE OF HIS . INSTRUCTED TO BRING IN CPAP MACHINE FOR RT TO EVALUATE. RT CALLED AND UPDATED ON PLAN.
--- NOTE | 2020-09-08 11:15 | NUR ---
Pt feeling better. Plans on dc today. Awaiting PT and RT o2 qualifier. [facility] Will send when all complete. Pt will dc to home with her spouse.
--- NOTE | 2020-09-08 11:28 | NUR ---
02 qualifier completed. Spoke with pt and she would like to use which ever DME company can deliver the quickest. Called [facility] [place] and they have a van here today with concentrator and can deliver as soon as I fax orders. Pt would like to use [facility] [place]. RX, o2 qualifier, face sheet, DC summary, H&P faxed to Awa at [facility] [place].
--- NOTE | 2020-09-08 11:30 | NUR ---
Pt denies preference for HH. Would like whichever agency can arrive the soonest. Called [facility] and they are 21/2 weeks out, called [facility] and they could admit middle to end of next week. Will send referral to [facility]. Pt updated they will call her this week for and appointment time.
--- NOTE | 2020-09-08 12:50 | NUR ---
Called and spoke with Awa. Pt is on her way home with a portable 02, per Awa their rep is on the way to the pts home to set up concentrator.
--- NOTE | 2020-09-08 12:51 | NUR ---
DISHCARGE INSTRUCTIONS PROVIDED TO PT AND . ALL QUESTION ANSWERED. DC'D IV. CATH INTACT. VITALS TAKEN AND STABLE. PT WHEELED OUT BACK TO .
== END 2020-09-08 12:40 | disposition home health service (06) | DRG 177 ==
LOC: ED 02:46 → CCU 04:23 → MS 09-01 22:19
PROVIDERS: ADMIT Internal Medicine; ATTEND Internal Medicine
PROC: XW033E5 Introduction of Remdesivir Anti-infective into Peripheral Vein, Percutaneous Approach, New Technology Group 5 (ICD-10-PCS; principal; 2020-08-28)
PROC: 5A09357 Assistance with Respiratory Ventilation, Less than 24 Consecutive Hours, Continuous Positive Airway Pressure (ICD-10-PCS; 2020-08-29)
DX: U07.1 COVID-19 (principal); J12.82 Pneumonia due to coronavirus disease 2019; J12.81 Pneumonia due to SARS-associated coronavirus; J96.01 Acute respiratory failure with hypoxia; F33.9 Major depressive disorder, recurrent, unspecified; J43.9 Emphysema, unspecified; E11.65 Type 2 diabetes mellitus with hyperglycemia; K58.9 Irritable bowel syndrome, unspecified; E78.5 Hyperlipidemia, unspecified; K21.9 Gastro-esophageal reflux disease without esophagitis; E03.9 Hypothyroidism, unspecified; I25.10 Atherosclerotic heart disease of native coronary artery without angina pectoris; G47.33 Obstructive sleep apnea (adult) (pediatric); Z95.5 Presence of coronary angioplasty implant and graft; Z88.2 Allergy status to sulfonamides; Z79.899 Other long term (current) drug therapy; Z79.82 Long term (current) use of aspirin; Z79.4 Long term (current) use of insulin
CPT/HCPCS: 36600; 51702; 71045; 71260; 80048; 80053; 80076; 82803; 83880; 84484; 85025; 93005; 93010; 94640; 94660; 94668; 94760; 94761; 94799; 97110; 97162; 97165; 97535; 99285-25; A9270; J1650; J1815; J7050; J8540; Q9967

== ENCOUNTER 2020-09-23 23:03 | Emergency (ER) | payer MEDICARE, MEDICAID, OTHER ==
[~2020-09-23] VITALS: Ht 162.6 cm; Wt 90.3 kg
[~2020-09-23 23:03] MED LIST changes: +EUCERIN CREME454 GM TOP; +LEVOTHYROXINE175 MCG PO
--- OUTSIDE RECORDS SUMMARY | 2020-09-23 23:10 | XMS ---
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 Care History Medical/Surgical 11/13/2018 [facility], \T\middot;\T\nbsp; PLEASE REFER PATIENT TO [facility] FOR NON EMERGENT MEDICAL NEEDS. \T\middot;\T\nbsp; [facility] CAN SEE PATIENTS SAME DAY FOR APTS IF PATIENT CALLS FIRST THING IN THE MORNING. [facility] NOTE: Visits indicate total known visits. ED/UCC VISIT TRACKING (12 MO.) 09/23/2020 23:04 [facility] [place] TYPE: Emergency COMPLAINT: - RT FOOT SWELLING 08/28/2020 02:46 [facility] [place] [facility] [place] TYPE: Emergency COMPLAINT: - DIFFICULTY BREATHING 08/19/2020 04:42 [facility] [place] [facility] [place] TYPE: Emergency COMPLAINT: - BODY ACHES,DIARRHEA DIAGNOSES: - Type 2 diabetes mellitus without complications - Gastro-esophageal reflux disease without esophagitis - Emphysema, unspecified - assisted (current) use of aspirin - Hyperlipidemia, unspecified - COVID-19 - Allergy status to sulfonamides - Hypo-osmolality and hyponatremia - Diarrhea, unspecified - Essential (primary) hypertension - Bee allergy status - Dehydration - Other prison (current) drug therapy - assisted (current) use of insulin 06/01/2020 05:16 [facility] [place] TYPE: Emergency COMPLAINT: - ABDOMINAL PAIN DIAGNOSES: - 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 - Bee allergy status - Allergy status to sulfonamides - Right lower quadrant pain - Essential (primary) hypertension - Emphysema, unspecified - Gastro-esophageal reflux disease without esophagitis - Personal history of nicotine dependence - manager intermediate (current) use of insulin - Hyperlipidemia, unspecified - assisted (current) use of aspirin - Type 2 diabetes mellitus without complications INPATIENT VISIT TRACKING (12 MO.) 08/28/2020 04:23 [facility] [place] TYPE: Medical Surgical COMPLAINT: - COVID PNEUMONIA DIAGNOSES: - Other prison (current) drug therapy - Pneumonia due to SARS-associated coronavirus - Hypothyroidism, unspecified - manager intermediate (current) use of aspirin - assisted (current) use of insulin - COVID-19 - Gastro-esophageal reflux disease without esophagitis - Presence of coronary angioplasty implant and graft - Acute respiratory failure with hypoxia - Obstructive sleep apnea (adult) (pediatric) - Atherosclerotic heart disease of [place] coronary artery without angina pectoris - Acute respiratory failure with hypoxia - Hyperlipidemia, unspecified - Irritable bowel syndrome without diarrhea - Major depressive disorder, recurrent, unspecified - Emphysema, unspecified - Type 2 diabetes mellitus with hyperglycemia - Allergy status to sulfonamides - Pneumonia due to SARS-associated coronavirus [email or web address]
== END 2020-09-24 00:20 | disposition home or self-care (01) ==
LOC: ED 23:03
DX: M79.89 Other specified soft tissue disorders (principal); M79.604 Pain in right leg; J43.9 Emphysema, unspecified; I10 Essential (primary) hypertension; K21.9 Gastro-esophageal reflux disease without esophagitis; E78.5 Hyperlipidemia, unspecified; J44.9 Chronic obstructive pulmonary disease, unspecified; Z88.2 Allergy status to sulfonamides; Z91.030 Bee allergy status; Z79.4 Long term (current) use of insulin; Z79.899 Other long term (current) drug therapy; Z79.82 Long term (current) use of aspirin
CPT/HCPCS: 93971; 99283-25

== ENCOUNTER 2023-04-05 15:01 | Emergency (ER) | payer MEDICARE, OTHER ==
[~2023-04-05] VITALS: Ht 162.6 cm; Wt 89.7 kg
--- NOTE | ~2023-04-05 | EKG ---
[facility] [address] [place], [place] [address] Draft EK completed, results pending confirmation PATIENT NAME: RACHAEL GARCIA Electrocardiogram DATE OF : 51 PHYSICIAN: PRELIMINARY REPORT #: [id number] REPORT IS CONFIDENTIAL AND NOT TO BE RELEASED WITHOUT AUTHORIZATION
[2023-04-05 15:18] LABS: BASOPHILS 0.7 % (0-2); EOSINOPHILS 2.1 % (0-6); HEMATOCRIT 40.7 % (35.0-50.0); HEMOGLOBIN 13.7 g/dL (12.0-18.0); LYMPHOCYTES 16.5 % (24-44); MCH 29.1 (27-36); MCHC 33.6 g/dl (30-36); MCV 86.6 fl (81-99); MONOCYTES 5.1 % (0-12); NEUTROPHILS 75.6 % (39-80); PLATELET COUNT 195 K/uL (140-440); RBC 4.71 M/ul (4.3-5.7); RDW 14.2 (10.5-15.0)
[2023-04-05 15:38] LABS: ALBUMIN 3.3 g/dL (3.4-5.0); ALBUMIN/GLOBULIN RATIO 0.77 (1.1-2.4); ANION GAP 14.3 (7-21); BILIRUBIN, TOTAL 1.1 ng/dL (0.2-1.0); BUN/CREATININE RATIO 9.47 (6.0-28.6); CALCIUM 8.5 mg/dL (8.5-10.1); CREATININE, SERUM 0.95 mg/dL (0.55-1.02); MAGNESIUM 1.6 mg/dL (1.8-2.4); POTASSIUM 4.3 mmol/L (3.5-5.1); PROTEIN, TOTAL 7.6 g/dL (6.4-8.2)
[2023-04-05] MEDS ORDERED: ONDANSETRON ODT4 MG PO (18:28)
[2023-04-05] MEDS ORDERED: MORPHINE SULFAT15 MG PO (18:28)
[2023-04-05 18:43] VITALS: BP 107/59
== END 2023-04-05 18:43 | disposition home or self-care (01) ==
LOC: ED 15:01
PROVIDERS: Emergency Medicine
DX: K85.90 Acute pancreatitis without necrosis or infection, unspecified (principal); I45.10 Unspecified right bundle-branch block; I25.119 Atherosclerotic heart disease of native coronary artery with unspecified angina pectoris; I10 Essential (primary) hypertension; J43.9 Emphysema, unspecified; E11.9 Type 2 diabetes mellitus without complications; K58.9 Irritable bowel syndrome, unspecified; K21.9 Gastro-esophageal reflux disease without esophagitis; E78.5 Hyperlipidemia, unspecified; Z86.16 Personal history of COVID-19; Z90.49 Acquired absence of other specified parts of digestive tract; Z88.2 Allergy status to sulfonamides; Z91.030 Bee allergy status; Z79.4 Long term (current) use of insulin; Z79.82 Long term (current) use of aspirin; Z79.890 Hormone replacement therapy; Z79.899 Other long term (current) drug therapy
CPT/HCPCS: 36415; 71045; 74177; 80053; 83690; 83735; 84484; 85025; 93005; 93010; 99285-25; A9270

== ENCOUNTER 2024-04-06 11:47 | Emergency (ER) | payer MEDICARE, OTHER ==
[~2024-04-06] VITALS: Ht 162.6 cm; Wt 86.2 kg
[~2024-04-06 11:47] MED LIST changes: +MORPHINE SULFAT15 MG PO
[2024-04-06] MEDS ORDERED: SODIUM CHLORIDE 0.9% 1,000 ML IV ONE (12:30)
[2024-04-06] MEDS ORDERED: DIPHENOXYLATE/ATROPINE 1 EA TAB PO ONE (12:30)
[2024-04-06 12:37] LABS: BASOPHILS 0.9 % (0-2); EOSINOPHILS 3.3 % (0-6); HEMATOCRIT 39.7 % (35.0-50.0); HEMOGLOBIN 13.1 g/dL (12.0-18.0); MCH 28.8 (27-36); MCHC 32.9 g/dl (30-36); MCV 87.4 fl (81-99); MONOCYTES 5.8 % (0-12); PLATELET COUNT 172 K/uL (140-440); RBC 4.54 M/ul (4.3-5.7)
[2024-04-06 12:55] LABS: ALBUMIN 3.2 g/dL (3.4-5.0); ALBUMIN/GLOBULIN RATIO 0.82 (1.1-2.4); ANION GAP 12.2 (7-21); BILIRUBIN, TOTAL 1.1 ng/dL (0.2-1.0); BUN/CREATININE RATIO 16.49 (6.0-28.6); CALCIUM 8.9 mg/dL (8.5-10.1); CREATININE, SERUM 0.97 mg/dL (0.55-1.02); POTASSIUM 4.2 mmol/L (3.5-5.1); PROTEIN, TOTAL 7.1 g/dL (6.4-8.2)
[2024-04-06] MEDS ORDERED: INTRINSI B12-F1 EACH PO (12:58)
[2024-04-06] MEDS ORDERED: OXYBUTYNIN CHLO10 MG PO (12:58)
[2024-04-06] MEDS ORDERED: OMEPRAZOLE20 MG PO (12:59)
[2024-04-06] MEDS ORDERED: IBUPROFEN400 MG PO (13:00)
[2024-04-06] MEDS ORDERED: BASAGLAR K100 UNIT/1 (13:03)
[2024-04-06] MEDS ORDERED: LOMOTIL TABLET1 EACH PO (13:38)
[2024-04-06] MEDS ORDERED: ONDANSETRON ODT8 MG PO (13:38)
[2024-04-06] MEDS ORDERED: INSULIN GLARGINE-YFGN 100 UNIT/ML ML SUB-Q ONE (13:45)
[2024-04-06] MEDS ORDERED: ondansetron HCL 4 MG/2 ML VIAL IV ONE (13:45)
[2024-04-06 13:58] VITALS: BP 100/48
== END 2024-04-06 14:00 | disposition home or self-care (01) ==
LOC: ED 11:47
PROVIDERS: Emergency Medicine
DX: R19.7 Diarrhea, unspecified (principal); E86.0 Dehydration; I10 Essential (primary) hypertension; K21.9 Gastro-esophageal reflux disease without esophagitis; E11.9 Type 2 diabetes mellitus without complications; E78.5 Hyperlipidemia, unspecified; J43.9 Emphysema, unspecified; Z86.16 Personal history of COVID-19; Z88.2 Allergy status to sulfonamides; Z91.030 Bee allergy status; Z79.4 Long term (current) use of insulin; Z79.890 Hormone replacement therapy; Z79.82 Long term (current) use of aspirin; Z79.899 Other long term (current) drug therapy
CPT/HCPCS: 36415; 80053; 84484; 85025; 96360; 99284-25; A9270; J7030

== ENCOUNTER 2024-08-07 11:38 | Emergency (ER) | payer MEDICARE, OTHER ==
[~2024-08-07] VITALS: Ht 162.6 cm; Wt 83.0 kg
[~2024-08-07 11:38] MED LIST changes: +BASAGLAR K100 UNIT/1; +INTRINSI B12-F1 EACH PO; +LOMOTIL TABLET1 EACH PO; +OMEPRAZOLE20 MG PO; +ONDANSETRON ODT8 MG PO; +OXYBUTYNIN CHLO10 MG PO
[2024-08-07 11:58] LABS: EOSINOPHILS 4.7 % (0.7-5.8); HEMOGLOBIN 13.1 g/dL (11.2-15.7); LYMPHOCYTES 19.9 % (19.3-51.7); MCH 27.7 PG (25.6-32.2); MCHC 33.6 g/dL (32.2-35.5); MCV 82.5 fL (79.4-94.8); MONOCYTES 5.5 % (4.7-12.5); NEUTROPHILS 68.7 % (34.0-71.1); PLATELET COUNT 168 K/uL (182-369); RBC 4.73 M/uL (3.93-5.22)
[2024-08-07] MEDS ORDERED: ondansetron HCL 4 MG/2 ML VIAL IV ONE (12:00)
[2024-08-07] MEDS ORDERED: ASPIRIN 81 MG CHEW PO ONE (12:00)
[2024-08-07 12:19] LABS: ALBUMIN 3.2 g/dL (3.4-5.0); ALBUMIN/GLOBULIN RATIO 0.8 (1.1-2.4); ANION GAP 12.6 (7-21); BILIRUBIN, TOTAL 1.1 mg/dL (0.2-1.0); CALCIUM 8.8 mg/dL (8.5-10.1); MAGNESIUM 1.3 mg/dL (1.8-2.4); POTASSIUM 3.6 mmol/L (3.5-5.1); PROTEIN, TOTAL 7.2 g/dL (6.4-8.2)
[2024-08-07] MEDS ORDERED: MAGNESIUM SULFATE 2 GM/50 ML BAG IV ONE (12:30)
[2024-08-07] MEDS ORDERED: diphenhydrAMINE HCL 50 MG/ML VIAL ONE (16:06)
[2024-08-07] MEDS ORDERED: diphenhydrAMINE HCL 50 MG/ML VIAL IV ONE (16:15)
[2024-08-07 17:14] VITALS: BP 108/49
--- NOTE | 2024-08-08 20:22 | EKG ---
[facility] [address] [facility] [place] [address] Signed Normal sinus rhythm Right bundle branch block Left posterior fascicular block Bifascicular block Inferior infarct (cited on or before 05-APR-2023) Abnormal ECG When compared with ECG of 05-APR-2023 15:07, Left posterior fascicular block is now present Confirmed by Kyle Dee DO ([id number]) on 08/08/2024 8:21:57 PM Electronically Signed By: KYLE DEE DO 08/08/242021 PATIENT NAME: RACHAEL GARCIA Electrocardiogram DATE OF : 51 PHYSICIAN: KYLE DEE DO REPORT #: [id number] REPORT IS CONFIDENTIAL AND NOT TO BE RELEASED WITHOUT AUTHORIZATION
== END 2024-08-07 17:16 | disposition home or self-care (01) ==
LOC: ED 11:38
PROVIDERS: Emergency Medicine
DX: R07.9 Chest pain, unspecified (principal); R42 Dizziness and giddiness; I10 Essential (primary) hypertension; K21.9 Gastro-esophageal reflux disease without esophagitis; E78.5 Hyperlipidemia, unspecified; J44.9 Chronic obstructive pulmonary disease, unspecified; Z88.2 Allergy status to sulfonamides; Z88.8 Allergy status to other drugs, medicaments and biological substances; Z79.899 Other long term (current) drug therapy
CPT/HCPCS: 36415; 70496; 70498; 71045; 80053; 83735; 84484; 85025; 93005; 93010; 99285-25; A9270; J1200; J2405; J3475; Q9967

== ENCOUNTER 2024-12-23 21:28 | Emergency (ER) | payer MEDICARE, OTHER ==
[~2024-12-23] VITALS: Ht 162.6 cm; Wt 84.6 kg
[2024-12-23] MEDS ORDERED: IMODIUM A-D2 M2 PO (21:53)
[2024-12-23] MEDS ORDERED: NOVOLOG100 UNIT/2 (21:54)
[2024-12-23 23:07] LABS: BASOPHILS 0.6 % (0.1-1.2); EOSINOPHILS 3.3 % (0.7-5.8); LYMPHOCYTES 21.5 % (19.3-51.7); MCH 29.2 PG (25.6-32.2); MCHC 33.2 g/dL (32.2-35.5); MCV 88.0 fL (79.4-94.8); MONOCYTES 6.0 % (4.7-12.5); NEUTROPHILS 68.4 % (34.0-71.1); RBC 3.83 M/uL (3.93-5.22)
[2024-12-23 23:21] LABS: ALT (SGPT) 115.0 U/L (14-59); AST (SGOT) 84.0 U/L (15-37); GLOMERULAR FILTRATION RATE,EST 91.0 mL/min (>60); PROTEIN, TOTAL 6.9 g/dL (6.4-8.2); UREA NITROGEN 18.0 mg/dL (7-18)
[2024-12-23] MEDS ORDERED: MAGNESIUM OXIDE 400 MG TABLET PO ONE (23:45)
[2024-12-24] MEDS ORDERED: PRAMIPEXOLE0.125 MG PO (02:25)
[2024-12-24] MEDS ORDERED: MAGNESIUM OXID400 M1 PO (02:29)
[2024-12-24 02:33] VITALS: BP 164/73
== END 2024-12-24 02:35 | disposition home or self-care (01) ==
LOC: ED 21:28
PROVIDERS: Internal Medicine
DX: G25.81 Restless legs syndrome (principal); R20.0 Anesthesia of skin; I11.9 Hypertensive heart disease without heart failure; E11.9 Type 2 diabetes mellitus without complications; K21.9 Gastro-esophageal reflux disease without esophagitis; J44.9 Chronic obstructive pulmonary disease, unspecified; Z79.82 Long term (current) use of aspirin; Z79.4 Long term (current) use of insulin; Z79.890 Hormone replacement therapy; Z79.899 Other long term (current) drug therapy; Z88.8 Allergy status to other drugs, medicaments and biological substances; Z88.2 Allergy status to sulfonamides; Z91.048 Other nonmedicinal substance allergy status; Z91.030 Bee allergy status
CPT/HCPCS: 36415; 70450; 70496; 70498; 71045; 80053; 83036; 83735; 83880; 84484; 85025; 99284-25; Q9967